=== PATIENT | female | born 1960 ===

== ENCOUNTER 2020-06-03 09:04 | Emergency (ER) | payer MEDICAID, SELFPAY ==
[2020-06-03 09:16] VITALS: BP 115/47; PULSE 87; RESP 20; TEMP 36.6; O2SAT 96; BMI 37.8
[2020-06-03] MEDS: methylPREDNISolone Sod Succ/PF 125 MG/2 ML VIAL IVPUSH (09:38)
[2020-06-03] MEDS: Famotidine/PF 20 MG/2 ML VIAL IVPUSH (09:39)
[2020-06-03] MEDS: diphenhydrAMINE HCL 50 MG/ML VIAL 25 MG IVPUSH (09:39)
--- NOTE | 2020-06-03 09:44 | PC.NURSE ---
PT READS LIPS IF SPOKEN TO IN WELSH SHE WAS MEDICATED CHARTED AWAITING IMPROVEMNT
--- NOTE | 2020-06-03 09:51 | ECG_ITS ---
Test Reason : ALERGI REACTION Blood Pressure : / mmHG Vent. Rate : 067 BPM Atrial Rate : 067 BPM P-R Int : 136 ms QRS Dur : 086 ms QT Int : 452 ms P-R-T Axes : 050 001 048 degrees QTc Int : 477 ms Normal sinus rhythm Septal infarct , age undetermined Abnormal ECG When compared with ECG of 06-MAR-2020 14:38, No significant change was found Referred By: Lissette Cazares Electronically Signed By:JOAQUÍN GRECO
--- NOTE | 2020-06-03 09:53 | ED.ALLEREA ---
HPI - Allergic Reaction General Chief complaint: Allergic Reaction Stated complaint: ALLERGIC REACTION Time Seen by Provider: 06/03/20 09:28 Source: patient Mode of arrival: ambulatory Limitations: language barrier and other ( patient's . Does not do Ecuadorean sign language) History of Present Illness HPI narrative: 59-year-old female with no sig PMHx presenting to ED with allergic reaction/diffuse urticaria x4 days due to unknown source. reports drink water and then had symptoms. Also reports SOB, dizziness, nausea and vomiting. patient has history of similar symptoms in the past which she was seen in the ED. denies throat closing sensation, throat itching, cough, oral swelling, new exposures. clear history difficult due to patient being deaf / language barried and does not use sign language. MD complaint: allergic reaction and hives Symptoms: rash, itching, difficulty breathing, nausea and vomiting Related Data Allergies Allergy/AdvReac Type Severity Reaction Status Date / Time adhesive tape [ADHESIVE TAPE] Allergy Intermediate RASH Unverified 05/14/20 16:36 dolutegravir Allergy Unknown rash Verified 02/12/20 00:00 Review of Systems Review of Systems: Yes all other systems are reviewed and are negative Constitutional: Constitutional: Reports as per HPI, Reports no additional constitutional complaints, Denies chills, Denies fever(s) and Denies headache(s) Eyes: Eyes: Reports as per HPI and Reports no additional eye complaints ENT: Reports system reviewed and no additional complaints, except as documented, Reports as per HPI, Reports dizziness, Denies headache(s) and Denies sore throat Cardiovascular: Cardiovascular: Reports as per HPI, Reports no additional cardiovascular complaints, Denies chest pain and Reports dyspnea Respiratory: Respiratory: Reports as per HPI, Reports no additional respiratory complaints, Reports chest congestion, Denies cough and Reports dyspnea Gastrointestinal: Gastrointestinal: Reports as per HPI, Denies abdominal pain, Denies diarrhea, Reports nausea and Reports vomiting Musculoskeletal: Musculoskeletal: Reports as per HPI Integumentary/Breasts: Skin/Breast: Reports erythema and Reports rash Neurologic: Reports Abnormal speech present, Reports dizziness, Denies headache(s) and Denies Sensory deficit (Neuro) Psychiatric: Psychiatric: Reports no additional psychiatric complaints PMFSH Past Medical History Attestation statement: The following information was validated with the patient. Source: unable to obtain Social History Social History Advance Directives: No Advance Directives Information Provided: No Physical Exam Vital Signs and I&O and Narrative: Vital Signs and I&O: Vital Signs Temp 98 F 06/03/20 09:16 Pulse 73 06/03/20 13:21 Resp 16 06/03/20 12:00 BP 123/75 06/03/20 13:21 Pulse Ox 97 06/03/20 12:00 Intake & Output 06/02/20 06/03/20 06/03/20 18:59 06:59 18:59 Intake Total 1000 / 1000 Balance 1000 / 1000 Weight 90.718 kg Intake: Intake, IV Amoun t 1000 / 1000 0.9 % Sodium C hloride 1,000 ml 1000 / 1000 @ 999 mls/hr I VCONT .Q1H1M APRIL Rx#:[id number] Body Mass Index 37.8 Const: General: cooperative Orientation/consciousness: patient oriented x3 HENMT: Other: no intraoral swelling. Uvula midline Head: Yes normal to inspection General nose exam: Normal external nose present Face and sinus: Yes normal facial exam Mouth: oropharynx normal, no drooling and no muffled voice Throat: Yes posterior oropharynx normal, Yes uvula midline and No uvular edema Eyes: General: appearance normal, both eyes and all related structures Pupils: Equal, round and reactive pupils present EOM: EOMs intact bilaterally Neck: Neck: Yes normal visual inspection and Yes trachea midline Resp: Effort & Inspection: normal respiratory effort and no stridor Auscultation: clear to auscultation bilaterally, no crackles, no rales, no rhonchi and no wheezes Cardio: Rate: regular rate Heart sounds: S1 normal heart sound present and S2 normal heart sound present GI: Inspection: Yes normal to inspection Palpation (GI): Soft to palpation, nontender, no guarding and not rigid Skin: Other: Diffuse urticaria noted to chest /abdomen/back / bilateral upper extremities and bilateral lower extremities with erythema, well demarcated Wounds: no wounds Neuro: General: patient oriented x3 Cranial nerves: Yes CN's II-XII intact bilaterally and Yes Equal, round and reactive pupils present Speech: Abnormal speech present Motor exam (neuro): Motor abnormalities not present Sensory Exam: No Sensory deficit (Neuro) Extrem: General: Yes normal to inspection Course Course Course Narrative: issue with patient's labs being drawn 1429-- patient's labs now resulted , and unremarkable. Orthostatics negative results discussed with patient using science interpreter. She reports symptomatic improvement in the ED, has been comfortable, laughing MDM - Allergic Reaction MDM Narrative Medical decision making narrative: 59-year-old female with no sig PMHx presenting to ED with allergic reaction/diffuse urticaria x4 days due to unknown source. On exam VS, NAD/ well-appearing. Diffuse urticaria noted. Lungs CTA. No intraoral swelling appreciated. Likely allergic reaction. No anaphylaxis. Neurologically intact. Rule out ACS / dehydration / electrolyte abnormalities. Low concern for intra-abdominal pathology Plan: EKG, labs, UA, CXR, symptomatic treatment, reassess. Differential Diagnosis Differential diagnosis: Likely anaphylaxis, allergic reaction, viral enanthem and urticaria Medical Records Attestation: I reviewed the patient's medical records. Lab Data Attestation: I reviewed the patient's lab results. Result diagrams: 06/03/20 13:35 06/03/20 13:35 Labs: Lab Results 06/03/20 06/03/20 06/03/20 Range/Units 13:35 13:35 13:35 WBC 7.8 (4.8-10.8) X10*3/uL RBC 4.52 (4.20-5.50) X10*6/uL Hgb 12.8 (12.0-16.0) g/dl Hct 40.2 (37-47) % MCV 88.9 (80-98) fL MCH 28.3 (27.0-33.0) pg MCHC 31.8 (31.0-35.0) g/dl RDW 12.1 (11.0-16.0) % Plt Count 252 (160-400) X10*3/uL MPV 9.0 L (9.4-12.3) fL Immature Gran % (Auto) 0.3 (0.0-0.4) % Neut % (Auto) 86.2 H (45-73) % Lymph % (Auto) 12.0 L (20-40) % [place] % (Auto) 1.3 L (2-11) % Eos % (Auto) 0.1 (0-4) % Baso % (Auto) 0.1 (0-2) % Neut # (Auto) 6.7 (2.0-8.3) X10*3/uL Lymph # (Auto) 0.9 L (1.2-4.9) X10*3/uL [place] # (Auto) 0.1 (0.1-1.2) X10*3/uL Eos # (Auto) 0.0 (0.0-0.4) X10*3/uL Baso # (Auto) 0.0 (0.0-0.2) X10*3/uL Abs Immat Gran (auto) 0.02 (0.00-0.03) X10*3/uL Absolute Nucleated RBC 0.000 (0.0-0.012) X10*3/uL Nucleated RBC % (auto) 0.0 (0.0-0.2) /100WBC Sodium 141 (135-145) mmol/L Potassium 4.0 (3.3-5.1) mmol/l Chloride 110 H (96-108) mmol/L Carbon Dioxide 23 (22-29) mmol/L Anion Gap 12 (12-20) BUN 15 (9-16) mg/dL Creatinine 0.70 (0.5-1.4) mg/dL Estim Creat Clear Calc 88.7 Estimated GFR > 60 Random Glucose 136 H (60-115) mg/dL Calcium 8.1 L (8.4-10.2) mg/dL Magnesium 2.0 (1.6-2.6) mg/dL Total Bilirubin 0.3 (0.0-1.0) mg/dL Direct Bilirubin < 0.2 (0.0-0.5) mg/dL AST 17 (5-31) U/L ALT 18 (0-31) U/L Alkaline Phosphatase 71 (39-117) U/L Troponin I High Sens < 3.5 (<3.5-17.0) ng/L Total Protein 6.3 L (6.5-8.0) g/dL Albumin 3.8 (3.5-5.0) g/dL Lipase 18 (8-78) U/L Discharge Plan Discharge Clinical Impression: Urticaria, Allergic reaction Patient Disposition: Home, Self-Care Instructions: General Allergic Reaction (ED) Additional Instructions: your blood work was unremarkable today in ED. Her vital signs were also okay from standing to sitting Your rash has subsided Take Benadryl at home as needed for itching/inflammation. You may also take Zyrtec during the day as it will not make you drowsy If her symptoms recur, persist, he developed shortness of breath, cough, rash again, oral swelling, or difficulty swallowing return to the ED immediately Referrals: Benja Silvestre MD [Physician] - 3 days Print Language: Swazi
[2020-06-03 10:16] VITALS: BP 138/66; PULSE 67; RESP 18; O2SAT 98
[2020-06-03] MEDS: 0.9 % Sodium Chloride 1,000 ML 999 ML IVCONT (10:17)
[2020-06-03] MEDS: ondansetron HCL 4 MG/2 ML VIAL IVPUSH (10:22)
[2020-06-03 12:00] VITALS: BP 125/73; PULSE 63; RESP 16; O2SAT 97
[2020-06-03 13:14] VITALS: BP 111/59; PULSE 60
[2020-06-03 13:19] VITALS: BP 113/73; PULSE 67
[2020-06-03 13:21] VITALS: BP 123/75; PULSE 73
[2020-06-03 13:42] LABS: MANUAL DIFF FLAG NO
[2020-06-03 13:44] LABS: Basophils Percent Auto 0.1 % (0-2); Eosinophils Percent Auto 0.1 % (0-4); Hematocrit 40.2 % (37-47); Hemoglobin 12.8 g/dl (12.0-16.0); Imm Gran Abs Auto 0.02 X10*3/uL (0.00-0.03); Imm Gran Pct Auto 0.3 % (0.0-0.4); Lymphocytes Absolute Auto 0.9 X10*3/uL (1.2-4.9); Mean Corpuscular HGB Conc 31.8 g/dl (31.0-35.0); Mean Corpuscular Hemoglobin 28.3 pg (27.0-33.0); Mean Corpuscular Volume 88.9 fL (80-98); Monocytes Absolute Auto 0.1 X10*3/uL (0.1-1.2); Monocytes Percent Auto 1.3 % (2-11); Neutrophils Absolute Auto 6.7 X10*3/uL (2.0-8.3); Neutrophils Percent Auto 86.2 % (45-73); Platelet Count 252 X10*3/uL (160-400); Red Blood Count 4.52 X10*6/uL (4.20-5.50); Red Cell Distribution Width 12.1 % (11.0-16.0); White Blood Count 7.8 X10*3/uL (4.8-10.8)
[2020-06-03 14:11] LABS: Alanine Aminotransferase 18 U/L (0-31); Albumin Level 3.8 g/dL (3.5-5.0); Alkaline Phosphatase 71 U/L (39-117); Anion Gap 12 (12-20); Aspartate Amino Transferase 17 U/L (5-31); Bilirubin Direct < 0.2 mg/dL (0.0-0.5); Bilirubin Total 0.3 mg/dL (0.0-1.0); Blood Urea Nitrogen 15 mg/dL (9-16); Calcium 8.1 mg/dL (8.4-10.2); Carbon Dioxide 23 mmol/L (22-29); Chloride 110 mmol/L (96-108); Creatinine Clr Calc Pharmacy 88.7; Estimated Glomerular Filt Rate > 60; Glucose Random 136 mg/dL (60-115); Lipase 18 U/L (8-78); Sodium 141 mmol/L (135-145); Total Protein 6.3 g/dL (6.5-8.0)
[2020-06-03 14:17] LABS: Troponin-I High Sensitivity < 3.5 ng/L (<3.5-17.0)
== END 2020-06-03 14:50 | disposition home or self-care (01) ==
PROVIDERS: Physician Assistant; Emergency Provider Emergency Medicine
DX: T78.40XA Allergy, unspecified, initial encounter (principal); L50.9 Urticaria, unspecified; X58.XXXA Exposure to other specified factors, initial encounter
CPT/HCPCS: 36415; 80048; 80076; 83690; 83735; 84484; 85025; 93005; 93010; 96361; 96374; 96375; 99284; J1200; J2405; J2930

== ENCOUNTER 2020-06-04 10:10 | Outpatient (REF) | payer MEDICAID, SELFPAY | END 2020-06-04 10:11 | disposition home or self-care (01) | LOC: HO.HAP 10:10 | PROVIDERS: Visit Provider Family Medicine | DX: Z46.1 Encounter for fitting and adjustment of hearing aid (principal) | CPT/HCPCS: 92592 ==

== ENCOUNTER 2020-06-16 12:00 | Outpatient (REF) | payer MEDICAID, SELFPAY ==
--- NOTE | 2020-06-16 12:26 | XR_ITS ---
EXAMINATION: XR SHOULDER, LEFT CLINICAL INFORMATION: Shoulder pain. COMPARISON: None TECHNIQUE: Left shoulder is imaged in 3 views. FINDINGS: There is no fracture or dislocation. The acromioclavicular alignment is normal. The glenohumeral joint is unremarkable. There are no visible rotator cuff calcifications. Bony mineralization appears normal. No destructive process. IMPRESSION: Unremarkable left shoulder.
== END 2020-06-16 12:01 | disposition home or self-care (01) ==
LOC: HO.XRAY 12:00
PROVIDERS: PCP Family Medicine; Referring Provider Family Medicine; Visit Provider Orthopaedic Surgery
DX: M25.511 Pain in right shoulder (principal); M75.42 Impingement syndrome of left shoulder
CPT/HCPCS: 20610; 73030; 99214; J1040

== ENCOUNTER 2020-07-22 17:22 | Observation (INO) | payer MEDICAID, SELFPAY ==
[2020-07-22 17:29] VITALS: BP 158/76; BP 184/79; PULSE 76; PULSE 82; RESP 16; TEMP 37.2; O2SAT 98; BMI 32.5
--- NOTE | 2020-07-22 17:33 | ED.ASTHMA ---
HPI - Asthma General Chief Complaint: Asthma Stated Complaint: diff breathing Time Seen by Provider: 07/22/20 17:33 Source: patient and EMS Mode of arrival: EMS Limitations: language barrier History of Present Illness MD complaint: asthma attack and shortness of breath Onset (ago): hour(s) (few) Severity: moderate Context: recent URI Associated symptoms: dry cough Treatments Prior to Arrival: inhaled bronchodilator Related Data Home Medications Medication Instructions Recorded Confirmed emtricitabine 200 mg-rilpivirine 1 tab PO DAILY 06/16/20 07/22/20 25 mg-tenofovir alafenam 25 mg tablet fluticasone propionate 220 1 puff INHALATION BID 06/16/20 07/22/20 mcg/actuation HFA aerosol inhaler ibuprofen 600 mg tablet 600 mg PO TID 06/16/20 07/22/20 tamoxifen 20 mg tablet 20 mg PO DAILY 06/16/20 07/22/20 tramadol 50 mg tablet 50 mg PO DAILY 06/16/20 07/22/20 albuterol sulfate [ProAir HFA] 2 puff INHALATION Q6H PRN 07/22/20 07/22/20 Allergies Allergy/AdvReac Type Severity Reaction Status Date / Time adhesive tape [ADHESIVE TAPE] Allergy Intermediate RASH Verified 06/16/20 12:43 dolutegravir Allergy Unknown rash Verified 06/16/20 12:43 Review of Systems Review of Systems: Constitutional : No Fever, No Chills ENT/Mouth : No Hoarseness, No sore throat, No Rhinorrhea Eyes: No Redness, No Discharge, No Vision Changes Cardiovascular : No Chest Pain, positive SOB, positive Dyspnea on Exertion, No Edema Respiratory : positive Cough, No Sputum, positive Wheezing, Gastrointestinal : No Nausea, No Vomiting, No Diarrhea, No abdominal Pain Genitourinary : No Dysuria, No Hematuria Musculoskeletal : No joint pain, No Myalgias Skin : No rash Neuro : No Weakness, No Numbness, No Headache Psych : No anxiety, depression Heme/Lymph: No Bruising, No Bleeding Endocrine : No Polyuria, No Polydipsia All other systems reviewed and are negative [facility] Past Medical History Attestation statement: The following information was validated with the patient. Medical History Deafness History of breast cancer HIV (human immunodeficiency virus infection) Primary osteoarthritis of left knee Primary osteoarthritis of right knee Surgical History History of tubal ligation Status post right breast lumpectomy Social History Social History Smoking Status: Never smoker Advance Directives: No Advance Directives Information Provided: Yes Current occupational status: disabled Current occupation: Right Handed Physical Exam Vital Signs: Vital Signs: Last Vital Signs Temp 98.4 F 07/22/20 18:13 Pulse 74 07/22/20 18:13 Resp 16 07/22/20 18:13 BP 145/77 H 07/22/20 18:13 Pulse Ox 96 07/22/20 18:13 Body Mass Index 32.5 Appearance: Alert. Oriented X3. mild acute distress. Eyes: Pupils equal, round and reactive to light. ENT: Pharynx normal. Neck: Normal inspection. Neck supple. CVS: tachycardic heart rate and rhythm. Pulses normal. Respiratory: mildrespiratory distress. Breath sounds insp/exp wheezes, + tachypnea, mild retractions Abdomen: Soft and nontender. Skin: Skin warm and dry. Normal skin color. Normal skin turgor. Extremities: No lower extremity edema. No calf ttp Neuro: Oriented X 3. No motor deficit. No sensory deficit. Course Course Course Narrative: repeat 5mg neb for wheezing at this time still very tight - will need admission for further workup MDM - Asthma MDM Narrative Medical decision making narrative: 60 yo female with asthma and HIV at a family event here with reported URI and wheezing - will need MDI INH, IV steroids, labs, CXR, flu and COVID swab, dispo per results and findings. Lab Data Result diagrams: 07/22/20 18:11 07/22/20 18:11 Labs: Lab Results 07/22/20 07/22/20 07/22/20 Range/Units 18:11 18:11 18:11 WBC 5.8 (4.8-10.8) X10*3/uL RBC 3.99 L (4.20-5.50) X10*6/uL Hgb 11.3 L (12.0-16.0) g/dl Hct 35.6 L (37-47) % MCV 89.2 (80-98) fL MCH 28.3 (27.0-33.0) pg MCHC 31.7 (31.0-35.0) g/dl RDW 12.2 (11.0-16.0) % Plt Count 241 (160-400) X10*3/uL MPV 9.1 L (9.4-12.3) fL Immature Gran % (Auto) 0.2 (0.0-0.4) % Neut % (Auto) 52.5 (45-73) % Lymph % (Auto) 37.1 (20-40) % [place] % (Auto) 7.0 (2-11) % Eos % (Auto) 2.9 (0-4) % Baso % (Auto) 0.3 (0-2) % Lymph # (Auto) 2.2 (1.2-4.9) X10*3/uL [place] # (Auto) 0.4 (0.1-1.2) X10*3/uL Eos # (Auto) 0.2 (0.0-0.4) X10*3/uL Baso # (Auto) 0.0 (0.0-0.2) X10*3/uL Abs Immat Gran (auto) 0.01 (0.00-0.03) X10*3/uL Absolute Neuts (auto) 3.1 (2.0-8.3) X10*3/uL Absolute Nucleated RBC 0.000 (0.0-0.012) X10*3/uL Nucleated RBC % (auto) 0.0 (0.0-0.2) /100WBC Hold Blue Top SEE NOTE Sodium 139 (135-145) mmol/L Potassium 4.1 (3.3-5.1) mmol/l Chloride 106 (96-108) mmol/L Carbon Dioxide 23 (22-29) mmol/L Anion Gap 14 (12-20) BUN 16 (9-16) mg/dL Creatinine 0.77 (0.5-1.4) mg/dL Estim Creat Clear Calc 88.6 Estimated GFR > 60 Random Glucose 138 H (60-115) mg/dL Calcium 8.2 L (8.4-10.2) mg/dL Coronavirus (PCR) (Negative) Influenza Type A (PCR) (Negative) Influenza Type B (PCR) (Negative) RSV RNA Qual (PCR) (Negative) 07/22/20 Range/Units 18:11 WBC (4.8-10.8) X10*3/uL RBC (4.20-5.50) X10*6/uL Hgb (12.0-16.0) g/dl Hct (37-47) % MCV (80-98) fL MCH (27.0-33.0) pg MCHC (31.0-35.0) g/dl RDW (11.0-16.0) % Plt Count (160-400) X10*3/uL MPV (9.4-12.3) fL Immature Gran % (Auto) (0.0-0.4) % Neut % (Auto) (45-73) % Lymph % (Auto) (20-40) % [place] % (Auto) (2-11) % Eos % (Auto) (0-4) % Baso % (Auto) (0-2) % Lymph # (Auto) (1.2-4.9) X10*3/uL [place] # (Auto) (0.1-1.2) X10*3/uL Eos # (Auto) (0.0-0.4) X10*3/uL Baso # (Auto) (0.0-0.2) X10*3/uL Abs Immat Gran (auto) (0.00-0.03) X10*3/uL Absolute Neuts (auto) (2.0-8.3) X10*3/uL Absolute Nucleated RBC (0.0-0.012) X10*3/uL Nucleated RBC % (auto) (0.0-0.2) /100WBC Hold Blue Top Sodium (135-145) mmol/L Potassium (3.3-5.1) mmol/l Chloride (96-108) mmol/L Carbon Dioxide (22-29) mmol/L Anion Gap (12-20) BUN (9-16) mg/dL Creatinine (0.5-1.4) mg/dL Estim Creat Clear Calc Estimated GFR Random Glucose (60-115) mg/dL Calcium (8.4-10.2) mg/dL Coronavirus (PCR) NEGATIVE (Negative) Influenza Type A (PCR) NEGATIVE (Negative) Influenza Type B (PCR) NEGATIVE (Negative) RSV RNA Qual (PCR) NEGATIVE (Negative) Critical Care Time Critical Care Time Critical Care Time: Yes Total Critical Care Time: 35 Attestation: I attest to this time spent taking care of the patient Discharge Plan Discharge Clinical Impression: Asthma Patient Disposition: Admitted As Inpatient Prescriptions: No Action albuterol sulfate [ProAir HFA] 90 mcg/actuation Hfa Aerosol Inhaler 2 puff INHALATION Q6H PRN (Reason: Shortness Of Breath) RF: 0 [place] 200-25-25 mg tablet 1 tab PO DAILY RF: 0 ibuprofen 600 mg tablet 600 mg PO TID RF: 0 Flovent HFA 220 mcg/actuation HFA aerosol inhaler 1 puff inhalation BID RF: 0 tamoxifen 20 mg tablet 20 mg PO DAILY RF: 0 tramadol 50 mg tablet 50 mg PO DAILY RF: 0
--- NOTE | 2020-07-22 17:53 | XR_ITS ---
EXAMINATION: XR CHEST CLINICAL INFORMATION: Dyspnea COMPARISON: Chest radiograph 03/06/2020 and CTA PE study 03/07/2019 TECHNIQUE: Frontal view of the chest was obtained. FINDINGS: Heart size is borderline appears slightly smaller than noted previously. Some of this could be due to projection. There is mild upper zone redistribution which may be indicative of elevated left ventricular end-diastolic pressure and mild pulmonary vascular congestion. No gross edema is seen. No pleural effusions are present. No consolidations or lung masses. XR/XR chest 1V IMPRESSION: Borderline heart size. Mild upper zone redistribution suggesting mild pulmonary vascular congestion without edema.
[2020-07-22 18:13] VITALS: BP 145/77; PULSE 74; RESP 16; TEMP 36.9; O2SAT 96
[2020-07-22 18:19] LABS: Basophils Percent Auto 0.3 % (0-2); Eosinophils Absolute Auto 0.2 X10*3/uL (0.0-0.4); Eosinophils Percent Auto 2.9 % (0-4); Hematocrit 35.6 % (37-47); Hemoglobin 11.3 g/dl (12.0-16.0); Imm Gran Abs Auto 0.01 X10*3/uL (0.00-0.03); Imm Gran Pct Auto 0.2 % (0.0-0.4); Lymphocytes Absolute Auto 2.2 X10*3/uL (1.2-4.9); Lymphocytes Percent Auto 37.1 % (20-40); Mean Corpuscular HGB Conc 31.7 g/dl (31.0-35.0); Mean Corpuscular Hemoglobin 28.3 pg (27.0-33.0); Mean Corpuscular Volume 89.2 fL (80-98); Mean Platelet Volume 9.1 fL (9.4-12.3); Monocytes Absolute Auto 0.4 X10*3/uL (0.1-1.2); Neutrophils Absolute Auto 3.1 X10*3/uL (2.0-8.3); Neutrophils Percent Auto 52.5 % (45-73); Platelet Count 241 X10*3/uL (160-400); Red Blood Count 3.99 X10*6/uL (4.20-5.50); Red Cell Distribution Width 12.2 % (11.0-16.0); White Blood Count 5.8 X10*3/uL (4.8-10.8)
[2020-07-22 18:20] LABS: MANUAL DIFF FLAG NO
[2020-07-22] MEDS: Albuterol Sulfate (0.083%) 2.5 MG/3 ML VIAL.NEB 5 MG INHALE ×2 (18:20→19:35)
[2020-07-22 18:40] LABS: Anion Gap 14 (12-20); Blood Urea Nitrogen 16 mg/dL (9-16); Calcium 8.2 mg/dL (8.4-10.2); Carbon Dioxide 23 mmol/L (22-29); Chloride 106 mmol/L (96-108); Creatinine Clr Calc Pharmacy 88.6; Estimated Glomerular Filt Rate > 60; Glucose Random 138 mg/dL (60-115); Potassium 4.1 mmol/l (3.3-5.1); Sodium 139 mmol/L (135-145)
[2020-07-22] MEDS: methylPREDNISolone Sod Succ/PF 125 MG/2 ML VIAL 60 MG IVPUSH (18:58)
[2020-07-22 19:00] LABS: Influenza A PCR NEGATIVE (Negative); Influenza B PCR NEGATIVE (Negative); Resp Syncy Virus RNA Qual PCR NEGATIVE (Negative); SARS COV2 PCR INHOUSE NEGATIVE (Negative)
[2020-07-22] MEDS: Magnesium Sulfate/H2O 2 GM/50 ML PIGGYBACK IV (19:00)
[2020-07-22 20:00] VITALS: BP 142/62; PULSE 81; RESP 16; TEMP 36.9; O2SAT 95
[2020-07-22 21:57] VITALS: BP 124/55; PULSE 78; RESP 16; TEMP 36.9; O2SAT 99
--- NOTE | 2020-07-22 23:03 | PM.IMHP ---
History of Present Illness Date of Service: 07/22/20 Chief Complaint: wheezing, sob this is a mute, deaf 6-year-old patient who presents to the hospital with complaints of shortness of breath. History is obtained with the help of medical interpreter she is able to read lips Mexican only. patient has a history of asthma, HIV,ductal carcinoma in situ of breast. She reports shortness of breath that started yesterday including wheezing, coughing, with no sputum production. Some chills with no fever. No sick contacts or recent travel. No orthopnea or PND. No lower extremity edema. Patient otherwise has no other symptoms including no headache, change in vision, nausea vomiting, abdominal pain diarrhea or constipation. No urinary symptoms. patient reports chronic knee pain as well as shoulder pain is a the setting of history of osteoarthritis. On arrival to the ED hemodynamically stable with no significant abnormal vitals except for a blood pressure 184/79. Patient is satting 97% on room air. labs unremarkable respiratory viral panel including COVID-19 negative Chest x-ray shows borderline heart size, mild upper zone distribution suggestive of mild pulmonary vascular congestion without edema Past medical history: Asthma, HIV, ductal carcinoma in-situ of breast past surgical history: Hernia repair, lumpectomy, eventual mastectomy, tubal ligation family history: denies social history: Denies tobacco alcohol or illicit drugs Review of Systems Review of Systems: Yes all other systems are reviewed and are negative [facility] Medical History (Updated 07/23/20 @ 05:38 by Meghana Simeon MD) Deafness History of breast cancer HIV (human immunodeficiency virus infection) Primary osteoarthritis of left knee Primary osteoarthritis of right knee Surgical History History of tubal ligation Status post right breast lumpectomy Social History Smoking Status: Unknown if ever smoked Smoked in Last 30 Days: No Use of substances other than those prescribed or required for medical reasons: No Advance Directives: No Advance Directives Information Provided: Yes Current occupational status: disabled Current occupation: Right Handed Meds Allergies Allergy/AdvReac Type Severity Reaction Status Date / Time adhesive tape [ADHESIVE TAPE] Allergy Intermediate RASH Verified 06/16/20 12:43 dolutegravir Allergy Unknown rash Verified 06/16/20 12:43 Home Medications Medication Instructions Recorded Confirmed Type emtricitabine 200 mg-rilpivirine 1 tab PO DAILY 06/16/20 07/22/20 History 25 mg-tenofovir alafenam 25 mg tablet fluticasone propionate 220 1 puff INHALATION BID 06/16/20 07/22/20 History mcg/actuation HFA aerosol inhaler ibuprofen 600 mg tablet 600 mg PO TID 06/16/20 07/22/20 History tamoxifen 20 mg tablet 20 mg PO DAILY 06/16/20 07/22/20 History tramadol 50 mg tablet 50 mg PO DAILY 06/16/20 07/22/20 History albuterol sulfate [ProAir HFA] 2 puff INHALATION Q6H PRN 07/22/20 07/22/20 History Physical Exam Vital Signs and Narrative: Vital Signs: Last Vital Signs Temp 98.5 F 07/22/20 21:57 Pulse 78 07/22/20 21:57 Resp 16 07/22/20 21:57 BP 124/55 L 07/22/20 21:57 Pulse Ox 99 07/22/20 21:57 Body Mass Index 32.5 Const: General: cooperative and no acute distress Orientation/consciousness: patient oriented x3 Eyes: General: appearance normal, both eyes and all related structures Pupils: Equal, round and reactive pupils present Resp: Effort & Inspection: normal respiratory effort, able to speak in complete sentences and abnormal respiratory pattern Auscultation: clear to auscultation bilaterally Cardio: Rate: regular rate Rhythm: regular rhythm GI: Palpation (GI): Soft to palpation Auscultation: normal bowel sounds Skin: General skin exam: no rashes or lesions noted Neuro: General: patient oriented x3 Cranial nerves: Yes Equal, round and reactive pupils present Cognition (Neuro): normal cognition Extrem: General: Yes normal to inspection and Yes no pedal edema Results Labs CBC and Chem 7: 07/22/20 18:11 07/22/20 18:11 Labs: Laboratory Results - last 24 hr 07/22/20 07/22/20 07/22/20 18:11 18:11 18:11 MCV 89.2 MCH 28.3 MCHC 31.7 RDW 12.2 Plt Count 241 MPV 9.1 L Immature Gran % (Auto) 0.2 Neut % (Auto) 52.5 Lymph % (Auto) 37.1 [place] % (Auto) 7.0 Eos % (Auto) 2.9 Baso % (Auto) 0.3 Lymph # (Auto) 2.2 [place] # (Auto) 0.4 Eos # (Auto) 0.2 Baso # (Auto) 0.0 Abs Immat Gran (auto) 0.01 Absolute Neuts (auto) 3.1 Absolute Nucleated RBC 0.000 Nucleated RBC % (auto) 0.0 Hold Blue Top SEE NOTE Anion Gap 14 Estim Creat Clear Calc 88.6 Estimated GFR > 60 Random Glucose 138 H Calcium 8.2 L Coronavirus (PCR) Influenza Type A (PCR) Influenza Type B (PCR) RSV RNA Qual (PCR) 07/22/20 18:11 MCV MCH MCHC RDW Plt Count MPV Immature Gran % (Auto) Neut % (Auto) Lymph % (Auto) [place] % (Auto) Eos % (Auto) Baso % (Auto) Lymph # (Auto) [place] # (Auto) Eos # (Auto) Baso # (Auto) Abs Immat Gran (auto) Absolute Neuts (auto) Absolute Nucleated RBC Nucleated RBC % (auto) Hold Blue Top Anion Gap Estim Creat Clear Calc Estimated GFR Random Glucose Calcium Coronavirus (PCR) NEGATIVE Influenza Type A (PCR) NEGATIVE Influenza Type B (PCR) NEGATIVE RSV RNA Qual (PCR) NEGATIVE Imaging Radiologist's Impressions: Impressions Chest X-Ray 07/22/20 17:53 IMPRESSION: Borderline heart size. Mild upper zone redistribution suggesting mild pulmonary vascular congestion without edema. Assessment and Plan (1) Asthma exacerbation: Status: Acute (2) History of breast cancer: Status: Acute (3) HIV (human immunodeficiency virus infection): Status: Acute (4) Right knee pain: Status: Acute This is a 6-year-old female who presents to the hospital with dyspnea, wheezing found to have asthma exacerbation # dyspnea - most likely secondary to asthma exacerbation versus CHF less likely - denies any orthopnea or PND and no lower extremity edema present - patient has evidence of pulmonary congestion on chest x-ray, will obtain BNP is elevated will further treat with furosemide - will start her on Solu-Medrol, DuoNeb q.i.d. and p.r.n # asthma exacerbation - has wheezing, dyspnea, cough that is dry - will manage as above # right knee pain - no erythema, no swelling, no warmth - has limited range of motion due to pain - most likely secondary to her history of arthritis - pain management with Tylenol # history of breast cancer - status post mastectomy - continue tamoxifen # history of HIV - continue home medication DVT prophylaxis: heparin subcu
[2020-07-22 23:13] VITALS: BP 156/74; PULSE 83; RESP 19; TEMP 36.4; O2SAT 98
[2020-07-22 23:15] VITALS: BP 156/74; PULSE 86; RESP 19; TEMP 36.4; O2SAT 98
[2020-07-22] MEDS: Enoxaparin Sodium 40 MG/0.4 ML SYRINGE SUBCUT (23:49)
[2020-07-22] MEDS: 0.9 % Sodium Chloride Flush 3 ML SYRINGE IVFLUSH (23:49)
[2020-07-23] VITALS (9 sets, daily range): BP systolic 139–191; BP diastolic 73–91; PULSE 74–95; RESP 16–20; TEMP 35.9–37.1; O2SAT 96–100
[2020-07-23] MEDS: Acetaminophen 325 MG TABLET 650 MG PO ×2 (03:44→19:47)
[2020-07-23] MEDS: 0.9 % Sodium Chloride Flush 3 ML SYRINGE IVFLUSH ×3 (07:34→22:28)
[2020-07-23 08:08] LABS: Basophils Percent Auto 0.1 % (0-2); Hematocrit 37.7 % (37-47); Hemoglobin 12.2 g/dl (12.0-16.0); Imm Gran Abs Auto 0.03 X10*3/uL (0.00-0.03); Imm Gran Pct Auto 0.4 % (0.0-0.4); Lymphocytes Absolute Auto 1.1 X10*3/uL (1.2-4.9); MANUAL DIFF FLAG NO; Mean Corpuscular HGB Conc 32.4 g/dl (31.0-35.0); Mean Corpuscular Hemoglobin 28.3 pg (27.0-33.0); Mean Corpuscular Volume 87.5 fL (80-98); Mean Platelet Volume 9.3 fL (9.4-12.3); Monocytes Absolute Auto 0.1 X10*3/uL (0.1-1.2); Neutrophils Absolute Auto 7.1 X10*3/uL (2.0-8.3); Neutrophils Percent Auto 85.5 % (45-73); Platelet Count 257 X10*3/uL (160-400); Red Blood Count 4.31 X10*6/uL (4.20-5.50); Red Cell Distribution Width 12.2 % (11.0-16.0); White Blood Count 8.3 X10*3/uL (4.8-10.8)
[2020-07-23 08:35] LABS: Anion Gap 15 (12-20); Blood Urea Nitrogen 12 mg/dL (9-16); Calcium 8.4 mg/dL (8.4-10.2); Carbon Dioxide 21 mmol/L (22-29); Chloride 104 mmol/L (96-108); Creatinine Clr Calc Pharmacy 101.7; Estimated Glomerular Filt Rate > 60; Glucose Random 170 mg/dL (60-115); Potassium 4.5 mmol/l (3.3-5.1); Sodium 135 mmol/L (135-145)
[2020-07-23 08:43] LABS: B Type Natriuretic Peptide 35 pg/mL (<100)
[2020-07-23] MEDS: Albuterol/Iprat 2.5/0.5MG 3 ML AMPUL.NEB INHALE ×3 (08:52→21:13)
[2020-07-23] MEDS: Tamoxifen Citrate 10 MG TABLET 20 MG PO (10:09)
[2020-07-23] MEDS: Emtricitabine/Tenofov Alafenam TABLET 1 TAB PO (10:10)
[2020-07-23] MEDS: Rilpivirine HCL 25 MG TABLET PO (10:10)
[2020-07-23] MEDS: traMADoL HCL 50 MG TABLET PO (10:10)
--- NOTE | 2020-07-23 13:02 | HO.PM.IMPN ---
Subjective Subjective Date of Service: 07/23/20 Interval History: the patient was seen and evaluated this morning Laying in bed, feels comfortable, receiving nebulizer treatment Denies any fever, chills No reported other overnight events. Systemic review: No fever, chills or weakness No chest pain, palpitation Reporting wheezing and mild shortness of breath and coughing No abdominal pain, nausea or vomiting No urinary symptoms Physical Exam Vital Signs: Vital Signs: Last Vital Signs Temp 97.7 F 07/23/20 11:37 Pulse 86 07/23/20 11:37 Resp 18 07/23/20 11:37 BP 191/77 H 07/23/20 11:37 Pulse Ox 96 07/23/20 11:37 Body Mass Index 32.5 Constitutional : Patient is mute and deaf , Alert, not in distress Neck : Normal inspection, Supple Cardiovascular : RRR, S1 S2, no lower extremity edema Respiratory : Decreased bilateral air entry with bilateral wheezing but no crackles noted Gastrointestinal: soft, lax, Normal bowel sounds, Non tender Skin : Warm/Dry, No rash Neurological : Alert, interactive, No focal deficit Objective Data Current Medications Generic Name Dose Route Start Last Admin Trade Name Freq PRN Reason Stop Dose Admin Acetaminophen 650 mg 07/22/20 23:01 07/23/20 03:44 Acetaminophen 325 Mg Tablet PO 650 mg Q6H PRN Administration Pain, Mild (Pain Scale 1-3) Albuterol/Ipratropium 3 ml 07/22/20 23:01 Albuterol/Iprat 2.5/0.5mg 3 Ml Ampul.Neb INHALE RQ4H PRN Shortness of Breath/Wheezing Albuterol/Ipratropium 3 ml 07/23/20 08:00 07/23/20 12:48 Albuterol/Iprat 2.5/0.5mg 3 Ml Ampul.Neb INHALE Not Given RQ4H WHILE AWAKE APRIL Docusate Sodium 100 mg 07/22/20 23:01 Docusate Sodium 100 Mg Capsule PO DAILY PRN Constipation Emtricitabine/Tenofovir Alafenamide 1 tab 07/23/20 09:00 07/23/20 10:10 Emtricitabine/Tenofov Alafenam Tablet PO 1 tab DAILY APRIL Administration Heparin Sodium (Porcine) 5,000 unit 07/23/20 23:00 Heparin Sodium,Porcine 5,000 Unit/Ml Vial SUBCUT Q12H APRIL Methylprednisolone Sodium Succinate 40 mg 07/22/20 23:01 07/23/20 10:10 Methylprednisolone Sod Succ/Pf 40 Mg/Ml Vial IVPUSH 40 mg Q12H APRIL Administration Ondansetron HCl 4 mg 07/22/20 23:01 Ondansetron Hcl 4 Mg/2 Ml Vial IVPUSH Q8H PRN Nausea and Vomiting Pharmacy Consult 1 each 07/22/20 19:24 Consult Rx Perform Med Rec MISCELLANE ONCE PRN Consult order Rilpivirine 25 mg 07/23/20 09:00 07/23/20 10:10 Rilpivirine Hcl 25 Mg Tablet PO 25 mg DAILY APRIL Administration Sodium Chloride 3 ml 07/23/20 00:00 07/23/20 07:34 0.9 % Sodium Chloride Flush 3 Ml Syringe IVFLUSH 3 ml QSHIFT APRIL Administration Tamoxifen Citrate 20 mg 07/23/20 09:00 07/23/20 10:09 Tamoxifen Citrate 10 Mg Tablet PO 20 mg DAILY APRIL Administration Tramadol HCl 50 mg 07/23/20 09:00 07/23/20 10:10 Tramadol Hcl 50 Mg Tablet PO 50 mg DAILY APRIL Administration Labs CBC & Chem 7: 07/23/20 07:23 07/23/20 07:23 Assessment and Plan (1) Asthma exacerbation: Status: Acute (2) History of breast cancer: Status: Acute (3) HIV (human immunodeficiency virus infection): Status: Acute (4) Right knee pain: Status: Acute Assessment and Plan: This is a 60-year-old female who presents to the hospital with dyspnea, wheezing found to have asthma exacerbation Asthma exacerbation CXR showing mild pulmonary congestion, normal BNP Continue IV Solu-Medrol Continue DuoNeb q.i.d. and p.r.n right knee pain no erythema, no swelling, no warmth likely secondary to history of arthritis pain management with Tylenol history of breast cancer status post mastectomy continue tamoxifen history of HIV continue home medication DVT prophylaxis heparin subcu
--- NOTE | 2020-07-23 16:09 | MHC.CM.PN ---
CM MET WITH PT WITH THE ASSISTANCE OF GENERAL ASSEMBLER INSTALLER. PT IS DEAF, BUT IS ABLE TO READ LIPS AND USE SIGN LANGUAGE. PT REPORTS SHE LIVES ALONE AND IS FULLY INDEPENDENT. PT REPORTS SHE HAD A CANE BUT IT BROKE AND SHE HAS A CPAP. PT REPORTS SHE HAS NO IN HOME SERVICES. PT STATES SHE HAS A PCP WHICH IS ON FILE. PT DOES NOT HAVE A HCP AND REPORTS SHE HAS NO ONE TO NAME. PT REPORTS SHE USES [facility] AND SHE WILL ARRANGE THE SAME TO GET HOME AT [place]. CURRENT DC PLAN IS HOME WITH NO SERVICES
[2020-07-23] MEDS: Heparin Sodium,Porcine 5,000 UNIT/ML VIAL 5000 UNIT SUBCUT (22:27)
[2020-07-24 02:44] VITALS: BP 161/75; PULSE 88; RESP 18; TEMP 36.4; O2SAT 96
[2020-07-24 07:16] LABS: Hematocrit 39.7 % (37-47); Hemoglobin 12.5 g/dl (12.0-16.0); Mean Corpuscular HGB Conc 31.5 g/dl (31.0-35.0); Mean Corpuscular Hemoglobin 27.8 pg (27.0-33.0); Mean Corpuscular Volume 88.4 fL (80-98); Mean Platelet Volume 9.2 fL (9.4-12.3); Platelet Count 299 X10*3/uL (160-400); Red Blood Count 4.49 X10*6/uL (4.20-5.50); Red Cell Distribution Width 12.4 % (11.0-16.0); White Blood Count 14.2 X10*3/uL (4.8-10.8)
[2020-07-24] MEDS: 0.9 % Sodium Chloride Flush 3 ML SYRINGE IVFLUSH (07:38)
[2020-07-24 07:57] LABS: Anion Gap 15 (12-20); Blood Urea Nitrogen 14 mg/dL (9-16); Calcium 8.7 mg/dL (8.4-10.2); Carbon Dioxide 21 mmol/L (22-29); Chloride 104 mmol/L (96-108); Creatinine Clr Calc Pharmacy 104.9; Estimated Glomerular Filt Rate > 60; Glucose Random 150 mg/dL (60-115); Potassium 4.4 mmol/l (3.3-5.1); Sodium 136 mmol/L (135-145)
[2020-07-24 08:00] VITALS: BP 127/63; PULSE 76; RESP 18; TEMP 36.6; O2SAT 97
[2020-07-24] MEDS: traMADoL HCL 50 MG TABLET PO (08:17)
[2020-07-24] MEDS: Rilpivirine HCL 25 MG TABLET PO (08:18)
[2020-07-24] MEDS: Emtricitabine/Tenofov Alafenam TABLET 1 TAB PO (08:18)
[2020-07-24] MEDS: Tamoxifen Citrate 10 MG TABLET 20 MG PO (08:18)
[2020-07-24] MEDS: Albuterol/Iprat 2.5/0.5MG 3 ML AMPUL.NEB INHALE (10:21)
[2020-07-24] MEDS: Heparin Sodium,Porcine 5,000 UNIT/ML VIAL 5000 UNIT SUBCUT (11:10)
--- NOTE | 2020-07-24 11:37 | P.DS_ITS ---
DS: Providers Provider Date of admission: 07/22/20 21:37 Primary care physician: Anne Marie Locke MD DS: Diagnosis Discharge Diagnosis (1) Asthma exacerbation: Status: Acute (2) History of breast cancer: Status: Acute (3) HIV (human immunodeficiency virus infection): Status: Acute (4) Right knee pain: Status: Acute DS: Medications Discharge Medications Home Medications: Home Medications Medication Instructions Recorded Confirmed emtricitabine 200 mg-rilpivirine 1 tab PO DAILY 06/16/20 07/22/20 25 mg-tenofovir alafenam 25 mg tablet fluticasone propionate 220 1 puff INHALATION BID 06/16/20 07/22/20 mcg/actuation HFA aerosol inhaler ibuprofen 600 mg tablet 600 mg PO TID 06/16/20 07/22/20 tamoxifen 20 mg tablet 20 mg PO DAILY 06/16/20 07/22/20 tramadol 50 mg tablet 50 mg PO DAILY 06/16/20 07/22/20 albuterol sulfate [ProAir HFA] 2 puff INHALATION Q6H PRN 07/22/20 07/22/20 Previous Rx's Medication Instructions Recorded prednisone 40 mg PO DAILY #6 tab 07/24/20 DS: Summary Hospital Course Hospital Course: admission note HPI this is a mute, deaf 6-year-old patient who presents to the hospital with complaints of shortness of breath. History is obtained with the help of solar energy systems engineer she is able to read lips Slovak only. patient has a history of asthma, HIV,ductal carcinoma in situ of breast. She reports shortness of breath that started yesterday including wheezing, coughing, with no sputum production. Some chills with no fever. No sick contacts or recent travel. No orthopnea or PND. No lower extremity edema. Patient otherwise has no other symptoms including no headache, change in vision, nausea vomiting, abdominal pain diarrhea or constipation. No urinary symptoms. patient reports chronic knee pain as well as shoulder pain is a the setting of history of osteoarthritis. On arrival to the ED hemodynamically stable with no significant abnormal vitals except for a blood pressure 184/79. Patient is satting 97% on room air. labs unremarkable respiratory viral panel including COVID-19 negative Chest x-ray shows borderline heart size, mild upper zone distribution suggestive of mild pulmonary vascular congestion without edema Hospital course The patient was admitted to the hospital for treatment of asthma exacerbation. She received IV steroids, bronchodilator nebulizers with good response. She did not require oxygen supplement and was able to ambulate freely on room air with no reported shortness of breath or dyspnea. To be discharged home on prednisone for 3 more days Advised to continue her home medications as prescribed Time Spent with Patient Time attestation: Total time spent providing and/or coordinating discharge services: Physical Exam Vital Signs: Vital Signs: Last Vital Signs Temp 97.9 F 07/24/20 08:00 Pulse 76 07/24/20 08:00 Resp 18 07/24/20 08:00 BP 127/63 07/24/20 08:00 Pulse Ox 97 07/24/20 08:00 Body Mass Index 32.5 Constitutional : Patient is mute and deaf , Alert, not in distress Neck : Normal inspection, Supple Cardiovascular : RRR, S1 S2, no lower extremity edema Respiratory : good bilateral air entry, no wheezes or crackles today Gastrointestinal: soft, lax, Normal bowel sounds, Non tender Skin : Warm/Dry, No rash Neurological : Alert, interactive, No focal deficit DS: Data Data Completed and Pending Labs on day of discharge: 07/22/20 17:32 Magnesium Sulfate/H2O 2 gm in 50 ml IV ONCE methylPREDNISolone Sod Succ/PF [SOLU-MedroL] 60 mg IVPUSH ONCE ONE 07/22/20 17:53 XR chest 1V Stat 07/22/20 18:09 Albuterol Sulfate (0.083%) [Ventolin (0.083%)] 5 mg INHALE ONCE ONE 07/22/20 18:11 Basic Metabolic Panel Stat Complete Blood Count Auto Diff Stat Hold Lt Blue - Possible Coag Stat SARS-CoV2/FLU/RSV Stat 07/22/20 19:24 Albuterol Sulfate (0.083%) [Ventolin (0.083%)] 5 mg INHALE ONCE ONE 07/22/20 21:31 Transfer Order Routine 07/22/20 23:01 Albuterol/Iprat 2.5/0.5MG 3 ML [Duoneb] 3 ml INHALE QID ONE Albuterol/Iprat 2.5/0.5MG 3 ML [Duoneb] 3 ml INHALE RQ4H PRN Enoxaparin Sodium [Lovenox] 40 mg SUBCUT Q24H 07/23/20 07:23 B Type Natriuretic Peptide Stat Basic Metabolic Panel Routine Complete Blood Count Auto Diff Routine 07/23/20 09:00 [id number] ala 1 tab PO DAILY methylPREDNISolone Sod Succ/PF [SOLU-MedroL] 40 mg IVPUSH BID 07/24/20 06:09 Basic Metabolic Panel DAILY@0600 Complete Blood Count no Diff DAILY@0600 Laboratory Last Values WBC 14.2 X10*3/uL (4.8-10.8) H 07/24/20 06:09 RBC 4.49 X10*6/uL (4.20-5.50) 07/24/20 06:09 Hgb 12.5 g/dl (12.0-16.0) 07/24/20 06:09 Hct 39.7 % (37-47) 07/24/20 06:09 MCV 88.4 fL (80-98) 07/24/20 06:09 MCH 27.8 pg (27.0-33.0) 07/24/20 06:09 MCHC 31.5 g/dl (31.0-35.0) 07/24/20 06:09 RDW 12.4 % (11.0-16.0) 07/24/20 06:09 Plt Count 299 X10*3/uL (160-400) 07/24/20 06:09 MPV 9.2 fL (9.4-12.3) L 07/24/20 06:09 Immature Gran % (Auto) 0.4 % (0.0-0.4) 07/23/20 07:23 Neut % (Auto) 85.5 % (45-73) H 07/23/20 07:23 Lymph % (Auto) 13.0 % (20-40) L 07/23/20 07:23 Spencer % (Auto) 1.0 % (2-11) L 07/23/20 07:23 Eos % (Auto) 0.0 % (0-4) 07/23/20 07:23 Baso % (Auto) 0.1 % (0-2) 07/23/20 07:23 Lymph # (Auto) 1.1 X10*3/uL (1.2-4.9) L 07/23/20 07:23 Spencer # (Auto) 0.1 X10*3/uL (0.1-1.2) 07/23/20 07:23 Eos # (Auto) 0.0 X10*3/uL (0.0-0.4) 07/23/20 07:23 Baso # (Auto) 0.0 X10*3/uL (0.0-0.2) 07/23/20 07:23 Abs Immat Gran (auto) 0.03 X10*3/uL (0.00-0.03) 07/23/20 07:23 Absolute Neuts (auto) 7.1 X10*3/uL (2.0-8.3) 07/23/20 07:23 Absolute Nucleated RBC 0.000 X10*3/uL (0.0-0.012) 07/24/20 06:09 Nucleated RBC % (auto) 0.0 /100WBC (0.0-0.2) 07/24/20 06:09 Hold Blue Top SEE NOTE 07/22/20 18:11 Sodium 136 mmol/L (135-145) 07/24/20 06:09 Potassium 4.4 mmol/l (3.3-5.1) 07/24/20 06:09 Chloride 104 mmol/L (96-108) 07/24/20 06:09 Carbon Dioxide 21 mmol/L (22-29) L 07/24/20 06:09 Anion Gap 15 (12-20) 07/24/20 06:09 BUN 14 mg/dL (9-16) 07/24/20 06:09 Creatinine 0.65 mg/dL (0.5-1.4) 07/24/20 06:09 Estim Creat Clear Calc 104.9 07/24/20 06:09 Estimated GFR > 60 07/24/20 06:09 Random Glucose 150 mg/dL (60-115) H 07/24/20 06:09 Calcium 8.7 mg/dL (8.4-10.2) 07/24/20 06:09 B-Natriuretic Peptide 35 pg/mL (<100) 07/23/20 07:23 Coronavirus (PCR) NEGATIVE (Negative) 07/22/20 18:11 Influenza Type A (PCR) NEGATIVE (Negative) 07/22/20 18:11 Influenza Type B (PCR) NEGATIVE (Negative) 07/22/20 18:11 RSV RNA Qual (PCR) NEGATIVE (Negative) 07/22/20 18:11 Discharge Plan Discharge Patient Disposition: Home, Self-Care Referrals: Anne Marie Locke MD [Primary Care Provider] - Discharge Medications: New prednisone 20 mg tablet 40 mg PO DAILY Qty: 6 RF: 0 Continued albuterol sulfate [ProAir HFA] 90 mcg/actuation Hfa Aerosol Inhaler 2 puff INHALATION Q6H PRN (Reason: Shortness Of Breath) RF: 0 Odefsey 200-25-25 mg tablet 1 tab PO DAILY RF: 0 ibuprofen 600 mg tablet 600 mg PO TID RF: 0 Flovent HFA 220 mcg/actuation HFA aerosol inhaler 1 puff inhalation BID RF: 0 tamoxifen 20 mg tablet 20 mg PO DAILY RF: 0 tramadol 50 mg tablet 50 mg PO DAILY RF: 0 Discharge Orders: Discharge Order (Routine); Ordered 07/24/20 Ordered By: Serena Mari Diet: advance to usual diet Activity on Discharge: As tolerated Visit Report Forms: Patient Portal Discharge page Care Plan Goals: read below Health Concerns: read below Plan of Treatment: you have presented to the hospital complaining of shortness of breath. Found to have asthma exacerbation. Treated with bronchodilator nebulizers and steroids with good response. Continue home inhalers as prescribed To use prednisone for the next 3 days
--- NOTE | 2020-07-24 11:37 | MHC.CM.PN ---
PATIENT IS DISCHARGED HOME - SELF CARE. RN AWARE OF PLAN PATIENT IS SECURING TRANSPORT HOME
[2020-07-24 11:51] VITALS: BP 141/78; PULSE 74; RESP 18; TEMP 36.4; O2SAT 97
== END 2020-07-24 14:00 | disposition home or self-care (01) ==
LOC: HO.ED 19:55 → HO.S3 22:39
PROVIDERS: Admitting Provider Internal Medicine; Emergency Provider Emergency Medicine; PCP Family Medicine; Visit Provider Student in an Organized Health Care Education/Training Program
DX: J45.901 Unspecified asthma with (acute) exacerbation (principal); B20 Human immunodeficiency virus [HIV] disease; M25.561 Pain in right knee; C50.919 Malignant neoplasm of unspecified site of unspecified female breast; H91.3 Deaf nonspeaking, not elsewhere classified; M17.0 Bilateral primary osteoarthritis of knee; Z20.828 Contact with and (suspected) exposure to other viral communicable diseases; Z79.810 Long term (current) use of selective estrogen receptor modulators (SERMs); Z79.899 Other long term (current) drug therapy
CPT/HCPCS: 0241U; 36415; 71045; 80048; 83880; 85025; 85027; 96365; 96372; 96375; 96376; 99218; 99285; J1650; J2920; J2930; J3475

== ENCOUNTER 2020-09-21 12:35 | Outpatient (REF) | payer MEDICAID, SELFPAY ==
--- NOTE | 2020-09-21 13:40 | MHC.AU.P13 ---
Adult Audiological Evaluation Date of Visit: 09/21/20 Reason for Appointment: Long-standing history of profound hearing loss. Patient arrives to determine if there has been a change in hearing. Patient communicates through a mixture of sign, gestures, and some Somali. Her ENGINEER CHIEF helped facilitate communication with her today. Previous Hearing Test Results: At this clinic on 01/16/2014- Severe to profound sensorineural hearing loss in the right ear. Profound sensorineural hearing loss in the left ear. Medical History: Medical History: Asthma, Breast Cancer (Ductal Carcinoma in Situ), Hypertension, HIV+ Hearing Instrument History- Right Ear: Rn Ed: [employer] Model: Salkum SP7 Serial Number: [id number] Battery Size: 13 Repair Warranty: 02/29/2016 Loss and Damage Warranty: 02/28/2015 Dispensed By: [facility] Date of Fittin03/05/2014 Hearing Instrument History- Left Ear: Rn Ed: Oticon Model: Salkum SP7 Serial Number: [id number] Battery Size: 13 Warranty: Repair Warranty expires 10/11/2020 Original Warranty 02/29/2016 Loss and Damage Warranty: 02/28/2015 Dispensed By: [facility] Date of Fittin03/05/2014 Otoscopy: Right Ear: Unremarkable Left Ear: Unremarkable Tympanometry: Right Ear: Reduced Middle Ear Compliance (Type As) Left Ear: Normal Middle Ear System (Type A) Hearing Evaluation: Transducer(s) Used: Insert Earphones Method: Conventional Audiometry Stimuli Used: Pure Tones Right Ear: Description of Hearing: Severe to profound sensorineural hearing loss Left Ear: Description of Hearing: Profound sensorineural hearing loss Speech Awareness Threshold (SAT): Right Ear: 85 dBHL Left Ear: 100 dBHL Speech Recognition Threshold (SRT): Could not test Word Discrimination: Could not test Comparison: Compared to the most recent evaluation: Thresholds have decreased bilaterally. Recommendations: See Hearing Aid Evaluation report for more information. Audiological re-evaluation if changes are noted. Diagnosis: Primary Diagnosis: H90.3 Bilateral Sensorineural Hearing Loss Services Performed: Services Performed: Pure Tone- Air (CPT 25761), Speech Audiometry Threshold (SRT/SAT) (CPT 80463), Tympanometry (CPT 45745) Signature: Provider: Kelley Xiao, [facility]
--- NOTE | 2020-09-21 14:02 | MHC.AU.HAS ---
Hearing Aid Evaluation Date of Visit: 09/21/20 Historical Information: Description of Hearing: Right: Severe to profound sensorineural hearing loss Left: Profound sensorineural hearing loss Current personal amplification information, if applicable:: Oticon [place] SP7- Dispensed 03/05/2014 Summary: Patient was seen today for audiological evaluation- See separate report for details. Hearing has decreased bilaterally. Hearing aid options discussed. Hearing Aid Prescription: Based on the individual?s shared listening needs, communication environments, dexterity, desire for connectivity, and personal preferences, the following prescription for amplification has been made: Right ear: Vp Talent Management: Phonak Model: Jessa M70-UP Battery Size: 675 Color: White Type of Mold: Microsonic Shell M2000 Clear Left ear: Left ear prescription to be same as Right Hearing Aid above: Vp Talent Management: Phonak Model: Jessa M70-UP Battery Size: 675 Color: White Type of Mold: Microsonic Shell M2000 Clear Action Taken/Action Needed: Earmold Impressions Taken Prior authorization to be requested Medical Clearance to be requested from PCP/ENT Contact brick pitcher at [phone] or [phone] to schedule fitting when materials have arrived. Primary Diagnosis: H90.3 Bilateral Sensorineural Hearing Loss Secondary Diagnosis: N/A Signature: Provider: Kelley Xiao, [facility]
--- NOTE | 2020-09-21 14:55 | MHC.AU.MED ---
Medical Clearance for Hearing Instrumentation Date: 09/21/20 Patient Name: Shireen Lopez Date of : 1960 Primary Care Provider: Referring Provider: Anne Marie Locke MD We have seen your patient on 09/21/20 and have determined that they are a candidate for amplification (See accompanying report). Specifically, they would benefit from: Hearing aid use in both ears There is a statute that addresses Medical Evaluation Requirements prior to fitting a patient with a hearing aid. According to [place] statute 265 CMR:6.03(1), (a) General. Except as provided in 265 CMR 6.03(1)(b), a research leader shall not sell a hearing aid unless the prospective user has presented to the research leader a written statement signed by a licensed physician that states that the patient's hearing loss has been medically evaluated and the patient may be considered a candidate for a hearing aid. The medical evaluation must have taken place within the preceding six months. Please note: Due to the [place] Statute referenced above, we cannot accept a signature other than that of a licensed physician. PUBLIC RELATIONS CONSULTANT and PA signatures cannot be accepted. I am in agreement with the above recommendation. There is no medical contraindication for hearing instrumentation. Physician Signature Date Physician Name (Printed)
== END 2020-09-21 12:36 | disposition home or self-care (01) ==
LOC: HO.SH 12:35
PROVIDERS: Visit Provider Family Medicine
DX: Z46.1 Encounter for fitting and adjustment of hearing aid (principal); H90.3 Sensorineural hearing loss, bilateral
CPT/HCPCS: 92552; 92555; 92567; 92591; V5275

== ENCOUNTER 2020-10-08 14:25 | Outpatient (REF) | payer MEDICAID, SELFPAY ==
--- NOTE | ~2020-10-08 | XR_ITS ---
EXAMINATION: XR FOOT, RIGHT CLINICAL INFORMATION: Question plantar soft tissue foreign body COMPARISON: None TECHNIQUE: AP, lateral, and oblique views of the right foot. FINDINGS: Bone alignment is normal. No fracture or dislocation is seen. There are small osteophytes seen at the first MTP joint. Joint spaces are otherwise normal. There are calcaneal spurs. No radiopaque soft tissue foreign body is seen. XR/XR foot RT min 3V IMPRESSION: No radiopaque soft tissue foreign body seen. Mild degenerative change at the first MTP joint and calcaneal spurs.
== END 2020-10-08 14:26 | disposition home or self-care (01) ==
LOC: HO.XRAY 14:25
PROVIDERS: PCP Family Medicine; Visit Provider Family Medicine
DX: L81.9 Disorder of pigmentation, unspecified (principal)
CPT/HCPCS: 73630

== ENCOUNTER 2020-11-04 09:04 | Outpatient (REF) | payer MEDICAID, SELFPAY ==
--- NOTE | 2020-11-04 13:48 | MHC.AU.P13 ---
Hearing Instrument Fitting- Adult- Binaural Date of Visit: 11/04/20 Pediatric Audiologist Used: ASL- By Video Hearing Instruments Dispensed: Right Ear: Administrative Assistant Coordinator: Phonak Model: Jessa P70-UP Serial Number: [id number] Repair Warranty: 01/19/2024 Loss and Damage Warranty: 01/19/2024 Battery Size: 675 Color: Silver Type of Mold: Microsonic Shell M2000 Clear Left Ear: Administrative Assistant Coordinator: Phonak Model: Jessa P70-UP Serial Number: [id number] RepairWarranty: 01/19/2024 Loss and Damage Warranty: 01/19/2024 Battery Size: 675 Color: Silver Type of Mold: Microsonic Shell M2000 Clear Summary of Fitting: ASL interpretation provided by video. Feedback it program manager run. Target gain set to 100%. Patient was pleased with the sound and fit of the instruments and did not feel any additional adjustments were necessary. Hearing aid care and maintenance were discussed. Recommendations: Patient is an experienced hearing aid user. She will arrange for follow-up if she feels it is necessary. Diagnosis Code(s): Primary Diagnosis: H90.3 Bilateral Sensorineural Hearing Loss Signature: Provider: Kelley Xiao, CCC-A
== END 2020-11-04 09:05 | disposition home or self-care (01) ==
LOC: HO.HAP 09:04
PROVIDERS: Visit Provider Family Medicine
DX: Z46.1 Encounter for fitting and adjustment of hearing aid (principal)
CPT/HCPCS: V5011; V5160; V5261; V5264; V5266

== ENCOUNTER 2021-03-17 13:48 | Outpatient (REF) | payer MEDICAID, SELFPAY | END 2021-03-17 13:49 | disposition home or self-care (01) | LOC: HO.HAP 13:48 | PROVIDERS: Visit Provider Family Medicine | DX: Z46.1 Encounter for fitting and adjustment of hearing aid (principal); H90.3 Sensorineural hearing loss, bilateral | CPT/HCPCS: V5266 ==

== ENCOUNTER 2021-04-13 11:25 | Emergency (ER) | payer MEDICAID, SELFPAY ==
--- NOTE | ~2021-04-13 | CT_ITS ---
EXAMINATION: CT abdomen pelvis wo con CLINICAL INFORMATION: Reason for Exam Diverticulitis? abdominal pain and diarrhea. COMPARISON: No prior CT available for comparison. TECHNIQUE: Multidetector volumetric imaging was performed from the superior aspect of the liver through the pubic symphysis , noncontrasted study. Sagittal and coronal reformatted images were obtained on the technologist's workstation. This CT examination was performed using dose optimization techniques as appropriate, variously including the following: *Automated exposure control *Adjustment of mA and/or kV according to patient size (this includes techniques or standardized protocols for targeted exams where dose is matched to indication/reason for exam; i.e. extremities or head) *Use of iterative reconstruction technique DLP: 715 mGy-cm FINDINGS: LOWER THORAX: There is a solid noncalcified nodule middle lobe measures 1.3 x 0.9 cm, this has not changed from prior exam of 03/06/2020. There is a probably hiatal hernia the GE junction. HEPATOBILIARY: Evaluation of the liver is limited on this noncontrasted study. Liver is diffusely hypodense suggesting hepatic steatosis. GALLBLADDER: There is a large probably cholesterol stone in the gallbladder. SPLEEN: Spleen is normal in size. PANCREAS: No focal mass or ductal dilatation. STOMACH AND GASTROINTESTINAL TRACT: Stomach is grossly unremarkable. There is circumferential wall thickening, wall edema of the descending and sigmoid colon along with mild pericolic fat stranding, there is no evidence of underlying diverticular disease, differential would include acute inflammatory or infection colitis, IBD, less commonly neoplastic and ischemic. Evaluation is limited on this noncontrasted study. This has newly developed since prior CT. No CT evidence of appendicitis. ADRENALS: No adrenal nodules. KIDNEYS/URETERS: There is a tiny 3 mm nonobstructing stone in the right kidney, no hydronephrosis. Perinephric fat are clear. URINARY BLADDER: Partially decompressed. PELVIC VISCERA: Redemonstration of prominence of the uterine endometrium, endometrial thickening unchanged. PERITONEUM: There is a trace amount of free fluid in the peritoneum. There is no free air. LYMPH NODES: No lymphadenopathy. VASCULAR:Mild vascular calcifications. No aneurysm. BONES, ABDOMINAL WALL AND SOFT TISSUES: There is postsurgical changes of from prior anterior abdominal wall hernia repair CT/CT abdomen pelvis wo con IMPRESSION: 1. There is circumferential wall thickening edema involving a long segment of the colon, transverse, descending and sigmoid colon, there is minimal pericolic fat stranding, in the absence of underlying diverticular disease, this is nonspecific, differential would include infection or inflammatory condition IBD, versus less commonly ischemic and neoplastic. Evaluation is limited on this noncontrasted study. Clinical correlation and follow-up recommended. 2. Other findings unchanged including cholelithiasis, hepatic steatosis, 1.3 cm middle lobe lung nodule, thickened endometrium, tiny nonobstructing right kidney stone, mild vascular calcifications, surgical changes from prior hernia repair.
[2021-04-13 12:03] VITALS: BP 141/78; PULSE 75; RESP 18; TEMP 36.6; O2SAT 98; BMI 36.6
[2021-04-13 14:15] LABS: MANUAL DIFF FLAG NO
[2021-04-13 14:16] LABS: Basophils Percent Auto 0.3 % (0-2); Eosinophils Absolute Auto 0.1 X10*3/uL (0.0-0.4); Eosinophils Percent Auto 0.7 % (0-4); Hematocrit 40.3 % (37-47); Hemoglobin 12.9 g/dl (12.0-16.0); Imm Gran Abs Auto 0.01 X10*3/uL (0.00-0.03); Imm Gran Pct Auto 0.1 % (0.0-0.4); Lymphocytes Absolute Auto 1.6 X10*3/uL (1.2-4.9); Lymphocytes Percent Auto 22.6 % (20-40); Mean Corpuscular Volume 87.6 fL (80-98); Mean Platelet Volume 9.3 fL (9.4-12.3); Monocytes Absolute Auto 0.5 X10*3/uL (0.1-1.2); Monocytes Percent Auto 7.6 % (2-11); Neutrophils Absolute Auto 4.9 X10*3/uL (2.0-8.3); Neutrophils Percent Auto 68.7 % (45-73); Platelet Count 229 X10*3/uL (160-400); Red Cell Distribution Width 12.5 % (11.0-16.0); White Blood Count 7.1 X10*3/uL (4.8-10.8)
[2021-04-13 14:41] LABS: Anion Gap 13 (12-20); Blood Urea Nitrogen 8 mg/dL (9-16); Calcium 8.9 mg/dL (8.4-10.2); Carbon Dioxide 27 mmol/L (22-29); Chloride 103 mmol/L (96-108); Creatinine Clr Calc Pharmacy 78.3; Estimated Glomerular Filt Rate > 60; Glucose Random 120 mg/dL (60-115); Potassium 3.4 mmol/L (3.3-5.1); Sodium 140 mmol/L (135-145)
[2021-04-13 16:27] LABS: Alanine Aminotransferase 18 U/L (0-31); Alkaline Phosphatase 71 U/L (39-117); Aspartate Amino Transferase 15 U/L (5-31); Bilirubin Direct 0.2 mg/dL (0.0-0.5); Bilirubin Total 0.4 mg/dL (0.0-1.0); Lipase 19 U/L (8-78); Magnesium 2.2 mg/dL (1.6-2.6); Total Protein 6.8 g/dL (6.5-8.0)
[2021-04-13 16:38] VITALS: BP 159/84; PULSE 73; O2SAT 99
--- NOTE | 2021-04-13 17:55 | ED_ITS ---
HPI - Abdominal Pain General Chief Complaint: Abdominal Pain Stated Complaint: abd pain Time Seen by Provider: 04/13/21 16:07 Source: patient Mode of arrival: ambulatory Limitations: no limitations History of Present Illness HPI narrative: Patient presents to the ED for abdominal pain and diarrhea for the past 4 days. Patient also states nausea and emesis. patient denies any chest pain or shortness of breath. Patient denies any blood in stool. Patient states no new antibiotics or recent hospital admission MD elicited complaint: abdominal pain Related Data Home Medications Medication Instructions Recorded Confirmed emtricitabine 200 mg-rilpivirine 1 tab PO DAILY 06/16/20 07/22/20 25 mg-tenofovir alafenam 25 mg tablet (Odefsey) fluticasone propionate 220 1 puff INHALATION BID 06/16/20 07/22/20 mcg/actuation HFA aerosol inhaler (Flovent HFA) ibuprofen 600 mg tablet 600 mg PO TID 06/16/20 07/22/20 tamoxifen 20 mg tablet 20 mg PO DAILY 06/16/20 07/22/20 tramadol 50 mg tablet 50 mg PO DAILY 06/16/20 07/22/20 albuterol sulfate 90 mcg/actuation 2 puff INHALATION Q6H PRN 07/22/20 07/22/20 aerosol inhaler (ProAir HFA) Previous Rx's Medication Instructions Recorded prednisone 20 mg tablet 40 mg PO DAILY #6 tab 07/24/20 ciprofloxacin HCl 500 mg tablet 500 mg PO Q12H 7 Days #14 tab 04/13/21 metronidazole 500 mg tablet 500 mg PO Q12H 7 Days #14 tab 04/13/21 Allergies Allergy/AdvReac Type Severity Reaction Status Date / Time adhesive tape [ADHESIVE TAPE] Allergy Intermediate RASH Verified 06/16/20 12:43 dolutegravir Allergy Unknown rash Verified 06/16/20 12:43 Review of Systems Review of Systems Yes all other systems are reviewed and are negative Constitutional: Reports as per HPI and Reports no additional constitutional c omplaints Eyes: Reports as per HPI and Reports no additional eye complaints Reports system reviewed and no additional complaints, except as documented and Reports as per HPI Cardiovascular: Reports as per HPI and Reports no additional cardiovascular co mplaints Respiratory: Reports as per HPI and Reports no additional respiratory complaints Gastrointestinal: Reports as per HPI, Reports no additional gastrointestinal complaints, Reports abdominal pain, Reports diarrhea, Reports nausea and Reports vomiting Genitourinary: Reports no additional female genitourinary complaints and Reports as per HPI Musculoskeletal: Reports no additional musculoskeletal complaints and Reports as per HPI Psychiatric: Reports no additional psychiatric complaints and Reports as per HPI Physical Exam Vital Signs: Vital Signs: Last Vital Signs Temp 97.8 F 04/13/21 12:03 Pulse 91 04/13/21 19:25 Resp 18 04/13/21 19:25 BP 140/77 H 04/13/21 19:25 Pulse Ox 100 04/13/21 19:25 Body Mass Index 36.6 Const: General: cooperative, healthy appearing, comfortable, no acute distress, well developed, alert and awake Orientation/consciousness: patient oriented x3 HENMT: Head: Yes normal to inspection, Yes No palpable skull fracture present, Yes normocephalic and Yes atraumatic Eyes: General: appearance normal, both eyes and all related structures Neck: Neck: Yes normal visual inspection, Yes full ROM, Yes no lymphadenopathy, Yes no meningeal signs, Yes trachea midline, Yes supple and No tender Chest: Chest palpation & inspection: normal inspection of the chest and normal palpation of entire chest wall Resp: Effort & Inspection: normal respiratory effort and able to speak in complete sentences Auscultation: clear to auscultation bilaterally Cardio: Jugular venous distension: no JVD Heart sounds: S1 normal heart sound present and S2 normal heart sound present GI: Inspection: Yes normal to inspection and No abdominal wall ecchymosis Palpation (GI): Soft to palpation, not firm, Tenderness to palpation present (GI) (diffuse tenderness), no guarding and not rigid : General: No CVA tenderness and Yes no CVA tenderness Back/Spine/Pelvis: Back: no CVA tenderness, No CVA tenderness and No back tenderness Skin: General skin exam: no rashes or lesions noted and elasticity normal Neuro: General: patient oriented x3, gait normal, no meningeal signs and CN's II-XI intact bilaterally Cranial nerves: Yes CN's II-XII intact bilaterally Extrem: General: Yes normal to inspection and Yes full ROM Course Course Course Narrative: Patient will have labs and Abdominal CT scan ordered Reevaluation(s) Reevaluation #1: labs negative for elevated WBC, elevated liver enzyme, or electrolytes defiencey. Will send for abdominal CT scan Time: 14:11 Reevaluation #2: Abdominal Scan shows diffuse colitis probable unlikely neoplastic/ischemicia. Will discharge with anttibiotics and informed to follow up with Gastroenterology. Stool culture ordered, but patient not able to give stool sample. patient informed to follow up with PCP for outpatient stool culture. Patient kasi bonilla ischemia abdomen. Time: 18:06 MDM - Abdominal Pain MDM Narrative Medical decision making narrative: Colitis Lab Data Result diagrams: 04/13/21 14:11 04/13/21 14:11 Labs: Lab Results 04/13/21 04/13/21 Range/Units 14:11 14:11 WBC 7.1 (4.8-10.8) X10*3/uL RBC 4.60 (4.20-5.50) X10*6/uL Hgb 12.9 (12.0-16.0) g/dl Hct 40.3 (37-47) % MCV 87.6 (80-98) fL MCH 28.0 (27.0-33.0) pg MCHC 32.0 (31.0-35.0) g/dl RDW 12.5 (11.0-16.0) % Plt Count 229 (160-400) X10*3/uL MPV 9.3 L (9.4-12.3) fL Immature Gran % (Auto) 0.1 (0.0-0.4) % Neut % (Auto) 68.7 (45-73) % Lymph % (Auto) 22.6 (20-40) % [place] % (Auto) 7.6 (2-11) % Eos % (Auto) 0.7 (0-4) % Baso % (Auto) 0.3 (0-2) % Lymph # (Auto) 1.6 (1.2-4.9) X10*3/uL [place] # (Auto) 0.5 (0.1-1.2) X10*3/uL Eos # (Auto) 0.1 (0.0-0.4) X10*3/uL Baso # (Auto) 0.0 (0.0-0.2) X10*3/uL Abs Immat Gran (auto) 0.01 (0.00-0.03) X10*3/uL Absolute Neuts (auto) 4.9 (2.0-8.3) X10*3/uL Absolute Nucleated RBC 0.000 (0.0-0.012) X10*3/uL Nucleated RBC % (auto) 0.0 (0.0-0.2) /100WBC Sodium 140 (135-145) mmol/L Potassium 3.4 (3.3-5.1) mmol/L Chloride 103 (96-108) mmol/L Carbon Dioxide 27 (22-29) mmol/L Anion Gap 13 (12-20) BUN 8 L (9-16) mg/dL Creatinine 0.77 (0.5-1.4) mg/dL Estim Creat Clear Calc 78.3 Estimated GFR > 60 Random Glucose 120 H (60-115) mg/dL Calcium 8.9 (8.4-10.2) mg/dL Magnesium 2.2 (1.6-2.6) mg/dL Total Bilirubin 0.4 (0.0-1.0) mg/dL Direct Bilirubin 0.2 (0.0-0.5) mg/dL AST 15 (5-31) U/L ALT 18 (0-31) U/L Alkaline Phosphatase 71 (39-117) U/L Total Protein 6.8 (6.5-8.0) g/dL Albumin 4.0 (3.5-5.0) g/dL Lipase 19 (8-78) U/L Discharge Plan Discharge Clinical Impression: Colitis Patient Disposition: Home, Self-Care Instructions: Colitis (ED) Additional Instructions: Goel tomograf?a computarizada abdominal muestra suellen posible colitis difusa debido a suellen enfermedad inflamatoria intestinal frente a suellen neoplasia / isquemia menos probable. Se le naomie? de efrain con antibi?ticos. Necesitar? un seguimiento con gastroenterolog?a. Regrese al servicio de urgencias inmediatamente si empeora el dolor abdominal, fiebre, escalofr?os, n?useas, v?mitos, heces negras, marcella en las heces o cualquier otro s?ntoma preocupante. Prescriptions: New ciprofloxacin HCl 500 mg tablet 500 mg PO Q12H 7 Days Qty: 14 RF: 0 metronidazole 500 mg tablet 500 mg PO Q12H 7 Days Qty: 14 RF: 0 No Action albuterol sulfate [ProAir HFA] 90 mcg/actuation Hfa Aerosol Inhaler 2 puff INHALATION Q6H PRN (Reason: Shortness Of Breath) RF: 0 prednisone 20 mg tablet 40 mg PO DAILY Qty: 6 RF: 0 Odefsey 200-25-25 mg tablet 1 tab PO DAILY RF: 0 ibuprofen 600 mg tablet 600 mg PO TID RF: 0 Flovent HFA 220 mcg/actuation HFA aerosol inhaler 1 puff inhalation BID RF: 0 tamoxifen 20 mg tablet 20 mg PO DAILY RF: 0 tramadol 50 mg tablet 50 mg PO DAILY RF: 0 Referrals: Alphonso Kaufman [Physician] - 2 days (Diffuse COllitis. IBD versus neoplasm) Interventions: ED Discharge Assessment Last Done: 04/13/21 19:33 Discharge Date/Time: 04/13/21 19:33 Print Language: [place] [facility] Past Medical History Medical History (Updated 04/14/21 @ 00:00 by Pee Dukes) Asthma Deafness History of breast cancer HIV (human immunodeficiency virus infection) Primary osteoarthritis of left knee Primary osteoarthritis of right knee Right knee pain Surgical History History of tubal ligation Status post right breast lumpectomy Social History Social History Advance Directives: No Advance Directives Information Provided: Yes Patient : No service: No Current occupational status: disabled Current occupation: Right Handed
[2021-04-13] MEDS: Ketorolac Tromethamine 15 MG/ML VIAL 30 MG IM (19:23)
[2021-04-13 19:25] VITALS: BP 140/77; PULSE 91; RESP 18; O2SAT 100
== END 2021-04-13 19:33 | disposition home or self-care (01) ==
PROVIDERS: Physician Assistant; Emergency Provider Emergency Medicine
DX: K52.9 Noninfective gastroenteritis and colitis, unspecified (principal); R10.9 Unspecified abdominal pain; B20 Human immunodeficiency virus [HIV] disease
CPT/HCPCS: 36415; 74176; 80048; 80076; 83690; 83735; 85025; 96372; 99284; J1885

== ENCOUNTER 2021-08-27 11:50 | Emergency (ER) | payer MEDICAID, SELFPAY ==
--- NOTE | ~2021-08-27 | XR_ITS ---
EXAMINATION: XR chest 1V CLINICAL INFORMATION: Shortness of breath wheezing COMPARISON: Prior chest x-ray 07/22/2020 TECHNIQUE: XR chest 1V Tubes and lines: None Lungs and pleura: Mild pulmonary vascular congestion without landon failure. No lobar consolidation pneumonia. No significant pleural effusion. Heart and mediastinum: The mediastinum is within normal limits.. Bones/soft tissue: Skeletal structures included are normal for patient's age. XR/XR chest 1V IMPRESSION: Mild vascular congestion without landon failure. No significant pleural effusion.
--- NOTE | 2021-08-27 12:01 | ECG_ITS ---
Test Reason : CHEST PAIN Blood Pressure : / mmHG Vent. Rate : 073 BPM Atrial Rate : 073 BPM P-R Int : 140 ms QRS Dur : 088 ms QT Int : 418 ms P-R-T Axes : 050 012 051 degrees QTc Int : 460 ms Normal sinus rhythm Normal ECG When compared with ECG of 03-JUN-2020 10:30, No significant change was found Referred By: Dolores Mathews Electronically Signed By:Kannan Crystal
[2021-08-27 12:02] VITALS: BP 136/68; BP 164/100; PULSE 75; PULSE 83; RESP 20; TEMP 37.3; O2SAT 98; BMI 30.7
--- NOTE | 2021-08-27 12:08 | ED.URI ---
HPI - URI/Sore Throat General Chief Complaint: Upper Respiratory Symptoms Stated Complaint: COUGH, BODY ACHES, FEVER Time Seen by Provider: 08/27/21 12:01 Source: patient and EMS History of Present Illness HPI Narrative: 61 y/o deaf female with history of HIV, asthma, HTN who presents to the ED from home via EMS with SOB, cough, headache, nausea, vomiting that started 1 day ago. She is fully vaccinated for COVID-19. She reports not feeling well at all. She has body aches and dry cough. She has had no fevers, chills, abdominal pain. No known COVID exposures. She lives home alone. MD elicited complaint: cough and other (vomiting, body aches, SOB) Pertinent past history: HIV and asthma Onset (ago): day(s) (1-2) Consistency: intermittent Severity: moderate Description of mucous: clear Able to tolerate fluids by mouth: Yes Exacerbating factors: nothing Relieving factors: nothing Associated symptoms: myalgias, headache, nasal congestion, cough, chest pain, shortness of breath, nausea and vomiting Treatments prior to arrival: none Related Data Home Medications Medication Instructions Recorded Confirmed emtricitabine 200 mg-rilpivirine 1 tab PO DAILY 06/16/20 07/22/20 25 mg-tenofovir alafenam 25 mg tablet (Isa) fluticasone propionate 220 1 puff INHALATION BID 06/16/20 07/22/20 mcg/actuation HFA aerosol inhaler (Flovent HFA) ibuprofen 600 mg tablet 600 mg PO TID 06/16/20 07/22/20 tamoxifen 20 mg tablet 20 mg PO DAILY 06/16/20 07/22/20 tramadol 50 mg tablet 50 mg PO DAILY 06/16/20 07/22/20 albuterol sulfate 90 mcg/actuation 2 puff INHALATION Q6H PRN 07/22/20 07/22/20 aerosol inhaler (ProAir HFA) Previous Rx's Medication Instructions Recorded prednisone 20 mg tablet 40 mg PO DAILY #6 tab 07/24/20 ciprofloxacin HCl 500 mg tablet 500 mg PO Q12H 7 Days #14 tab 04/13/21 metronidazole 500 mg tablet 500 mg PO Q12H 7 Days #14 tab 04/13/21 ondansetron 4 mg disintegrating 4 mg PO Q8H PRN #10 tab 08/27/21 tablet prednisone 20 mg tablet 40 mg PO DAILY #10 tab 08/27/21 Allergies Allergy/AdvReac Type Severity Reaction Status Date / Time adhesive tape [ADHESIVE TAPE] Allergy Intermediate RASH Verified 06/16/20 12:43 dolutegravir Allergy Unknown rash Verified 06/16/20 12:43 Review of Systems Review of Systems: Constitutional: No Fever, + Chills ENT/Mouth: + sore throat, No Rhinorrhea, No Swallowing Difficulty Eyes: No Eye Pain, No Swelling, No Redness Cardiovascular: + Chest Pain, + SOB, No Orthopnea, No Edema Respiratory: + Cough, No Sputum, + Wheezing, No dyspnea Gastrointestinal: + Nausea, + Vomiting, No Diarrhea, No abdominal Pain Genitourinary: No Dysuria, No Urinary Frequency, No Hematuria Musculoskeletal: No joint pain, No Myalgias Skin: No Skin Lesions, No rash Neuro: + Weakness, No Numbness, No Dizziness, + Headache Psych: + Anxiety/Panic, No Depression Heme/Lymph: No Bruising, No Lymphadenopathy Endocrine: No Polyuria, No Polydipsia [facility] Past Medical History Medical History (Updated 08/27/21 @ 13:31 by VIVIANA Hobbs) Asthma Deafness History of breast cancer HIV (human immunodeficiency virus infection) Primary osteoarthritis of left knee Primary osteoarthritis of right knee Right knee pain Surgical History History of tubal ligation Status post right breast lumpectomy Social History Social History Alcohol intake: unknown Patient Tobacco Use Status: Tobacco use Unknown Advance Directives: No Advance Directives Information Provided: Yes service: No Current occupational status: disabled Current occupation: Right Handed Physical Exam Vital Signs: Vital Signs: Last Vital Signs Temp 99.2 F 08/27/21 12:02 Pulse 75 08/27/21 14:06 Resp 19 08/27/21 14:06 BP 136/68 08/27/21 12:02 Pulse Ox 99 08/27/21 14:06 BMI result Body Mass Index 30.7 Appearance: Alert. Oriented X3. No acute distress. Eyes: Pupils equal, round and reactive to light. ENT: Pharynx normal. Neck: Normal inspection. Neck supple. CVS: Normal heart rate and rhythm. Pulses normal. Respiratory: No respiratory distress. Breath sounds with expiratory wheezes in RUL. Abdomen: Soft and nontender. +BS x4 Skin: Skin warm and dry. Normal skin color. Normal skin turgor. No rashes. Extremities: No lower extremity edema. No calf tenderness Neuro: Oriented X 3. No motor deficit. No sensory deficit. Very [place] Course Course Course Narrative: 61-year-old female presenting to the ER with multiple complaints including nausea, vomiting, chest pain, headache, shortness of breath this started 2 days ago. She is fully vaccinated for COVID-19 but is afraid she may have a virus. On arrival she is in no respiratory distress with sats 98% on room air. She has low-grade fever 99.2. Hemodynamically stable. She does have expiratory wheezing in the right lung denton. Will give albuerol inhaler until COVID status is known. Chest x-ray, EKG and lab workup ordered. Reevaluation(s) Reevaluation #1: Lab workup is unremarkable. K mildly low 3.2, oral replacement ordered. Chest x-ray without overt pneumonia. BNP normal. Lung aeration improved after albuterol. No vomiting here, sleeping after Zofran. Reevaluation #2: Pt found to be COVID positive. SPO2 98% on room air. No distress. At this time patient is stable for discharge home with PO steroids, PRN zofran and supportive care. Will refer for monoclonal antibodies. Stable for d/c. MDM - URI/Sore Throat Medical Records Attestation: I reviewed the patient's medical records. Lab Data Attestation: I reviewed the patient's lab results. Result diagrams: 08/27/21 12:18 08/27/21 12:18 Labs: Lab Results 08/27/21 08/27/21 08/27/21 Range/Units 12:17 12:17 12:17 WBC (4.8-10.8) X10*3/uL RBC (4.20-5.50) X10*6/uL Hgb (12.0-16.0) g/dl Hct (37.0-47.0) % MCV (80.0-98.0) fL MCH (27.0-33.0) pg MCHC (31.0-35.0) g/dl RDW (11.0-16.0) % Plt Count (160-400) X10*3/uL MPV (9.4-12.3) fL Immature Gran % (Auto) (0.0-0.4) % Neut % (Auto) (45-73) % Lymph % (Auto) (20-40) % [place] % (Auto) (2-11) % Eos % (Auto) (0-4) % Baso % (Auto) (0-2) % Lymph # (Auto) (1.2-4.9) X10*3/uL [place] # (Auto) (0.1-1.2) X10*3/uL Eos # (Auto) (0.0-0.4) X10*3/uL Baso # (Auto) (0.0-0.2) X10*3/uL Abs Immat Gran (auto) (0.00-0.03) X10*3/uL Absolute Neuts (auto) (2.0-8.3) x10*3/uL Absolute Nucleated RBC (0.0-0.012) X10*3/uL Nucleated RBC % (auto) (0.0-0.2) /100WBC Sodium (135-145) mmol/L Potassium (3.3-5.1) mmol/L Chloride (96-108) mmol/L Carbon Dioxide (22-29) mmol/L Anion Gap (12-20) BUN (9-16) mg/dL Creatinine (0.5-1.4) mg/dL Estim Creat Clear Calc Estimated GFR Random Glucose (60-115) mg/dL Lactic Acid 0.9 (0.5-2.0) mmol/L Calcium (8.4-10.2) mg/dL Magnesium (1.6-2.6) mg/dL Total Bilirubin (0.0-1.0) mg/dL Direct Bilirubin (0.0-0.5) mg/dL AST (5-31) U/L ALT (0-31) U/L Alkaline Phosphatase (39-117) U/L Troponin I High Sens 4.7 (<3.5-17.0) ng/L C-Reactive Protein (< or = 0.50) mg/dL B-Natriuretic Peptide 22 (<100) pg/mL Total Protein (6.5-8.0) g/dL Albumin (3.5-5.0) g/dL Procalcitonin 0.02 ng/mL Urine Color Urine Appearance Urine pH (5.0-8.0) Ur Specific [place] (1.005-1.025) Urine Protein (NEG-TRACE) MG/DL Urine Glucose (UA) (NEG) MG/DL Urine Ketones (NEG) MG/DL Urine Blood (NEG) Urine Nitrite (NEG) Ur Leukocyte Esterase (NEG) Influenza Type A (PCR) (Negative) Influenza Type B (PCR) (Negative) RSV RNA Qual (PCR) (Negative) SARS-CoV-2 RNA (RT-PCR) (Negative) 08/27/21 08/27/21 08/27/21 Range/Units 12:18 12:18 12:18 WBC 6.5 (4.8-10.8) X10*3/uL RBC 4.32 (4.20-5.50) X10*6/uL Hgb 12.1 (12.0-16.0) g/dl Hct 37.3 (37.0-47.0) % MCV 86.3 (80.0-98.0) fL MCH 28.0 (27.0-33.0) pg MCHC 32.4 (31.0-35.0) g/dl RDW 11.9 (11.0-16.0) % Plt Count 237 (160-400) X10*3/uL MPV 9.0 L (9.4-12.3) fL Immature Gran % (Auto) 0.2 (0.0-0.4) % Neut % (Auto) 60.6 (45-73) % Lymph % (Auto) 29.6 (20-40) % [place] % (Auto) 7.9 (2-11) % Eos % (Auto) 1.5 (0-4) % Baso % (Auto) 0.2 (0-2) % Lymph # (Auto) 1.9 (1.2-4.9) X10*3/uL [place] # (Auto) 0.5 (0.1-1.2) X10*3/uL Eos # (Auto) 0.1 (0.0-0.4) X10*3/uL Baso # (Auto) 0.0 (0.0-0.2) X10*3/uL Abs Immat Gran (auto) 0.01 (0.00-0.03) X10*3/uL Absolute Neuts (auto) 3.9 (2.0-8.3) x10*3/uL Absolute Nucleated RBC 0.000 (0.0-0.012) X10*3/uL Nucleated RBC % (auto) 0.0 (0.0-0.2) /100WBC Sodium 139 (135-145) mmol/L Potassium 3.2 L (3.3-5.1) mmol/L Chloride 106 (96-108) mmol/L Carbon Dioxide 27 (22-29) mmol/L Anion Gap 9 L (12-20) BUN 14 (9-16) mg/dL Creatinine 0.68 (0.5-1.4) mg/dL Estim Creat Clear Calc 92.7 Estimated GFR > 60 Random Glucose 106 (60-115) mg/dL Lactic Acid (0.5-2.0) mmol/L Calcium 8.4 (8.4-10.2) mg/dL Magnesium 1.9 (1.6-2.6) mg/dL Total Bilirubin 0.4 (0.0-1.0) mg/dL Direct Bilirubin < 0.2 (0.0-0.5) mg/dL AST 21 (5-31) U/L ALT 24 (0-31) U/L Alkaline Phosphatase 93 D (39-117) U/L Troponin I High Sens (<3.5-17.0) ng/L C-Reactive Protein 1.32 H (< or = 0.50) mg/dL B-Natriuretic Peptide (<100) pg/mL Total Protein 6.7 (6.5-8.0) g/dL Albumin 3.8 (3.5-5.0) g/dL Procalcitonin ng/mL Urine Color Urine Appearance Urine pH (5.0-8.0) Ur Specific [place] (1.005-1.025) Urine Protein (NEG-TRACE) MG/DL Urine Glucose (UA) (NEG) MG/DL Urine Ketones (NEG) MG/DL Urine Blood (NEG) Urine Nitrite (NEG) Ur Leukocyte Esterase (NEG) Influenza Type A (PCR) NEGATIVE (Negative) Influenza Type B (PCR) NEGATIVE (Negative) RSV RNA Qual (PCR) NEGATIVE (Negative) SARS-CoV-2 RNA (RT-PCR) POSITIVE A (Negative) 08/27/21 Range/Units 14:08 WBC (4.8-10.8) X10*3/uL RBC (4.20-5.50) X10*6/uL Hgb (12.0-16.0) g/dl Hct (37.0-47.0) % MCV (80.0-98.0) fL MCH (27.0-33.0) pg MCHC (31.0-35.0) g/dl RDW (11.0-16.0) % Plt Count (160-400) X10*3/uL MPV (9.4-12.3) fL Immature Gran % (Auto) (0.0-0.4) % Neut % (Auto) (45-73) % Lymph % (Auto) (20-40) % [place] % (Auto) (2-11) % Eos % (Auto) (0-4) % Baso % (Auto) (0-2) % Lymph # (Auto) (1.2-4.9) X10*3/uL [place] # (Auto) (0.1-1.2) X10*3/uL Eos # (Auto) (0.0-0.4) X10*3/uL Baso # (Auto) (0.0-0.2) X10*3/uL Abs Immat Gran (auto) (0.00-0.03) X10*3/uL Absolute Neuts (auto) (2.0-8.3) x10*3/uL Absolute Nucleated RBC (0.0-0.012) X10*3/uL Nucleated RBC % (auto) (0.0-0.2) /100WBC Sodium (135-145) mmol/L Potassium (3.3-5.1) mmol/L Chloride (96-108) mmol/L Carbon Dioxide (22-29) mmol/L Anion Gap (12-20) BUN (9-16) mg/dL Creatinine (0.5-1.4) mg/dL Estim Creat Clear Calc Estimated GFR Random Glucose (60-115) mg/dL Lactic Acid (0.5-2.0) mmol/L Calcium (8.4-10.2) mg/dL Magnesium (1.6-2.6) mg/dL Total Bilirubin (0.0-1.0) mg/dL Direct Bilirubin (0.0-0.5) mg/dL AST (5-31) U/L ALT (0-31) U/L Alkaline Phosphatase (39-117) U/L Troponin I High Sens (<3.5-17.0) ng/L C-Reactive Protein (< or = 0.50) mg/dL B-Natriuretic Peptide (<100) pg/mL Total Protein (6.5-8.0) g/dL Albumin (3.5-5.0) g/dL Procalcitonin ng/mL Urine Color YELLOW Urine Appearance HAZY Urine pH 6.0 (5.0-8.0) Ur Specific [place] 1.010 (1.005-1.025) Urine Protein NEG (NEG-TRACE) MG/DL Urine Glucose (UA) NEG (NEG) MG/DL Urine Ketones NEG (NEG) MG/DL Urine Blood TRACE (NEG) Urine Nitrite NEG (NEG) Ur Leukocyte Esterase 1+ H (NEG) Influenza Type A (PCR) (Negative) Influenza Type B (PCR) (Negative) RSV RNA Qual (PCR) (Negative) SARS-CoV-2 RNA (RT-PCR) (Negative) ECG Data Attestation: I personally reviewed and interpreted this ECG as follows: ECG interpretation date: 08/27/21 ECG interpretation time: 13:52 Interpretation: normal sinus rhythm, HR 75, normal SD interval, no ST segment elevations or depressions Critical Care Time Critical Care Time Critical Care Time: No Discharge Plan Discharge Clinical Impression: COVID-19 Patient Disposition: Home, Self-Care Instructions: Covid-19 Viral Syndrome and Novel Coronavirus (ED) Hey/Ath Additional Instructions: You were found to be COVID-19 POSITIVE today. Your chest x-ray did not show any pneumonia and oxygen levels were normal. Rest. Drink plenty of fluids. Take the prescribed steroids for your lungs. Your have been referred for Monoclonal Antibodies - they should contact you for an appointment for infusion Do not go out in public for the next 7 days. After 1 week you can go out in public but will need to wear a mask. Take over the counter cold/flu medications as needed for your symptoms. Take Tylenol and/or Motrin as needed for fevers and body aches. Follow up with your doctor this week. If you shortness of breath worsens , if you develop difficulty breathing or any other concerning symptom come back to the ER for further evaluation. Se encontr? que hoy es COVID-19 POSITIVO. Goel radiograf?a de t?rax no mostr? neumon?a y los niveles de ox?[place] normales. Descansar. Beber mucho l?quido. [place] los esteroides recetados para chris pulmones. Sarmiento sido derivado para anticuerpos monoclonales; deben comunicarse con usted para programar suellen divya para la infusi?n. No salgas en p?blico kaitlynn los pr?ximos 7 d?as. Despu?s de 1 semana, puede salir en p?blico, delmis deber? usar suellen m?scara. [place] medicamentos de venta anthony para el resfriado / la gripe seg?n sea necesario para chris s?ntomas. [place] Tylenol y / o Motrin seg?n sea necesario para la fiebre y los alirio corporales. Jen un seguimiento con goel m?dico esta semana. Si goel dificultad para respirar empeora, si presenta dificultad para respirar o cualquier otro s?ntoma preocupante, regrese a la mike de emergencias para suellen evaluaci?n adicional. Prescriptions: New prednisone 20 mg tablet 40 mg PO DAILY Qty: 10 RF: 0 ondansetron 4 mg tablet,disintegrating 4 mg PO Q8H PRN (Reason: nausea and vomiting) Qty: 10 RF: 0 No Action albuterol sulfate [ProAir HFA] 90 mcg/actuation Hfa Aerosol Inhaler 2 puff INHALATION Q6H PRN (Reason: Shortness Of Breath) RF: 0 prednisone 20 mg tablet 40 mg PO DAILY Qty: 6 RF: 0 ciprofloxacin HCl 500 mg tablet 500 mg PO Q12H 7 Days Qty: 14 RF: 0 metronidazole 500 mg tablet 500 mg PO Q12H 7 Days Qty: 14 RF: 0 [place] 200-25-25 mg tablet 1 tab PO DAILY RF: 0 ibuprofen 600 mg tablet 600 mg PO TID RF: 0 Flovent HFA 220 mcg/actuation HFA aerosol inhaler 1 puff inhalation BID RF: 0 tamoxifen 20 mg tablet 20 mg PO DAILY RF: 0 tramadol 50 mg tablet 50 mg PO DAILY RF: 0
[2021-08-27 12:21] VITALS: PULSE 77; RESP 18; O2SAT 98
[2021-08-27] MEDS: Albuterol Sulfate 90 MCG 8 GM INHALER 2 PUFF INHALE (12:21)
[2021-08-27 12:31] LABS: MANUAL DIFF FLAG NO
[2021-08-27 12:32] LABS: Basophils Percent Auto 0.2 % (0-2); Eosinophils Absolute Auto 0.1 X10*3/uL (0.0-0.4); Eosinophils Percent Auto 1.5 % (0-4); Hematocrit 37.3 % (37.0-47.0); Hemoglobin 12.1 g/dl (12.0-16.0); Imm Gran Abs Auto 0.01 X10*3/uL (0.00-0.03); Imm Gran Pct Auto 0.2 % (0.0-0.4); Lymphocytes Absolute Auto 1.9 X10*3/uL (1.2-4.9); Lymphocytes Percent Auto 29.6 % (20-40); Mean Corpuscular HGB Conc 32.4 g/dl (31.0-35.0); Mean Corpuscular Volume 86.3 fL (80.0-98.0); Monocytes Absolute Auto 0.5 X10*3/uL (0.1-1.2); Monocytes Percent Auto 7.9 % (2-11); Neutrophils Absolute Auto 3.9 x10*3/uL (2.0-8.3); Neutrophils Percent Auto 60.6 % (45-73); Platelet Count 237 X10*3/uL (160-400); Red Blood Count 4.32 X10*6/uL (4.20-5.50); Red Cell Distribution Width 11.9 % (11.0-16.0); White Blood Count 6.5 X10*3/uL (4.8-10.8)
[2021-08-27] MEDS: methylPREDNISolone Sod Succ 125 MG/2 ML VIAL 80 MG IVPUSH (12:32)
[2021-08-27] MEDS: ondansetron HCL 4 MG/2 ML VIAL IVPUSH (12:32)
[2021-08-27] MEDS: 0.9 % Sodium Chloride 1,000 ML 999 ML IVCONT (12:32)
[2021-08-27 12:43] LABS: Lactic Acid 0.9 mmol/L (0.5-2.0)
[2021-08-27 12:49] LABS: Alanine Aminotransferase 24 U/L (0-31); Albumin Level 3.8 g/dL (3.5-5.0); Alkaline Phosphatase 93 U/L (39-117); Anion Gap 9 (12-20); Aspartate Amino Transferase 21 U/L (5-31); Bilirubin Direct < 0.2 mg/dL (0.0-0.5); Bilirubin Total 0.4 mg/dL (0.0-1.0); Blood Urea Nitrogen 14 mg/dL (9-16); C Reactive Protein 1.32 mg/dL (< or = 0.50); Calcium 8.4 mg/dL (8.4-10.2); Carbon Dioxide 27 mmol/L (22-29); Chloride 106 mmol/L (96-108); Creatinine Clr Calc Pharmacy 92.7; Estimated Glomerular Filt Rate > 60; Glucose Random 106 mg/dL (60-115); Magnesium 1.9 mg/dL (1.6-2.6); Potassium 3.2 mmol/L (3.3-5.1); Sodium 139 mmol/L (135-145); Total Protein 6.7 g/dL (6.5-8.0)
[2021-08-27 12:53] LABS: B Type Natriuretic Peptide 22 pg/mL (<100); Troponin-I High Sensitivity 4.7 ng/L (<3.5-17.0)
[2021-08-27 13:05] LABS: Procalcitonin 0.02 ng/mL
[2021-08-27 13:14] LABS: Influenza A PCR NEGATIVE (Negative); Influenza B PCR NEGATIVE (Negative); Resp Syncy Virus RNA Qual PCR NEGATIVE (Negative); SARS COV2 PCR INHOUSE POSITIVE (Negative)
[2021-08-27 14:06] VITALS: PULSE 75; RESP 19; O2SAT 99
[2021-08-27] MEDS: Potassium Chloride ER 20 MEQ TAB.ER.PRT 40 MEQ PO (14:12)
[2021-08-27 14:13] LABS: Color Urine YELLOW; Glucose Urine UA NEG (NEG); Leukocyte Esterase Urine 1+ (NEG); Nitrite Urine NEG (NEG); UACC Culture Trigger YES; Urine Blood TRACE (NEG); Urine Ketones NEG (NEG); Urine Protein NEG (NEG-TRACE)
[2021-08-27 14:14] LABS: Appearance Urine HAZY
[2021-08-27 14:33] LABS: Mucus Urine TRACE /LPF; Squamous Epithelial Cell Urine TRACE /LPF
== END 2021-08-27 14:59 | disposition home or self-care (01) ==
PROVIDERS: Physician Assistant; Emergency Provider Emergency Medicine
DX: U07.1 COVID-19 (principal); R06.02 Shortness of breath; I10 Essential (primary) hypertension; J45.909 Unspecified asthma, uncomplicated; B20 Human immunodeficiency virus [HIV] disease
CPT/HCPCS: 0241U; 36415; 71045; 80048; 80076; 81001; 83605; 83735; 83880; 84145; 84484; 85025; 86140; 87040; 87086; 93005; 94640; 96361; 96374; 96375; 99284; J2405; J2930

== ENCOUNTER → 2021-09-29 13:45 | Outpatient (BNV) | payer MEDICAID, SELFPAY | PROVIDERS: PCP Family Medicine; Visit Provider Internal Medicine Medical Oncology | DX: M85.80 Other specified disorders of bone density and structure, unspecified site (principal); Z86.000 Personal history of in-situ neoplasm of breast | CPT/HCPCS: 99213 ==

== ENCOUNTER 2021-09-30 13:06 | Outpatient (REF) | payer MEDICAID, SELFPAY ==
--- NOTE | ~2021-09-30 | XR_ITS ---
EXAMINATION: XR SHOULDER, LEFT CLINICAL INFORMATION: Pain in the left shoulder. COMPARISON: 06/16/2020 TECHNIQUE: AP external rotation, Grashey, scapular Y, and axillary views of the left shoulder. FINDINGS: Once again sclerotic change at the insertion of the superior rotator cuff. There is mild degeneration at the AC joint and mild acromial spurring. There is no evidence for an acute fracture or dislocation. The glenohumeral articulation is grossly within normal limits. XR/XR shoulder LT min 2V IMPRESSION: Mild degenerative changes. If further evaluation is warranted consider MRI.
== END 2021-09-30 13:07 | disposition home or self-care (01) ==
LOC: HO.XRAY 13:06
PROVIDERS: PCP Family Medicine; Visit Provider Family Medicine
DX: M25.512 Pain in left shoulder (principal)
CPT/HCPCS: 73030

== ENCOUNTER → 2021-11-11 09:24 | Outpatient (BNVA) | payer MEDICAID, SELFPAY | PROVIDERS: PCP Family Medicine; Visit Provider Physician Assistant | DX: M75.102 Unspecified rotator cuff tear or rupture of left shoulder, not specified as traumatic (principal) | CPT/HCPCS: 99212; J1040 ==

== ENCOUNTER 2021-12-03 06:50 | Outpatient (REF) | payer MEDICAID, SELFPAY ==
--- NOTE | ~2021-12-03 | XR_ITS ---
EXAMINATION: XR KNEE, BILATERAL XR KNEE, RIGHT CLINICAL INFORMATION: Knee pain. COMPARISON: None TECHNIQUE: AP bilateral knee standing. Right knee 2 views. FINDINGS: AP BILATERAL KNEE: There is severe loss of medial compartment joint space both knees with periarticular spurring in the medial and lateral compartment. No bony erosive changes. No visible acute fracture or dislocation seen. There is genu varus deformity of both knees. No bony erosive changes seen. There is no fracture. RIGHT KNEE: There is a severe loss of patellofemoral compartment joint space with periapical spurring. No visible acute fracture, dislocation or bony erosive changes. XR/XR knee standing BI IMPRESSION: Severe loss of medial and patellofemoral compartment and mild lateral compartment joint space with periarticular spurring of the tricompartments. No abnormal joint effusion seen. There is no acute fracture or dislocation.
--- NOTE | ~2021-12-03 | XR_ITS ---
EXAMINATION: XR KNEE, BILATERAL XR KNEE, RIGHT CLINICAL INFORMATION: Knee pain. COMPARISON: None TECHNIQUE: AP bilateral knee standing. Right knee 2 views. FINDINGS: AP BILATERAL KNEE: There is severe loss of medial compartment joint space both knees with periarticular spurring in the medial and lateral compartment. No bony erosive changes. No visible acute fracture or dislocation seen. There is genu varus deformity of both knees. No bony erosive changes seen. There is no fracture. RIGHT KNEE: There is a severe loss of patellofemoral compartment joint space with periapical spurring. No visible acute fracture, dislocation or bony erosive changes. XR/XR knee RT 2V IMPRESSION: Severe loss of medial and patellofemoral compartment and mild lateral compartment joint space with periarticular spurring of the tricompartments. No abnormal joint effusion seen. There is no acute fracture or dislocation.
== END 2021-12-03 06:51 | disposition home or self-care (01) ==
LOC: HO.HOSX 06:50
PROVIDERS: Visit Provider Physician Assistant
DX: M17.11 Unilateral primary osteoarthritis, right knee (principal)
CPT/HCPCS: 20610; 73560; 73565; 99212; J1040

== ENCOUNTER 2022-01-31 07:53 | Emergency (ER) | payer MEDICAID, SELFPAY ==
[2022-01-31] VITALS (9 sets, daily range): BP systolic 137–160; BP diastolic 54–85; PULSE 76–98; RESP 14–26; TEMP 36.7–37.1; O2SAT 93–100; BMI 33.7
--- NOTE | ~2022-01-31 | XR_ITS ---
EXAMINATION: XR CHEST CLINICAL INFORMATION: SOB. COMPARISON: None TECHNIQUE: 2 views of the chest were obtained. FINDINGS: [The lungs are well-expanded and clear acute pneumonic consolidation. The heart size is normal. There is increased vascularity. No gross bony abnormality. XR/XR chest 2V IMPRESSION: Unremarkable chest exam.
--- NOTE | 2022-01-31 08:31 | ED.GENADULT ---
HPI - General Adult General Chief complaint: Upper Respiratory Symptoms Stated complaint: COUGH,COLD,CONGESTION X'S 3 DAYS Time Seen by Provider: 01/31/22 08:31 Source: patient, EMS and payment specialist Mode of arrival: EMS Limitations: language barrier History of Present Illness HPI narrative: Patient is a 61 year old female presenting to the emergency department today with nausea, headache, body aches, and a cough. Patient states that she hasn't been feeling well the last few days and last night she began to have a cough, headache, body aches, and nausea. Patient states that she did have 1 episode of vomiting this morning. Patient denies any dizziness, lightheadedness, abdominal pain, fever, chills, blurry vision, double vision, loss of vision, chest pain, difficulty breathing, shortness of breath, back pain, night sweats, pain with urination, increased urinary frequency, increased urinary urgency, blood in her urine or stool, syncope or a near syncopal episode, recent trauma or falls, bowel incontinence, bladder incontinence, bowel retention, bladder retention, or any other complaints at this time. Patient states denies any history of diabetes, asthma, COPD, CAD, or CHF. Patient states that she has a history of breast cancer. Onset (ago): day(s) Severity: mild Severity scale (1-10): 3 Quality: dull Pain Consistency: constant Relieving factors: none Exacerbating factors: none Associated symptoms: cough and nausea/vomiting Treatments prior to arrival: none Related Data Home Medications Medication Instructions Recorded Confirmed emtricitabine 200 mg-rilpivirine 1 tab PO DAILY 06/16/20 09/29/21 25 mg-tenofovir alafenam 25 mg tablet (Isa) fluticasone propionate 220 1 puff INHALATION BID 06/16/20 09/29/21 mcg/actuation HFA aerosol inhaler (Flovent HFA) ibuprofen 600 mg tablet 600 mg PO TID 06/16/20 09/29/21 tramadol 50 mg tablet 50 mg PO DAILY 06/16/20 09/29/21 albuterol sulfate 90 mcg/actuation 2 puff INHALATION Q6H PRN 07/22/20 09/29/21 aerosol inhaler (ProAir HFA) ciprofloxacin HCl 500 mg tablet 500 mg PO Q12H 09/29/21 09/29/21 (Cipro) melatonin 5 mg tablet 1 tab PO BEDTIME PRN 09/29/21 09/29/21 Previous Rx's Medication Instructions Recorded metronidazole 500 mg tablet 500 mg PO Q12H 7 Days #14 tab 04/13/21 ondansetron 4 mg disintegrating 4 mg PO Q8H PRN #10 tab 08/27/21 tablet prednisone 20 mg tablet 40 mg PO DAILY #10 tab 08/27/21 albuterol sulfate 90 mcg/actuation 1 inh INHALATION QID PRN #8.5 g 01/31/22 aerosol inhaler prednisone 20 mg tablet 20 mg PO DAILY 12 Days #26 tab 01/31/22 Allergies Allergy/AdvReac Type Severity Reaction Status Date / Time adhesive tape [ADHESIVE TAPE] Allergy Intermediate RASH Verified 12/03/21 09:51 dolutegravir Allergy Unknown rash Verified 12/03/21 09:51 Review of Systems Constitutional: Constitutional: Reports no additional constitutional complaints, Denies chills, Denies fever(s), Reports headache(s) and Denies night sweats Eyes: Eyes: Reports no additional eye complaints, Denies blurry vision, Denies change in vision, Denies diplopia, Denies eye discharge, Denies loss of vision and Denies eye pain ENT: Denies dizziness and Reports headache(s) Cardiovascular: Cardiovascular: Reports no additional cardiovascular complaints, Denies chest pain, Denies lightheadedness, Denies Loss of Consciousness and Denies dyspnea Respiratory: Respiratory: Reports no additional respiratory complaints, Reports cough and Denies dyspnea Gastrointestinal: Gastrointestinal: Reports no additional gastrointestinal complaints, Denies abdominal pain, Denies melena, Denies hematochezia, Denies change in bowel habits, Denies change in stool character, Reports nausea and Reports vomiting Genitourinary: Genitourinary: Denies hematuria, Denies urinary frequency, Denies dysuria, Denies urinary incontinence, Denies urinary hesitancy and Denies urinary urgency Musculoskeletal: Musculoskeletal: Reports no additional musculoskeletal complaints, Reports myalgias, Denies numbness and Denies tingling Neurologic: Denies dizziness, Reports headache(s), Denies loss of vision, Denies numbness and Denies tingling Psychiatric: Psychiatric: Reports no additional psychiatric complaints Endocrine: Endocrine: Reports no additional endocrine complaints Hematologic/Lymphatic: Hematologic/Lymphatic: Reports no additional hematologic/lymphatic complaints Allergic/Immunologic: Allergic/Immunologic: Reports no additional allergic/immunologic complaints [facility] Past Medical History Attestation statement: The following information was validated with the patient. Source: old records reviewed Medical History Asthma Deafness History of breast cancer HIV (human immunodeficiency virus infection) Primary osteoarthritis of left knee Primary osteoarthritis of right knee Right knee pain Surgical History History of tubal ligation Status post right breast lumpectomy Social History Social History Household Members: None Housing: Apartment Are you a primary care manager to a significant other at home: No Do you presently have visiting nurse or other home services: Yes Alcohol intake: unknown Patient Tobacco Use Status: Never used Tobacco Advance Directives: No Advance Directives Information Provided: No service: No Current occupational status: disabled Current occupation: Right Handed Physical Exam ED Vital Signs: Vital Signs - 24 hr 01/31/22 08:00 01/31/22 08:45 01/31/22 09:39 Temperature 98.7 F 98.7 F Pulse Rate 94 98 88 Respiratory Rate 24 H 26 H 25 H Blood Pressure 146/70 H 159/54 H Pulse Oximetry 98 98 01/31/22 11:01 01/31/22 13:38 01/31/22 14:46 Temperature Pulse Rate 81 82 76 Respiratory Rate 14 18 14 Blood Pressure 160/85 H 137/80 138/71 Pulse Oximetry 100 97 96 01/31/22 14:53 Temperature Pulse Rate Respiratory Rate Blood Pressure Pulse Oximetry 98 BMI result Body Mass Index 33.7 Const General: cooperative, no acute distress, alert and awake Nutritional Appearance: well nourished Orientation/consciousness: patient oriented x3 Limitations: no limitations HENWI Head: Yes normal to inspection and Yes atraumatic Ears: hearing grossly normal bilaterally and external ears normal General nose exam: Normal external nose present, no nasal discharge noted and no epistaxis Face and sinus: Yes normal facial exam, No abrasion and No laceration Mouth: Normal oral and palatal mucosa present, no drooling and no muffled voice Eyes General: appearance normal, both eyes and all related structures Periorbital: periorbital findings normal Eyelids: Yes eyelids normal Conjunctivae: conjunctivae normal Pupils: Equal, round and reactive pupils present EOM: EOMs intact bilaterally Neck Neck: Yes normal visual inspection, Yes full ROM and Yes no lymphadenopathy Chest Chest palpation & inspection: normal inspection of the chest Resp Effort & Inspection: normal respiratory effort and able to speak in complete sentences Auscultation: rhonchi throughout Cardio Rate: regular rate Rhythm: regular rhythm GI Inspection: Yes normal to inspection Palpation (GI): Soft to palpation, not firm, nontender, no guarding and not rigid Neuro General: patient oriented x3 and moves all extremities Cranial nerves: Yes Equal, round and reactive pupils present Cognition (Neuro): normal cognition Motor exam (neuro): 5/5 motor strength present throughout Sensory Exam: Normal double simultaneous stimulation for sensation Coordination: [id number] test normal Extrem General: Yes normal to inspection, Yes full ROM and Yes capillary refill normal Psych Appearance: grossly normal Mental Status: mental status grossly normal Affect: normal affect Attitude: cooperative Thought process: Normal thought process present Thought content: Normal thought content present Insight: Good insight present (Psych) Medical Decision Making [facility] Narrative Medical decision making narrative: Patient is a 61 year old female presenting to the emergency department today with a cough, nausea, and vomiting. Patient's physical exam showed rhonci throughout but was otherwise unremarkable. Patient's oxygen saturation never dropped below 94%, even when ambulating. Patient's lab work showed a positive human metapneumovirus infection. Patient's EKG was unremarkable. Patient's chest x-ray showed no acute process. I explained my physical exam findings as well as all test results to the patient. I answered all questions asked by the patient. Patient received a duoneb and IM Decadron which she stated helped her symptoms significantly. I stressed the importance of the patient taking her medication as prescribed. I stressed the importance of the patient following up with her primary care provider. I stressed the importance of the patient returning to the emergency department immediately if her symptoms were to worsen or if she were to develop any dizziness, shortness of breath, difficulty breathing, chest pain, blurry vision, loss of vision, nausea, vomiting, abdominal pain, fever, chills, back pain, or any other complaints. Patient verbalized agreement and understanding with this treatment plan and discharge. Differential Diagnosis Differential Diagnosis: viral infection, respiratory infection, cough Medical Records Medical records reviewed: Yes I reviewed the patient's medical records. Lab Data Lab results reviewed: Yes I reviewed the patient's lab results. Result diagrams: 01/31/22 09:17 01/31/22 09:17 Labs: Lab Results 01/31/22 01/31/22 01/31/22 Range/Units 09:12 09:12 09:17 WBC 6.4 (4.8-10.8) X10*3/uL RBC 4.65 (4.20-5.50) X10*6/uL Hgb 13.2 (12.0-16.0) g/dl Hct 41.6 (37.0-47.0) % MCV 89.5 (80.0-98.0) fL MCH 28.4 (27.0-33.0) pg MCHC 31.7 (31.0-35.0) g/dl RDW 12.9 (11.0-16.0) % Plt Count 224 (160-400) X10*3/uL MPV 8.8 L (9.4-12.3) fL Immature Gran % (Auto) 0.3 (0.0-0.4) % Neut % (Auto) 58.0 (45-73) % Lymph % (Auto) 30.0 (20-40) % [place] % (Auto) 9.5 (2-11) % Eos % (Auto) 2.0 (0-4) % Baso % (Auto) 0.2 (0-2) % Lymph # (Auto) 1.9 (1.2-4.9) X10*3/uL [place] # (Auto) 0.6 (0.1-1.2) X10*3/uL Eos # (Auto) 0.1 (0.0-0.4) X10*3/uL Baso # (Auto) 0.0 (0.0-0.2) X10*3/uL Abs Immat Gran (auto) 0.02 (0.00-0.03) X10*3/uL Absolute Neuts (auto) 3.7 (2.0-8.3) x10*3/uL Absolute Nucleated RBC 0.000 (0.0-0.012) X10*3/uL Nucleated RBC % (auto) 0.0 (0.0-0.2) /100WBC D-Dimer High Sensitivty NG/ML VBG pH (7.32-7.43) VBG pCO2 mmHg VBG pO2 mmHg VBG HCO3 (22-26) mmol/L VBG O2 Saturation % VBG Base Excess mmol/L Sodium (135-145) mmol/L Potassium (3.3-5.1) mmol/L Chloride (96-108) mmol/L Carbon Dioxide (22-29) mmol/L Anion Gap (12-20) BUN (9-16) mg/dL Creatinine (0.5-1.4) mg/dL Estim Creat Clear Calc Estimated GFR Random Glucose (60-115) mg/dL Lactic Acid (0.5-2.0) mmol/L Calcium (8.4-10.2) mg/dL Magnesium (1.6-2.6) mg/dL Total Bilirubin (0.0-1.0) mg/dL AST (5-31) U/L ALT (0-31) U/L Alkaline Phosphatase (39-117) U/L Troponin I High Sens (<3.5-17.0) ng/L B-Natriuretic Peptide (<100) pg/mL Total Protein (6.5-8.0) g/dL Albumin (3.5-5.0) g/dL Respiratory Panel Jasmine Adenovirus (Rapid PCR) (Not Detect.) B.pert (TEM-PCR) (Not Detect.) B.parapertussis DNA PCR (Not Detect.) C. pneumoniae DNA (PCR) (Not Detect.) Coronavirus OC43 (PCR) (Not Detect.) Coronavirus HKU1 (PCR) (Not Detect.) Coronavirus 229E (PCR) (Not Detect.) COVID-19 (ISABEL) Negative (Negative) COVID-19 Clin Com See Note Coronavirus NL63 (PCR) (Not Detect.) Human Metapneumovir PCR (Not Detect.) Influenza Type A (RODGER) Negative (Negative) Influenza A (RT-PCR) (Not Detect.) Influenza Type B (RODGER) Negative (Negative) Influenza B (RT-PCR) (Not Detect.) Influenza A & B Note See Note M. pneumoniae (PCR) (Not Detect.) Parainfluenza 1 (PCR) (Not Detect.) Parainfluenza 2 (PCR) (Not Detect.) Parainfluenza 3 (PCR) (Not Detect.) Parainfluenza 4 (PCR) (Not Detect.) RSV (PCR) (Not Detect.) Entero/Rhino (PCR) (Not Detect.) SARS-CoV-2 RNA (RT-PCR) (Not Detect.) 01/31/22 01/31/22 01/31/22 Range/Units 09:17 09:17 09:17 WBC (4.8-10.8) X10*3/uL RBC (4.20-5.50) X10*6/uL Hgb (12.0-16.0) g/dl Hct (37.0-47.0) % MCV (80.0-98.0) fL MCH (27.0-33.0) pg MCHC (31.0-35.0) g/dl RDW (11.0-16.0) % Plt Count (160-400) X10*3/uL MPV (9.4-12.3) fL Immature Gran % (Auto) (0.0-0.4) % Neut % (Auto) (45-73) % Lymph % (Auto) (20-40) % [place] % (Auto) (2-11) % Eos % (Auto) (0-4) % Baso % (Auto) (0-2) % Lymph # (Auto) (1.2-4.9) X10*3/uL [place] # (Auto) (0.1-1.2) X10*3/uL Eos # (Auto) (0.0-0.4) X10*3/uL Baso # (Auto) (0.0-0.2) X10*3/uL Abs Immat Gran (auto) (0.00-0.03) X10*3/uL Absolute Neuts (auto) (2.0-8.3) x10*3/uL Absolute Nucleated RBC (0.0-0.012) X10*3/uL Nucleated RBC % (auto) (0.0-0.2) /100WBC D-Dimer High Sensitivty NG/ML VBG pH (7.32-7.43) VBG pCO2 mmHg VBG pO2 mmHg VBG HCO3 (22-26) mmol/L VBG O2 Saturation % VBG Base Excess mmol/L Sodium 141 (135-145) mmol/L Potassium 3.6 (3.3-5.1) mmol/L Chloride 105 (96-108) mmol/L Carbon Dioxide 28 (22-29) mmol/L Anion Gap 12 (12-20) BUN 11 (9-16) mg/dL Creatinine 0.79 (0.5-1.4) mg/dL Estim Creat Clear Calc 80.8 Estimated GFR > 60 Random Glucose 121 H (60-115) mg/dL Lactic Acid 1.5 (0.5-2.0) mmol/L Calcium 8.5 (8.4-10.2) mg/dL Magnesium 2.1 (1.6-2.6) mg/dL Total Bilirubin 0.5 (0.0-1.0) mg/dL AST 24 (5-31) U/L ALT 29 (0-31) U/L Alkaline Phosphatase 88 (39-117) U/L Troponin I High Sens 4.8 (<3.5-17.0) ng/L B-Natriuretic Peptide 11 (<100) pg/mL Total Protein 7.1 (6.5-8.0) g/dL Albumin 4.2 (3.5-5.0) g/dL Respiratory Panel Jasmine Adenovirus (Rapid PCR) (Not Detect.) B.pert (TEM-PCR) (Not Detect.) B.parapertussis DNA PCR (Not Detect.) C. pneumoniae DNA (PCR) (Not Detect.) Coronavirus OC43 (PCR) (Not Detect.) Coronavirus HKU1 (PCR) (Not Detect.) Coronavirus 229E (PCR) (Not Detect.) COVID-19 (ISABEL) (Negative) COVID-19 Clin Com Coronavirus NL63 (PCR) (Not Detect.) Human Metapneumovir PCR (Not Detect.) Influenza Type A (RODGER) (Negative) Influenza A (RT-PCR) (Not Detect.) Influenza Type B (RODGER) (Negative) Influenza B (RT-PCR) (Not Detect.) Influenza A & B Note M. pneumoniae (PCR) (Not Detect.) Parainfluenza 1 (PCR) (Not Detect.) Parainfluenza 2 (PCR) (Not Detect.) Parainfluenza 3 (PCR) (Not Detect.) Parainfluenza 4 (PCR) (Not Detect.) RSV (PCR) (Not Detect.) Entero/Rhino (PCR) (Not Detect.) SARS-CoV-2 RNA (RT-PCR) (Not Detect.) 01/31/22 01/31/22 01/31/22 Range/Units 10:43 10:45 13:15 WBC (4.8-10.8) X10*3/uL RBC (4.20-5.50) X10*6/uL Hgb (12.0-16.0) g/dl Hct (37.0-47.0) % MCV (80.0-98.0) fL MCH (27.0-33.0) pg MCHC (31.0-35.0) g/dl RDW (11.0-16.0) % Plt Count (160-400) X10*3/uL MPV (9.4-12.3) fL Immature Gran % (Auto) (0.0-0.4) % Neut % (Auto) (45-73) % Lymph % (Auto) (20-40) % [place] % (Auto) (2-11) % Eos % (Auto) (0-4) % Baso % (Auto) (0-2) % Lymph # (Auto) (1.2-4.9) X10*3/uL [place] # (Auto) (0.1-1.2) X10*3/uL Eos # (Auto) (0.0-0.4) X10*3/uL Baso # (Auto) (0.0-0.2) X10*3/uL Abs Immat Gran (auto) (0.00-0.03) X10*3/uL Absolute Neuts (auto) (2.0-8.3) x10*3/uL Absolute Nucleated RBC (0.0-0.012) X10*3/uL Nucleated RBC % (auto) (0.0-0.2) /100WBC D-Dimer High Sensitivty 172 NG/ML VBG pH 7.38 (7.32-7.43) VBG pCO2 39 mmHg VBG pO2 50 mmHg VBG HCO3 24 (22-26) mmol/L VBG O2 Saturation 78.0 % VBG Base Excess -0.9 mmol/L Sodium (135-145) mmol/L Potassium (3.3-5.1) mmol/L Chloride (96-108) mmol/L Carbon Dioxide (22-29) mmol/L Anion Gap (12-20) BUN (9-16) mg/dL Creatinine (0.5-1.4) mg/dL Estim Creat Clear Calc Estimated GFR Random Glucose (60-115) mg/dL Lactic Acid (0.5-2.0) mmol/L Calcium (8.4-10.2) mg/dL Magnesium (1.6-2.6) mg/dL Total Bilirubin (0.0-1.0) mg/dL AST (5-31) U/L ALT (0-31) U/L Alkaline Phosphatase (39-117) U/L Troponin I High Sens (<3.5-17.0) ng/L B-Natriuretic Peptide (<100) pg/mL Total Protein (6.5-8.0) g/dL Albumin (3.5-5.0) g/dL Respiratory Panel Jasmine See Note Adenovirus (Rapid PCR) Not Detected (Not Detect.) B.pert (TEM-PCR) Not Detected (Not Detect.) B.parapertussis DNA PCR Not Detected (Not Detect.) C. pneumoniae DNA (PCR) Not Detected (Not Detect.) Coronavirus OC43 (PCR) Not Detected (Not Detect.) Coronavirus HKU1 (PCR) Not Detected (Not Detect.) Coronavirus 229E (PCR) Not Detected (Not Detect.) COVID-19 (ISABEL) (Negative) COVID-19 Clin Com Coronavirus NL63 (PCR) Not Detected (Not Detect.) Human Metapneumovir PCR Detected A (Not Detect.) Influenza Type A (RODGER) (Negative) Influenza A (RT-PCR) Not Detected (Not Detect.) Influenza Type B (RODGER) (Negative) Influenza B (RT-PCR) Not Detected (Not Detect.) Influenza A & B Note M. pneumoniae (PCR) Not Detected (Not Detect.) Parainfluenza 1 (PCR) Not Detected (Not Detect.) Parainfluenza 2 (PCR) Not Detected (Not Detect.) Parainfluenza 3 (PCR) Not Detected (Not Detect.) Parainfluenza 4 (PCR) Not Detected (Not Detect.) RSV (PCR) Not Detected (Not Detect.) Entero/Rhino (PCR) Not Detected (Not Detect.) SARS-CoV-2 RNA (RT-PCR) Not Detected (Not Detect.) Imaging Data Chest x-ray: Attestation: I personally reviewed and interpreted this imaging study as follows: My impression: No acute process. Radiologist's impression: EXAMINATION: XR CHEST CLINICAL INFORMATION: SOB. COMPARISON: None TECHNIQUE: 2 views of the chest were obtained. FINDINGS: [The lungs are well-expanded and clear acute pneumonic consolidation. The heart size is normal. There is increased vascularity. No gross bony abnormality. XR/XR chest 2V IMPRESSION: Unremarkable chest exam. Dictated By: De Horn MD Signed By: Electronically signed by De Horn MD 01/31/22 1052 ECG Data Attestation: I personally reviewed and interpreted this ECG as follows: Prior ECG tracings: available for review Interpretation: Vent. Rate: 082 BPM ? ? Atrial Rate: 082 BPM P-R Int: 132 ms? QRS Dur: 086 ms QT Int: 386 ms ? ? ? P-R-T Axes: 047 006 058 degrees QTc Int: 450 ms ? Normal sinus rhythm Normal ECG When compared with ECG of 27-AUG-2021 12:08, No significant change was found DD/ [id number] Discharge Plan Discharge Clinical Impression: Human metapneumovirus (hMPV) pneumonia Patient Disposition: Home, Self-Care Instructions: Viral Pneumonia (DC) Additional Instructions: Follow up with your primary care provider. Return to the emergency department immediately if your symptoms worsen or if you develop any dizziness, shortness of breath, difficulty breathing, chest pain, blurry vision, loss of vision, nausea, vomiting, abdominal pain, fever, chills, back pain, or any other complaints. Prescriptions: New prednisone 20 mg tablet 20 mg PO DAILY 12 Days Qty: 26 0RF Rx Instructions: Take 3 tablets for 5 days THEN; Take 2 tablets for 4 days THEN; Take 1 tablet for 3 days albuterol sulfate 90 mcg/actuation HFA aerosol inhaler 1 inh inhalation QID PRN (Reason: shortness of breath or wheezing) Qty: 8.5 0RF No Action albuterol sulfate [ProAir HFA] 90 mcg/actuation Hfa Aerosol Inhaler 2 puff INHALATION Q6H PRN (Reason: Shortness Of Breath) 0RF metronidazole 500 mg tablet 500 mg PO Q12H 7 Days Qty: 14 0RF prednisone 20 mg tablet 40 mg PO DAILY Qty: 10 0RF ondansetron 4 mg tablet,disintegrating 4 mg PO Q8H PRN (Reason: nausea and vomiting) Qty: 10 0RF melatonin 5 mg tablet 1 tab PO BEDTIME PRN (Reason: insomnia) 0RF ciprofloxacin HCl [Cipro] 500 mg tablet 500 mg PO Q12H 0RF [place]sey 200-25-25 mg tablet 1 tab PO DAILY 0RF Rx Instructions: must administer with a meal/food ibuprofen 600 mg tablet 600 mg PO TID 0RF Flovent HFA 220 mcg/actuation HFA aerosol inhaler 1 puff inhalation BID 0RF tramadol 50 mg tablet 50 mg PO DAILY 0RF Referrals: [facility] [Primary Care Provider] - Print Language: Kuwaiti
--- NOTE | 2022-01-31 08:33 | ECG_ITS ---
Test Reason : diff breathing Blood Pressure : / mmHG Vent. Rate : 082 BPM Atrial Rate : 082 BPM P-R Int : 132 ms QRS Dur : 086 ms QT Int : 386 ms P-R-T Axes : 047 006 058 degrees QTc Int : 450 ms Normal sinus rhythm Nonspecific ST and T wave abnormality Borderline ECG When compared with ECG of 27-AUG-2021 12:08, No significant change was found Referred By: Mary Anne Hernandez Electronically Signed By:MONI KING
[2022-01-31] MEDS: Albuterol/Iprat 2.5/0.5MG 3 ML AMPUL.NEB INHALE (08:41)
[2022-01-31 09:24] LABS: MANUAL DIFF FLAG NO
[2022-01-31 09:25] LABS: Basophils Percent Auto 0.2 % (0-2); Eosinophils Absolute Auto 0.1 X10*3/uL (0.0-0.4); Hematocrit 41.6 % (37.0-47.0); Hemoglobin 13.2 g/dl (12.0-16.0); Imm Gran Abs Auto 0.02 X10*3/uL (0.00-0.03); Imm Gran Pct Auto 0.3 % (0.0-0.4); Lymphocytes Absolute Auto 1.9 X10*3/uL (1.2-4.9); Mean Corpuscular HGB Conc 31.7 g/dl (31.0-35.0); Mean Corpuscular Hemoglobin 28.4 pg (27.0-33.0); Mean Corpuscular Volume 89.5 fL (80.0-98.0); Mean Platelet Volume 8.8 fL (9.4-12.3); Monocytes Absolute Auto 0.6 X10*3/uL (0.1-1.2); Monocytes Percent Auto 9.5 % (2-11); Neutrophils Absolute Auto 3.7 x10*3/uL (2.0-8.3); Platelet Count 224 X10*3/uL (160-400); Red Blood Count 4.65 X10*6/uL (4.20-5.50); Red Cell Distribution Width 12.9 % (11.0-16.0); White Blood Count 6.4 X10*3/uL (4.8-10.8)
[2022-01-31 09:35] LABS: Lactic Acid 1.5 mmol/L (0.5-2.0)
[2022-01-31 09:40] LABS: Alanine Aminotransferase 29 U/L (0-31); Albumin Level 4.2 g/dL (3.5-5.0); Alkaline Phosphatase 88 U/L (39-117); Anion Gap 12 (12-20); Aspartate Amino Transferase 24 U/L (5-31); Bilirubin Total 0.5 mg/dL (0.0-1.0); Blood Urea Nitrogen 11 mg/dL (9-16); Calcium 8.5 mg/dL (8.4-10.2); Carbon Dioxide 28 mmol/L (22-29); Chloride 105 mmol/L (96-108); Creatinine Clr Calc Pharmacy 80.8; Estimated Glomerular Filt Rate > 60; Glucose Random 121 mg/dL (60-115); Magnesium 2.1 mg/dL (1.6-2.6); Potassium 3.6 mmol/L (3.3-5.1); Sodium 141 mmol/L (135-145); Total Protein 7.1 g/dL (6.5-8.0)
[2022-01-31 09:41] LABS: COVID-19 Test Negative (Negative); IDNOW Serial# 16C4AD1C; Influenza A Negative (Negative); Influenza B2 Negative (Negative)
[2022-01-31 09:46] LABS: B Type Natriuretic Peptide 11 pg/mL (<100); Troponin-I High Sensitivity 4.8 ng/L (<3.5-17.0)
[2022-01-31 10:51] LABS: Venous Blood Gas Refer to POC result
[2022-01-31 10:52] LABS: VBG Base Excess -0.9 mmol/L; VBG HCO3 24 mmol/L (22-26); VBG pCO2 39 mmHg; VBG pH 7.38 (7.32-7.43); VBG pO2 50 mmHg
[2022-01-31 11:02] LABS: D Dimer High Sensitivity 172 NG/ML
[2022-01-31] MEDS: ondansetron HCL 4 MG/2 ML VIAL IVPUSH (11:15)
[2022-01-31] MEDS: Ketorolac Tromethamine 15 MG/ML VIAL IVPUSH (11:17)
[2022-01-31] MEDS: dexAMETHasone sod phosphate 10 MG/ML VIAL IM (11:18)
[2022-01-31 15:00] LABS: Adenovirus PCR Not Detected (Not Detect.); Bordetella parapertussis PCR Not Detected (Not Detect.); Bordetella pertussis PCR Not Detected (Not Detect.); Chlamydia pneumoniae PCR Not Detected (Not Detect.); Coronavirus 229E PCR Not Detected (Not Detect.); Coronavirus HKU1 PCR Not Detected (Not Detect.); Coronavirus NL63 PCR Not Detected (Not Detect.); Coronavirus OC43 PCR Not Detected (Not Detect.); Human metapneumovirus PCR Detected (Not Detect.); Influenza A PCR Not Detected (Not Detect.); Influenza B PCR Not Detected (Not Detect.); Mycoplasma pneumoniae PCR Not Detected (Not Detect.); Parainfluenza 1 PCR Not Detected (Not Detect.); Parainfluenza 2 PCR Not Detected (Not Detect.); Parainfluenza 3 PCR Not Detected (Not Detect.); Parainfluenza 4 PCR Not Detected (Not Detect.); RSV PCR Not Detected (Not Detect.); Rhino/Enterovirus PCR Not Detected (Not Detect.); SARS-CoV-2 PCR Not Detected (Not Detect.)
== END 2022-01-31 19:56 | disposition home or self-care (01) ==
PROVIDERS: Physician Assistant Medical; Emergency Provider Student in an Organized Health Care Education/Training Program
DX: R51.9 Headache, unspecified (principal); R11.2 Nausea with vomiting, unspecified; B97.81 Human metapneumovirus as the cause of diseases classified elsewhere; Z20.822 Contact with and (suspected) exposure to COVID-19; B20 Human immunodeficiency virus [HIV] disease
CPT/HCPCS: 36415; 71046; 80053; 82803; 83605; 83735; 83880; 84484; 85025; 85379; 87040; 87502; 87633; 87635; 93005; 94640; 96372; 96374; 96375; 99285; J1100; J1885; J2405

== ENCOUNTER 2022-02-17 10:53 | Outpatient (REF) | payer MEDICAID, SELFPAY | END 2022-02-17 10:54 | disposition home or self-care (01) | LOC: HO.HAP 10:53 | PROVIDERS: PCP Family Medicine; Visit Provider Family Medicine | DX: Z46.1 Encounter for fitting and adjustment of hearing aid (principal); H90.3 Sensorineural hearing loss, bilateral | CPT/HCPCS: 92592; V5266 ==

== ENCOUNTER 2022-08-12 12:15 | Outpatient (REF) | payer MEDICAID, SELFPAY | END 2022-08-12 12:16 | disposition home or self-care (01) | LOC: HO.HAP 12:15 | PROVIDERS: Visit Provider Family Medicine | DX: Z46.1 Encounter for fitting and adjustment of hearing aid (principal); H90.3 Sensorineural hearing loss, bilateral | CPT/HCPCS: V5266 ==

== ENCOUNTER 2022-08-29 11:03 | Emergency (ER) | payer MEDICAID, SELFPAY ==
--- NOTE | ~2022-08-29 | XR_ITS ---
EXAMINATION:XR ankle RT min 3V CLINICAL INFORMATION: Reason for Exam RIGHT LEG PAIN/SWELLING COMPARISON: None TECHNIQUE: AP, lateral, and mortise views of the ankle. FINDINGS: There is soft tissue swelling lateral malleolus. There is no fracture or dislocation. Ankle mortise is preserved. Tibial plafond and talar dome are intact. Medial and lateral malleoli are properly aligned. Subtalar joint is normal. There is no osteolytic or osteoblastic lesions. There is small posterior and inferior calcaneal spurs. XR/XR ankle RT min 3V IMPRESSION: * No fracture. * Small posterior and inferior calcaneal spurs. * Soft tissue swelling around lateral malleolus.
--- NOTE | ~2022-08-29 | US_ITS ---
EXAMINATION: US VENOUS ULTRASOUND WITH DOPPLER LOWER EXTREMITY, RIGHT CLINICAL INFORMATION: Right leg pain and swelling COMPARISON: Right lower extremity duplex on 04/07/2017 TECHNIQUE: Ultrasound of the deep veins is performed from the hip to the calf with compression sonography and color and pulse Doppler assessment. Spectral analysis with color-flow imaging is performed. FINDINGS: There is normal venous compression and respiratory variation and augmented flow. The visualized common femoral vein, superficial femoral vein, profunda femoral vein, popliteal vein, and the trifurcation region shows no evidence of deep venous thrombosis. There is a 3.5 x 1.0 x 1.3 cm complex fluid collection in the popliteal fossa. If the patient's symptoms persist, followup ultrasound in 5 days 7 days might be of value to exclude proximal propagation from a non-visualized calf vein. US/US venous duplex LE RT IMPRESSION: No DVT demonstrated in the right lower extremity. 3.5 cm Miramontes's cyst.
--- NOTE | ~2022-08-29 | US_ITS ---
EXAMINATION: US ABDOMEN COMPLETE CLINICAL INFORMATION: Abdominal pain. COMPARISON: CT scan from March 2021 TECHNIQUE: Real-time imaging of the abdominal viscera. FINDINGS: PANCREAS: The visualized portion of the pancreas head and body are normal, portion of the pancreatic body and tail, not visualized are obscured by bowel gas. ABDOMINAL AORTA: The proximal, mid, and distal segments are normal in caliber. INFERIOR VENA CAVA: Visualized portions are normal. LIVER: Mildly enlarged 18.2 cm. Mildly dilated intrahepatic biliary ducts. The liver contour is normal. Parenchymal echogenicity is normal. No focal hepatic lesion. GALLBLADDER: Normal. The gallbladder is physiologically distended without evidence of stones, sludge, polyps, wall thickening or pericholecystic fluid. COMMON BILE DUCT: Normal in caliber measuring 0.3 cm in diameter. RIGHT KIDNEY: Normal. No hydronephrosis. No renal calculi or focal parenchymal lesions. The kidney measures 11.3 cm in maximum dimension. LEFT KIDNEY: Normal. No hydronephrosis. No renal calculi or focal parenchymal lesions. The kidney measures 12 cm in maximum dimension. SPLEEN: Normal. The spleen measures 7.6 cm in maximum dimension. FREE FLUID: None. US/US abdomen complete IMPRESSION: * Mildly enlarged liver 18.2 cm. * Mildly dilated intrahepatic biliary ducts. Common bile duct is normal in diameter 3 mm. * Exam otherwise normal. No ultrasound evidence of gallbladder disease or gallstones. No ultrasound explanation for patient's pain symptoms. If there is high index of suspicion for possible choledocholithiasis, consider correlation with follow-up CT scan or MRI with IV contrast, if not performed would recommend follow-up ultrasound in 6 months.
--- NOTE | ~2022-08-29 | XR_ITS ---
EXAMINATION: XR knee RT 4V CLINICAL INFORMATION: Reason for Exam RIGHT LEG PAIN/SWELLING COMPARISON: None available at the time of this dictation. TECHNIQUE: frontal, lateral, tunnel and patella sunrise views FINDINGS: BONES: No fracture or dislocation is present. JOINTS: Narrowing of joint spaces and developed osteophytes from the edges of articular surfaces suggest degenerative osteoarthritis. SOFT TISSUE: There is a small knee joint effusion. XR/XR knee RT 4V IMPRESSION: Moderate degenerative osteoarthritis involving primarily medial compartment. Small knee joint effusion.
[2022-08-29 11:38] VITALS: BP 149/98; PULSE 81; RESP 18; TEMP 36.4; O2SAT 99; BMI 35.3
--- NOTE | 2022-08-29 11:39 | ED.ABDPAIN ---
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 Last vomiting was yesterday only 1 time been able to drink after this also complaining of headache keep adding on with complaints no fever or chills not in any distress talking to family member on phone while examining <Meir Calderon MD - Last Filed: 08/29/22 17:03> Related Data Home Medications: Home Medications Medication Instructions Recorded Confirmed emtricitabine 200 mg-rilpivirine 1 tab PO DAILY 06/16/20 09/29/21 25 mg-tenofovir alafenam 25 mg tablet (Isa) fluticasone propionate 220 1 puff inhalation BID 06/16/20 09/29/21 mcg/actuation HFA aerosol inhaler (Flovent HFA) ibuprofen 600 mg tablet 600 mg PO TID 06/16/20 09/29/21 tramadol 50 mg tablet 50 mg PO DAILY 06/16/20 09/29/21 albuterol sulfate 90 mcg/actuation 2 puff inhalation Q6H PRN 07/22/20 09/29/21 aerosol inhaler (ProAir HFA) Shortness Of Breath ciprofloxacin HCl 500 mg tablet 500 mg PO Q12H 09/29/21 09/29/21 (Cipro) melatonin 5 mg tablet 1 tab PO BEDTIME PRN insomnia 09/29/21 09/29/21 Previous Rx's Medication Instructions Recorded metronidazole 500 mg tablet 500 mg PO Q12H 7 days #14 tabs 04/13/21 ondansetron 4 mg disintegrating 4 mg PO Q8H PRN nausea and 08/27/21 tablet vomiting #10 tabs prednisone 20 mg tablet 40 mg PO DAILY #10 tabs 08/27/21 albuterol sulfate 90 mcg/actuation 1 inh inhalation QID PRN shortness 01/31/22 aerosol inhaler of breath or wheezing #8.5 grams prednisone 20 mg tablet 20 mg PO DAILY 12 days #26 tabs 01/31/22 ondansetron 4 mg disintegrating 4 mg PO Q6-8H PRN nausea and 08/29/22 tablet vomiting #7 tabs tramadol 50 mg tablet 50 mg PO Q6H PRN pain #20 tabs 08/29/22 <VIVIANA Lucas - Last Filed: 08/29/22 11:43> Allergies/Adverse Reactions: Allergies Allergy/AdvReac Type Severity Reaction Status Date / Time adhesive tape [ADHESIVE TAPE] Allergy Intermediate RASH Verified 12/03/21 09:51 dolutegravir Allergy Unknown rash Verified 12/03/21 09:51 <VIVIANA Lucas - Last Filed: 08/29/22 11:43> Review of Systems Review of Systems Yes all other systems are reviewed and are negative <Meir Calderon MD - Last Filed: 08/29/22 17:03> [facility] Past Medical History Medical History: Medical History Asthma Deafness History of breast cancer HIV (human immunodeficiency virus infection) Primary osteoarthritis of left knee Primary osteoarthritis of right knee Right knee pain <VIVIANA Lucas - Last Filed: 08/29/22 11:43> Surgical History: Surgical History History of tubal ligation Status post right breast lumpectomy <VIVIANA Lucas - Last Filed: 08/29/22 11:43> Social History Social History: Social History Household Members: None Housing: Apartment Are you a primary care assistant to a significant other at home: No Do you presently have visiting nurse or other home services: Yes Alcohol intake: unknown Patient Tobacco Use Status: Never used Tobacco Advance Directives: No Advance Directives Information Provided: Yes service: No Current occupational status: disabled Current occupation: Right Handed <VIVIANA Lucas - Last Filed: 08/29/22 11:43> Physical Exam ED Vital Signs: Vital Signs - 24 hr 08/29/22 11:38 08/29/22 16:03 Temperature 97.5 F Pulse Rate 81 78 Respiratory Rate 18 18 Blood Pressure 149/98 H 183/90 H Pulse Oximetry 99 100 Oxygen Delivery Method Room Air Room Air BMI result Body Mass Index 35.3 <VIVIANA Lucas - Last Filed: 08/29/22 11:43> Vital Signs - 24 hr 08/29/22 11:38 08/29/22 16:03 Temperature 97.5 F Pulse Rate 81 78 Respiratory Rate 18 18 Blood Pressure 149/98 H 183/90 H Pulse Oximetry 99 100 Oxygen Delivery Method Room Air Room Air BMI result Body Mass Index 35.3 <Meir Calderon MD - Last Filed: 08/29/22 17:03> Appearance: Alert. Oriented X3. No acute distress. Eyes: PERRLA, No Nystagmus ENT: Pharynx normal. Oral Mucosa moist Neck: Normal inspection. Neck supple. CVS: Normal heart rate and rhythm. Pulses normal. Respiratory: No respiratory distress. Equal air entry bilateral, no wheezing/rales/rhonchi Abdomen: Soft and nontender. Bowel sounds are present, no mass palpable, no CVA tenderness Skin: Skin warm and dry. Normal skin color. Normal skin turgor. Extremities: Trace bilateral lower extremity edema. No calf tenderness Neuro: Oriented X 3. No motor deficit. 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 Plan: Patient is stable will obtain labs, COVID/RSV/flu swab, abdominal ultrasound, right lower extremity ultrasound, right knee and ankle x-ray. Patient will be sent back to the waiting room for further evaluation treatment the main ED. <VIVIANA Lucas - Last Filed: 08/29/22 11:43> Medical Decision Making Medical Decision Making [facility] [place] Narrative: Patient with nonspecific multiple complaints no active vomiting at this time lab workup negative for any acute pathology ultrasound abdomen also negative right leg venous Doppler also negative patient emotionally crying adding on more complaints. At this time patient does not require any emergency medications. Will give Zofran and tramadol and discharge patient home advised to follow up with PCP Cause swelling of the legs likely from amlodepine which patient taking along with ibuprofen <Meir Calderon MD - Last Filed: 08/29/22 17:03> Lab Data [facility] [place] Lab Attestation statement: I reviewed the patient's lab results. <Meir Calderon MD - Last Filed: 08/29/22 17:03> Result Diagrams: : 08/29/22 11:51 08/29/22 11:51 <VIVIANA Lucas - Last Filed: 08/29/22 11:43> Labs: Lab Results 08/29/22 08/29/22 08/29/22 Range/Units 11:51 11:51 11:51 WBC 5.0 (4.8-10.8) X10*3/uL RBC 4.56 (4.20-5.50) X10*6/uL Hgb 12.9 (12.0-16.0) g/dl Hct 39.7 (37.0-47.0) % MCV 87.1 (80.0-98.0) fL MCH 28.3 (27.0-33.0) pg MCHC 32.5 (31.0-35.0) g/dl RDW 12.4 (11.0-16.0) % Plt Count 259 (160-400) X10*3/uL MPV 9.0 L (9.4-12.3) fL Immature Gran % (Auto) 0.2 (0.0-0.4) % Neut % (Auto) 57.6 (45-73) % Lymph % (Auto) 32.7 (20-40) % [place] % (Auto) 7.1 (2-11) % Eos % (Auto) 2.0 (0-4) % Baso % (Auto) 0.4 (0-2) % Lymph # (Auto) 1.6 (1.2-4.9) X10*3/uL [place] # (Auto) 0.4 (0.1-1.2) X10*3/uL Eos # (Auto) 0.1 (0.0-0.4) X10*3/uL Baso # (Auto) 0.0 (0.0-0.2) X10*3/uL Abs Immat Gran (auto) 0.01 (0.00-0.03) X10*3/uL Absolute Neuts (auto) 2.9 (2.0-8.3) x10*3/uL Absolute Nucleated RBC 0.000 (0.0-0.012) X10*3/uL Nucleated RBC % (auto) 0.0 (0.0-0.2) /100WBC PT 10.5 (10.0-13.1) SEC INR 0.9 (0.9-1.1) Sodium 142 (135-145) mmol/L Potassium 3.7 (3.3-5.1) mmol/L Chloride 109 H (96-108) mmol/L Carbon Dioxide 27 (22-29) mmol/L Anion Gap 10 L (12-20) BUN 12 (9-16) mg/dL Creatinine 0.72 (0.5-1.4) mg/dL Estim Creat Clear Calc 86.4 Estimated GFR > 60 Random Glucose 111 (60-115) mg/dL Calcium 8.6 (8.4-10.2) mg/dL Magnesium 1.9 (1.6-2.6) mg/dL Total Bilirubin 0.5 (0.0-1.0) mg/dL AST 22 (5-31) U/L ALT 25 (0-31) U/L Alkaline Phosphatase 97 (39-117) U/L Total Protein 6.5 (6.5-8.0) g/dL Albumin 4.0 (3.5-5.0) g/dL Lipase 30 (8-78) U/L Urine Color Urine Appearance Urine pH (5.0-9.0) Ur Specific [place] (1.005-1.025) Urine Protein (Neg-Trace) mg/dL Urine Glucose (UA) (Negative) mg/dL Urine Ketones (Negative) mg/dL Urine Blood (Negative) Urine Nitrite (Negative) Ur Leukocyte Esterase (Negative) Influenza Type A (PCR) (Negative) Influenza Type B (PCR) (Negative) RSV RNA Qual (PCR) (Negative) SARS-CoV-2 RNA (RT-PCR) (Negative) 08/29/22 08/29/22 Range/Units 11:51 16:00 WBC (4.8-10.8) X10*3/uL RBC (4.20-5.50) X10*6/uL Hgb (12.0-16.0) g/dl Hct (37.0-47.0) % MCV (80.0-98.0) fL MCH (27.0-33.0) pg MCHC (31.0-35.0) g/dl RDW (11.0-16.0) % Plt Count (160-400) X10*3/uL MPV (9.4-12.3) fL Immature Gran % (Auto) (0.0-0.4) % Neut % (Auto) (45-73) % Lymph % (Auto) (20-40) % Cors[place] % (Auto) (2-11) % Eos % (Auto) (0-4) % Baso % (Auto) (0-2) % Lymph # (Auto) (1.2-4.9) X10*3/uL [place] # (Auto) (0.1-1.2) X10*3/uL Eos # (Auto) (0.0-0.4) X10*3/uL Baso # (Auto) (0.0-0.2) X10*3/uL Abs Immat Gran (auto) (0.00-0.03) X10*3/uL Absolute Neuts (auto) (2.0-8.3) x10*3/uL Absolute Nucleated RBC (0.0-0.012) X10*3/uL Nucleated RBC % (auto) (0.0-0.2) /100WBC PT (10.0-13.1) SEC INR (0.9-1.1) Sodium (135-145) mmol/L Potassium (3.3-5.1) mmol/L Chloride (96-108) mmol/L Carbon Dioxide (22-29) mmol/L Anion Gap (12-20) BUN (9-16) mg/dL Creatinine (0.5-1.4) mg/dL Estim Creat Clear Calc Estimated GFR Random Glucose (60-115) mg/dL Calcium (8.4-10.2) mg/dL Magnesium (1.6-2.6) mg/dL Total Bilirubin (0.0-1.0) mg/dL AST (5-31) U/L ALT (0-31) U/L Alkaline Phosphatase (39-117) U/L Total Protein (6.5-8.0) g/dL Albumin (3.5-5.0) g/dL Lipase (8-78) U/L Urine Color Yellow Urine Appearance Clear Urine pH 7.0 (5.0-9.0) Ur Specific [place] 1.015 (1.005-1.025) Urine Protein Negative (Neg-Trace) mg/dL Urine Glucose (UA) Negative (Negative) mg/dL Urine Ketones Negative (Negative) mg/dL Urine Blood Negative (Negative) Urine Nitrite Negative (Negative) Ur Leukocyte Esterase Negative (Negative) Influenza Type A (PCR) NEGATIVE (Negative) Influenza Type B (PCR) NEGATIVE (Negative) RSV RNA Qual (PCR) NEGATIVE (Negative) SARS-CoV-2 RNA (RT-PCR) NEGATIVE (Negative) <VIVIANA Lucas - Last Filed: 08/29/22 11:43> Lab Results 08/29/22 08/29/22 08/29/22 Range/Units 11:51 11:51 11:51 WBC 5.0 (4.8-10.8) X10*3/uL RBC 4.56 (4.20-5.50) X10*6/uL Hgb 12.9 (12.0-16.0) g/dl Hct 39.7 (37.0-47.0) % MCV 87.1 (80.0-98.0) fL MCH 28.3 (27.0-33.0) pg MCHC 32.5 (31.0-35.0) g/dl RDW 12.4 (11.0-16.0) % Plt Count 259 (160-400) X10*3/uL MPV 9.0 L (9.4-12.3) fL Immature Gran % (Auto) 0.2 (0.0-0.4) % Neut % (Auto) 57.6 (45-73) % Lymph % (Auto) 32.7 (20-40) % Cors[place] % (Auto) 7.1 (2-11) % Eos % (Auto) 2.0 (0-4) % Baso % (Auto) 0.4 (0-2) % Lymph # (Auto) 1.6 (1.2-4.9) X10*3/uL [place] # (Auto) 0.4 (0.1-1.2) X10*3/uL Eos # (Auto) 0.1 (0.0-0.4) X10*3/uL Baso # (Auto) 0.0 (0.0-0.2) X10*3/uL Abs Immat Gran (auto) 0.01 (0.00-0.03) X10*3/uL Absolute Neuts (auto) 2.9 (2.0-8.3) x10*3/uL Absolute Nucleated RBC 0.000 (0.0-0.012) X10*3/uL Nucleated RBC % (auto) 0.0 (0.0-0.2) /100WBC PT 10.5 (10.0-13.1) SEC INR 0.9 (0.9-1.1) Sodium 142 (135-145) mmol/L Potassium 3.7 (3.3-5.1) mmol/L Chloride 109 H (96-108) mmol/L Carbon Dioxide 27 (22-29) mmol/L Anion Gap 10 L (12-20) BUN 12 (9-16) mg/dL Creatinine 0.72 (0.5-1.4) mg/dL Estim Creat Clear Calc 86.4 Estimated GFR > 60 Random Glucose 111 (60-115) mg/dL Calcium 8.6 (8.4-10.2) mg/dL Magnesium 1.9 (1.6-2.6) mg/dL Total Bilirubin 0.5 (0.0-1.0) mg/dL AST 22 (5-31) U/L ALT 25 (0-31) U/L Alkaline Phosphatase 97 (39-117) U/L Total Protein 6.5 (6.5-8.0) g/dL Albumin 4.0 (3.5-5.0) g/dL Lipase 30 (8-78) U/L Urine Color Urine Appearance Urine pH (5.0-9.0) Ur Specific [place] (1.005-1.025) Urine Protein (Neg-Trace) mg/dL Urine Glucose (UA) (Negative) mg/dL Urine Ketones (Negative) mg/dL Urine Blood (Negative) Urine Nitrite (Negative) Ur Leukocyte Esterase (Negative) Influenza Type A (PCR) (Negative) Influenza Type B (PCR) (Negative) RSV RNA Qual (PCR) (Negative) SARS-CoV-2 RNA (RT-PCR) (Negative) 08/29/22 08/29/22 Range/Units 11:51 16:00 WBC (4.8-10.8) X10*3/uL RBC (4.20-5.50) X10*6/uL Hgb (12.0-16.0) g/dl Hct (37.0-47.0) % MCV (80.0-98.0) fL MCH (27.0-33.0) pg MCHC (31.0-35.0) g/dl RDW (11.0-16.0) % Plt Count (160-400) X10*3/uL MPV (9.4-12.3) fL Immature Gran % (Auto) (0.0-0.4) % Neut % (Auto) (45-73) % Lymph % (Auto) (20-40) % Cors[place] % (Auto) (2-11) % Eos % (Auto) (0-4) % Baso % (Auto) (0-2) % Lymph # (Auto) (1.2-4.9) X10*3/uL [place] # (Auto) (0.1-1.2) X10*3/uL Eos # (Auto) (0.0-0.4) X10*3/uL Baso # (Auto) (0.0-0.2) X10*3/uL Abs Immat Gran (auto) (0.00-0.03) X10*3/uL Absolute Neuts (auto) (2.0-8.3) x10*3/uL Absolute Nucleated RBC (0.0-0.012) X10*3/uL Nucleated RBC % (auto) (0.0-0.2) /100WBC PT (10.0-13.1) SEC INR (0.9-1.1) Sodium (135-145) mmol/L Potassium (3.3-5.1) mmol/L Chloride (96-108) mmol/L Carbon Dioxide (22-29) mmol/L Anion Gap (12-20) BUN (9-16) mg/dL Creatinine (0.5-1.4) mg/dL Estim Creat Clear Calc Estimated GFR Random Glucose (60-115) mg/dL Calcium (8.4-10.2) mg/dL Magnesium (1.6-2.6) mg/dL Total Bilirubin (0.0-1.0) mg/dL AST (5-31) U/L ALT (0-31) U/L Alkaline Phosphatase (39-117) U/L Total Protein (6.5-8.0) g/dL Albumin (3.5-5.0) g/dL Lipase (8-78) U/L Urine Color Yellow Urine Appearance Clear Urine pH 7.0 (5.0-9.0) Ur Specific [place] 1.015 (1.005-1.025) Urine Protein Negative (Neg-Trace) mg/dL Urine Glucose (UA) Negative (Negative) mg/dL Urine Ketones Negative (Negative) mg/dL Urine Blood Negative (Negative) Urine Nitrite Negative (Negative) Ur Leukocyte Esterase Negative (Negative) Influenza Type A (PCR) NEGATIVE (Negative) Influenza Type B (PCR) NEGATIVE (Negative) RSV RNA Qual (PCR) NEGATIVE (Negative) SARS-CoV-2 RNA (RT-PCR) NEGATIVE (Negative) <Meir Calderon MD - Last Filed: 08/29/22 17:03> Medications Administered Discontinued Medications Generic Name Dose Route Start Last Admin Trade Name Freq PRN Reason Stop Dose Admin Ketorolac Tromethamine 60 mg 08/29/22 16:54 08/29/22 16:59 Ketorolac Tromethamine 60 Mg/2 Ml Vial IM 08/29/22 16:55 60 mg ONCE ONE Administration Ondansetron HCl 4 mg 08/29/22 16:44 08/29/22 16:59 Ondansetron Odt 4 Mg Tab.Rapdis TRANSLINGU 08/29/22 16:45 4 mg ONCE ONE Administration <VIVIANA Lucas - Last Filed: 08/29/22 11:43> Medications Administered Discontinued Medications Generic Name Dose Route Start Last Admin Trade Name Freq PRN Reason Stop Dose Admin Ketorolac Tromethamine 60 mg 08/29/22 16:54 08/29/22 16:59 Ketorolac Tromethamine 60 Mg/2 Ml Vial IM 08/29/22 16:55 60 mg ONCE ONE Administration Ondansetron HCl 4 mg 08/29/22 16:44 08/29/22 16:59 Ondansetron Odt 4 Mg Tab.Guillaume TRANSLINGU 08/29/22 16:45 4 mg ONCE ONE Administration <Meir Calderon MD - Last Filed: 08/29/22 17:03> Discharge Plan Discharge Clinical Impression: Rotator cuff arthropathy of right shoulder, Nausea & vomiting <VIVIANA Lucas - Last Filed: 08/29/22 11:43> Instructions: Rotator Cuff Tendinitis (ED), Acute Nausea and Vomiting (ED) <VIVIANA Lucas - Last Filed: 08/29/22 11:43> Additional Instructions: Drink plenty of fluid Pain medication as prescribed Take nausea medication as prescribed Keep your legs elevated Likely amlodipine and ibuprofen causing the swelling of the legs talk to your PCP about changing amlodipine to different medication Marie mucho l?quido Medicamentos para el dolor seg?n lo prescrito [address] los medicamentos para las n?useas seg?n lo prescrito Mant?n tus piernas elevadas Probablemente la amlodipina y el ibuprofeno causen la hinchaz?n de las piernas. Hable con webb PCP acerca de cambiar la amlodipina por otro medicamento. <VIVIANA Lucas - Last Filed: 08/29/22 11:43> Prescriptions: New tramadol 50 mg tablet 50 mg PO Q6H PRN (Reason: pain) Qty: 20 0RF ondansetron 4 mg tablet,disintegrating 4 mg PO Q6-8H PRN (Reason: nausea and vomiting) Qty: 7 0RF No Action albuterol sulfate [ProAir HFA] 90 mcg/actuation Hfa Aerosol Inhaler 2 puff INHALATION Q6H PRN (Reason: Shortness Of Breath) metronidazole 500 mg tablet 500 mg PO Q12H 7 Days Qty: 14 0RF prednisone 20 mg tablet 40 mg PO DAILY Qty: 10 0RF ondansetron 4 mg tablet,disintegrating 4 mg PO Q8H PRN (Reason: nausea and vomiting) Qty: 10 0RF melatonin 5 mg tablet 1 tab PO BEDTIME PRN (Reason: insomnia) ciprofloxacin HCl [Cipro] 500 mg tablet 500 mg PO Q12H prednisone 20 mg tablet 20 mg PO DAILY 12 Days Qty: 26 0RF Rx Instructions: Take 3 tablets for 5 days THEN; Take 2 tablets for 4 days THEN; Take 1 tablet for 3 days albuterol sulfate 90 mcg/actuation HFA aerosol inhaler 1 inh inhalation QID PRN (Reason: shortness of breath or wheezing) Qty: 8.5 0RF Odefsey 200-25-25 mg tablet 1 tab PO DAILY Rx Instructions: must administer with a meal/food ibuprofen 600 mg tablet 600 mg PO TID Flovent HFA 220 mcg/actuation HFA aerosol inhaler 1 puff inhalation BID tramadol 50 mg tablet 50 mg PO DAILY <VIVIANA Lucas - Last Filed: 08/29/22 11:43> Print Language: Montserratian <VIVIANA Lucas - Last Filed: 08/29/22 11:43>
[2022-08-29 11:56] LABS: MANUAL DIFF FLAG NO
[2022-08-29 12:01] LABS: Basophils Percent Auto 0.4 % (0-2); Eosinophils Absolute Auto 0.1 X10*3/uL (0.0-0.4); Hematocrit 39.7 % (37.0-47.0); Hemoglobin 12.9 g/dl (12.0-16.0); INTERNATIONAL NORM RATIO 0.9 (0.9-1.1); Imm Gran Abs Auto 0.01 X10*3/uL (0.00-0.03); Imm Gran Pct Auto 0.2 % (0.0-0.4); Lymphocytes Absolute Auto 1.6 X10*3/uL (1.2-4.9); Lymphocytes Percent Auto 32.7 % (20-40); Mean Corpuscular HGB Conc 32.5 g/dl (31.0-35.0); Mean Corpuscular Hemoglobin 28.3 pg (27.0-33.0); Mean Corpuscular Volume 87.1 fL (80.0-98.0); Monocytes Absolute Auto 0.4 X10*3/uL (0.1-1.2); Monocytes Percent Auto 7.1 % (2-11); Neutrophils Absolute Auto 2.9 x10*3/uL (2.0-8.3); Neutrophils Percent Auto 57.6 % (45-73); Platelet Count 259 X10*3/uL (160-400); Prothrombin Time 10.5 SEC (10.0-13.1); Red Blood Count 4.56 X10*6/uL (4.20-5.50); Red Cell Distribution Width 12.4 % (11.0-16.0)
[2022-08-29 12:12] LABS: Alanine Aminotransferase 25 U/L (0-31); Alkaline Phosphatase 97 U/L (39-117); Anion Gap 10 (12-20); Aspartate Amino Transferase 22 U/L (5-31); Bilirubin Total 0.5 mg/dL (0.0-1.0); Blood Urea Nitrogen 12 mg/dL (9-16); Calcium 8.6 mg/dL (8.4-10.2); Carbon Dioxide 27 mmol/L (22-29); Chloride 109 mmol/L (96-108); Creatinine Clr Calc Pharmacy 86.4; Estimated Glomerular Filt Rate > 60; Glucose Random 111 mg/dL (60-115); Lipase 30 U/L (8-78); Magnesium 1.9 mg/dL (1.6-2.6); Potassium 3.7 mmol/L (3.3-5.1); Sodium 142 mmol/L (135-145); Total Protein 6.5 g/dL (6.5-8.0)
[2022-08-29 12:38] LABS: Influenza A PCR NEGATIVE (Negative); Influenza B PCR NEGATIVE (Negative); Resp Syncy Virus RNA Qual PCR NEGATIVE (Negative); SARS COV2 PCR INHOUSE NEGATIVE (Negative)
[2022-08-29 16:03] VITALS: BP 183/90; PULSE 78; RESP 18; O2SAT 100
[2022-08-29 16:16] LABS: Appearance Urine Clear; Color Urine Yellow; Glucose Urine UA Negative (Negative); Leukocyte Esterase Urine Negative (Negative); Nitrite Urine Negative (Negative); Specific Gravity - Urine 1.015 (1.005-1.025); Urine Blood Negative (Negative); Urine Ketones Negative (Negative); Urine Protein Negative (Neg-Trace)
[2022-08-29] MEDS: Ondansetron ODT 4 MG TAB.RAPDIS TRANSLINGU (16:59)
[2022-08-29] MEDS: Ketorolac Tromethamine 60 MG/2 ML VIAL IM (16:59)
== END 2022-08-29 17:15 | disposition home or self-care (01) ==
PROVIDERS: Physician Assistant Medical; Emergency Provider Internal Medicine; PCP Family Medicine
DX: R11.2 Nausea with vomiting, unspecified (principal); M12.9 Arthropathy, unspecified; M25.512 Pain in left shoulder; R60.0 Localized edema; M79.604 Pain in right leg; M17.0 Bilateral primary osteoarthritis of knee; Z20.828 Contact with and (suspected) exposure to other viral communicable diseases; B20 Human immunodeficiency virus [HIV] disease; Z79.84 Long term (current) use of oral hypoglycemic drugs; Z79.899 Other long term (current) drug therapy; Z85.3 Personal history of malignant neoplasm of breast
CPT/HCPCS: 0241U; 73564; 73610; 76700; 80053; 81003; 83690; 83735; 85025; 85610; 93971; 96372; 99283; 99284; J1885

== ENCOUNTER 2022-11-09 09:09 | Outpatient (REF) | payer MEDICAID, SELFPAY ==
[2022-11-11 02:04] LABS: HPV mRNA E6/E7 rflx Not Detected (Not Detected)
== END 2022-11-09 09:10 | disposition home or self-care (01) ==
LOC: HO.LNP 09:09
PROVIDERS: PCP Family Medicine; Visit Provider Obstetrics & Gynecology
DX: Z01.419 Encounter for gynecological examination (general) (routine) without abnormal findings (principal)
CPT/HCPCS: 87624; 88142

== ENCOUNTER → 2022-11-30 11:33 | Outpatient (BNVA) | payer MEDICAID, SELFPAY | PROVIDERS: PCP Family Medicine; Visit Provider Nurse Practitioner | DX: Z01.818 Encounter for other preprocedural examination (principal); K21.9 Gastro-esophageal reflux disease without esophagitis; B20 Human immunodeficiency virus [HIV] disease; H91.90 Unspecified hearing loss, unspecified ear | CPT/HCPCS: 99202; 99212 ==

== ENCOUNTER 2022-12-01 12:06 | Outpatient (REF) | payer MEDICAID, SELFPAY ==
[2022-12-02 03:50] LABS: HBc Num1 0.09 S/CO (0.00-0.79); HBsAGNum1 0.34 S/CO (0.00-0.99); Hepatitis A Antibody IgM 0.34 Index (0-0.79); Hepatitis B Core Antibody Nonreactive (Nonreactive); Hepatitis B Surface Antigen Negative (Negative); ~HepC Num1 0.09 S/CO (0.00-0.79); ~Hepatitis A Antibody IgM Nonreactive (Nonreactive); ~Hepatitis B Surface Antibody NONREACTIVE (Nonreactive); ~Hepatitis C Antibody Nonreactive (Nonreactive)
[2022-12-04 04:34] LABS: TS Negative Control Passed; TS Panel A 0; TS Panel B 0; TS Positive Control Passed; TSpotTB Negative (Negative)
== END 2022-12-01 12:07 | disposition home or self-care (01) ==
LOC: HO.LAB 12:06
PROVIDERS: Visit Provider Nurse Practitioner
DX: Z01.818 Encounter for other preprocedural examination (principal); B20 Human immunodeficiency virus [HIV] disease
CPT/HCPCS: 36415; 86481; 86704; 86706; 86709; 86803; 87340

== ENCOUNTER 2022-12-04 13:28 | Outpatient (REF) | payer MEDICAID, SELFPAY | END 2022-12-04 13:29 | disposition home or self-care (01) | LOC: HO.LNP 13:28 | PROVIDERS: Visit Provider Nurse Practitioner | DX: K21.9 Gastro-esophageal reflux disease without esophagitis (principal) | CPT/HCPCS: 87338 ==

== ENCOUNTER 2022-12-21 10:09 | Outpatient (REF) | payer MEDICAID, SELFPAY ==
--- NOTE | ~2022-12-21 | MM_ITS ---
EXAMINATION: MM DIAGNOSTIC DIGITAL BREAST TOMOSYNTHESIS, LEFT US TARGETED BREAST, LEFT CLINICAL INFORMATION: Previous right mastectomy. Pain with question palpable abnormality 11 o'clock position of the left breast. COMPARISON: Mammography: 06/18/2019 and studies dating back to 01/22/2014.. TECHNIQUE: Digital breast tomosynthesis is performed in both the craniocaudal and mediolateral oblique views along with computer-aided detection (CAD). Synthesized 2D images are generated from the tomosynthesis. Targeted left breast ultrasound. FINDINGS: There are scattered areas of fibroglandular density (ACR BI-RADS breast composition Category b). There are no significant masses, abnormal calcifications, or other abnormalities. Targeted ultrasound evaluation of the left breast about the superomedial aspect where the patient and her caregiver mention the abnormality is. Screening was also performed at the 3 o'clock position. No abnormal cystic or solid masses identified. No region of abnormal distal sound shadowing was seen. Results are discussed with the patient at time of visit. MM/MM tomosynthesis diagnostic LT IMPRESSION: No mammographic or ultrasound findings to suggest malignancy. ASSESSMENT: BI-RADS 1: Negative RECOMMENDATION: 1. Patient should be managed based on the clinical impression. Decision to proceed with biopsy should be based on clinical grounds and degree of clinical concern. 2. Otherwise, routine annual screening mammography. This patient's information was entered into a reminder system with a target due date for their next mammogram.
--- NOTE | ~2022-12-21 | MM_ITS ---
EXAMINATION: BONE DENSITOMETRY CLINICAL INDICATION: Osteopenia. COMPARISON: Previous BD dated 06/18/2019 and baseline BD dated 06/13/2013. TECHNIQUE: Using a [employer] Math DXA System (software version: 13.1) manufactured by [employer], dual-energy x-ray absorptiometry was performed of the lumbar spine and left hip. The images are of good technical quality. Summary results are attached. FINDINGS: AP SPINE L1-L4: Current: BMD 0.773 g/cm2, Z-score -2.9, T-score -3.4, osteoporosis, 15.6% decrease from previous, 21.0% decrease from baseline (<5% change is not significant). Prior: BMD 0.916 g/cm2. Baseline: BMD 0.979 g/cm2. LEFT FEMUR, NECK: Current: BMD 0.570 g/cm2, Z-score -2.6, T-score -3.4, osteoporosis. Prior: BMD 0.788 g/cm2. Baseline: BMD 0.925 g/cm2. LEFT FEMUR, TOTAL: Current: BMD 0.719 g/cm2, Z-score -1.9, T-score -2.3, osteopenia, 20.2% decrease from previous, 32.8% decrease from baseline (<5% change is not significant). Prior: BMD 0.901 g/cm2. Baseline: BMD 1.070 g/cm2. IDENTIFIED RISK FACTORS: Menopause, glucocorticoids (chronic). HISTORY OF FRACTURE: None listed. MEDICATIONS: Calcium supplements or multivitamin, vitamin D. MM/XR DEXA axial skeleton IMPRESSION: 1. DIAGNOSIS: Osteoporosis based on the lowest T-score value of -3.4 in the femoral neck and lumbar spine applying World Health Organization criteria. 2. 10-YEAR FRACTURE RISK PREDICTION, FRAX: According to the guidelines, FRAX calculation should only be performed on patients in the osteopenia bone density category. Therefore, FRAX was not performed on this patient. 3. Treatment Recommendations: NOF guidelines recommend consideration for treatment in postmenopausal women and men age 50 and older presenting with the following: -A hip or vertebral (clinical or morphometric) fracture. -T-score less than or equal to -2.5 at the femoral neck or spine after appropriate evaluation to exclude secondary causes. -Low bone mass at the hip or spine and a 10-year fracture probability by FRAX of greater than or equal to 3% for hip fracture or greater than or equal to 20% for major osteoporotic fracture based on the [place] adapted WHO algorithm. 4. Other Recommendations: All treatment decisions require clinical judgment and consideration of individual patient factors, including patient preferences, comorbidities, previous drug use, risk factors not captured in the FRAX model (e.g. frailty, falls, vitamin D deficiency, increased bone turnover, interval significant decline in bone density) and possible under or overestimation of fracture risk by FRAX. Additional medical evaluation for secondary cause of low bone mineral density may be appropriate. FUTURE SCAN RECOMMENDATION: People with diagnosed cases of osteoporosis or at high risk for fracture should have regular bone mineral density tests. For patients eligible for Medicare, routine testing is allowed once every 2 years. The testing frequency can be increased to one year for patients who have rapidly progressing disease, those who are receiving or discontinuing medical therapy to restore bone mass, or have additional risk factors.
== END 2022-12-21 10:10 | disposition home or self-care (01) ==
LOC: HO.MAMMO 10:09
PROVIDERS: PCP Family Medicine; Visit Provider Internal Medicine Medical Oncology
DX: Z13.820 Encounter for screening for osteoporosis (principal); M85.80 Other specified disorders of bone density and structure, unspecified site; Z78.0 Asymptomatic menopausal state; N63.25 Unspecified lump in the left breast, overlapping quadrants
CPT/HCPCS: 76642; 77061; 77065; 77080

== ENCOUNTER → 2023-01-11 11:31 | Outpatient (BNVA) | payer MEDICAID, SELFPAY | PROVIDERS: PCP Family Medicine; Referring Provider Family Medicine; Visit Provider Nurse Practitioner | DX: K21.9 Gastro-esophageal reflux disease without esophagitis (principal); H91.90 Unspecified hearing loss, unspecified ear; B20 Human immunodeficiency virus [HIV] disease; A04.8 Other specified bacterial intestinal infections | CPT/HCPCS: 99212 ==

== ENCOUNTER → 2023-02-21 11:36 | Outpatient (BNVA) | payer MEDICAID, SELFPAY | PROVIDERS: PCP Family Medicine; Visit Provider Nurse Practitioner | DX: A04.8 Other specified bacterial intestinal infections (principal); K21.9 Gastro-esophageal reflux disease without esophagitis; H91.90 Unspecified hearing loss, unspecified ear; B20 Human immunodeficiency virus [HIV] disease | CPT/HCPCS: 99212 ==

== ENCOUNTER 2023-04-10 12:39 | Outpatient (REF) | payer MEDICAID, SELFPAY ==
[2023-04-10 16:04] LABS: MANUAL DIFF FLAG NO
[2023-04-10 16:16] LABS: Basophils Percent Auto 0.2 % (0-2); Eosinophils Absolute Auto 0.1 X10*3/uL (0.0-0.4); Eosinophils Percent Auto 1.6 % (0-4); Hematocrit 40.3 % (37.0-47.0); Imm Gran Abs Auto 0.02 X10*3/uL (0.00-0.03); Imm Gran Pct Auto 0.4 % (0.0-0.4); Lymphocytes Absolute Auto 1.8 X10*3/uL (1.2-4.9); Lymphocytes Percent Auto 32.2 % (20-40); Mean Corpuscular HGB Conc 32.3 g/dl (31.0-35.0); Mean Corpuscular Hemoglobin 28.6 pg (27.0-33.0); Mean Corpuscular Volume 88.8 fL (80.0-98.0); Mean Platelet Volume 9.6 fL (9.4-12.3); Monocytes Absolute Auto 0.4 X10*3/uL (0.1-1.2); Monocytes Percent Auto 7.1 % (2-11); Neutrophils Absolute Auto 3.3 x10*3/uL (2.0-8.3); Neutrophils Percent Auto 58.5 % (45-73); Platelet Count 282 X10*3/uL (160-400); Red Blood Count 4.54 X10*6/uL (4.20-5.50); Red Cell Distribution Width 12.6 % (11.0-16.0); White Blood Count 5.7 X10*3/uL (4.8-10.8)
[2023-04-11 01:42] LABS: Alanine Aminotransferase 28 U/L (0-31); Alkaline Phosphatase 80 U/L (39-117); Anion Gap 9 (12-20); Aspartate Amino Transferase 25 U/L (5-31); Bilirubin Total 0.3 mg/dL (0.0-1.0); Blood Urea Nitrogen 12 mg/dL (9-16); Calcium 9.2 mg/dL (8.4-10.2); Carbon Dioxide 29 mmol/L (22-29); Chloride 108 mmol/L (96-108); Estimated Glomerular Filt Rate > 60; Glucose Random 86 mg/dL (60-115); Potassium 3.7 mmol/L (3.3-5.1); Sodium 142 mmol/L (135-145)
[2023-04-11 13:14] LABS: Absolute CD3 Count 1597 cells/uL (840-3060); Absolute CD4 Count 598 cells/uL (490-1740); Absolute CD8 Count 1022 cells/uL (180-1170); Absolute Lymphocytes 1932 cells/uL (850-3900); CD4 CD8 Ratio 0.58 (0.86-5.00); Percent CD3 Cells 83 % (57-85); Percent CD4 Cells 31 % (30-61); Percent CD8 Cells 53 % (12-42)
[2023-04-14 12:43] LABS: HIV RNA PCR Qn Copies Not Detected Copies/mL; HIV RNA PCR Qn Log Copies Not Detected Log cps/mL
== END 2023-04-10 12:40 | disposition home or self-care (01) ==
LOC: HO.HHCL 12:39
PROVIDERS: Visit Provider Family Medicine
DX: B20 Human immunodeficiency virus [HIV] disease (principal)
CPT/HCPCS: 36415; 80053; 85025; 86359; 86360; 87536; 87900

== ENCOUNTER 2023-06-12 10:03 | Outpatient (REF) | payer MEDICAID, SELFPAY ==
[2023-06-12 11:17] LABS: MANUAL DIFF FLAG NO
[2023-06-12 11:36] LABS: Basophils Percent Auto 0.4 % (0-2); Eosinophils Absolute Auto 0.1 X10*3/uL (0.0-0.4); Eosinophils Percent Auto 2.6 % (0-4); Hematocrit 39.8 % (37.0-47.0); Hemoglobin 12.9 g/dl (12.0-16.0); Imm Gran Abs Auto 0.02 X10*3/uL (0.00-0.03); Imm Gran Pct Auto 0.4 % (0.0-0.4); Lymphocytes Absolute Auto 1.5 X10*3/uL (1.2-4.9); Lymphocytes Percent Auto 32.2 % (20-40); Mean Corpuscular HGB Conc 32.4 g/dl (31.0-35.0); Mean Corpuscular Hemoglobin 28.6 pg (27.0-33.0); Mean Corpuscular Volume 88.2 fL (80.0-98.0); Mean Platelet Volume 9.7 fL (9.4-12.3); Monocytes Absolute Auto 0.3 X10*3/uL (0.1-1.2); Monocytes Percent Auto 6.7 % (2-11); Neutrophils Absolute Auto 2.7 x10*3/uL (2.0-8.3); Neutrophils Percent Auto 57.7 % (45-73); Platelet Count 271 X10*3/uL (160-400); Red Blood Count 4.51 X10*6/uL (4.20-5.50); Red Cell Distribution Width 12.3 % (11.0-16.0); White Blood Count 4.7 X10*3/uL (4.8-10.8)
[2023-06-12 11:48] LABS: Estimated Average Glucose 128 mg/dL; Hemoglobin A1c % 6.1 % (<6.0)
[2023-06-12 11:56] LABS: Alanine Aminotransferase 28 U/L (0-31); Alkaline Phosphatase 94 U/L (39-117); Anion Gap 14 (12-20); Aspartate Amino Transferase 20 U/L (5-31); Bilirubin Total 0.3 mg/dL (0.0-1.0); Blood Urea Nitrogen 16 mg/dL (9-16); Calcium 9.2 mg/dL (8.4-10.2); Carbon Dioxide 24 mmol/L (22-29); Chloride 106 mmol/L (96-108); Estimated Glomerular Filt Rate > 60; Glucose Random 104 mg/dL (60-115); Potassium 3.6 mmol/L (3.3-5.1); Sodium 140 mmol/L (135-145); Total Protein 6.9 g/dL (6.5-8.0)
[2023-06-12 12:15] LABS: Cholesterol 194 mg/dL (<200); HDL Cholesterol 58 mg/dL (>40); LDL Cholesterol Calculated 122 mg/dL (<100); Triglycerides 73 mg/dL (<150)
[2023-06-12 12:54] LABS: Syphilis Screen Nonreactive (Nonreactive)
[2023-06-12 13:36] LABS: Reflex LDLD? No
[2023-06-13 11:09] LABS: Absolute CD3 Count 1277 cells/uL (840-3060); Absolute CD4 Count 550 cells/uL (490-1740); Absolute CD8 Count 741 cells/uL (180-1170); Absolute Lymphocytes 1578 cells/uL (850-3900); CD4 CD8 Ratio 0.74 (0.86-5.00); Percent CD3 Cells 81 % (57-85); Percent CD4 Cells 35 % (30-61); Percent CD8 Cells 47 % (12-42)
[2023-06-13 18:28] LABS: HIV RNA PCR Qn Copies 28 copies/mL (NOT DETECTED); HIV RNA PCR Qn Log Copies 1.45 (NOT DETECTED)
[2023-06-14 16:49] LABS: TS Negative Control Passed; TS Panel A 0; TS Panel B 0; TS Positive Control Passed; TSpotTB Negative (Negative)
[2023-06-14 18:39] LABS: HCV Log PCR <1.18 NOT DETECTED Log IU/mL (NOT DETECTED); HepC Viral Load <15 NOT DETECTED IU/mL (NOT DETECTED)
== END 2023-06-12 10:04 | disposition home or self-care (01) ==
LOC: HO.HHCL 10:03
PROVIDERS: Visit Provider Student in an Organized Health Care Education/Training Program
DX: Z11.1 Encounter for screening for respiratory tuberculosis (principal); B20 Human immunodeficiency virus [HIV] disease
CPT/HCPCS: 80053; 80061; 83036; 85025; 86359; 86360; 86481; 86780; 87522; 87536

== ENCOUNTER 2023-06-19 13:29 | Outpatient (REF) | payer MEDICAID, SELFPAY ==
[2023-06-19 14:11] LABS: Appearance Urine Clear; Color Urine Yellow; Glucose Urine UA Negative (Negative); Leukocyte Esterase Urine Trace (Negative); Nitrite Urine Negative (Negative); UMIC TRIGGER UACC YES; Urine Blood Negative (Negative); Urine Ketones Negative (Negative); Urine Protein Negative (Neg-Trace)
[2023-06-19 14:19] LABS: Bacteria Urine None Seen (None Seen); Hyaline Casts Urine 0-2 /LPF (0-2); RBC Urine 0-2 /HPF (0-2); Squamous Epithelial Cell Urine 0-2 /HPF (0-2); WBC Urine 0-5 /HPF (0-5)
[2023-06-19 16:33] LABS: CT PCR NOT DETECTED (Not Detect.); NG PCR NOT DETECTED (Not Detect.)
== END 2023-06-19 13:30 | disposition home or self-care (01) ==
LOC: HO.HHCLNP 13:29
PROVIDERS: Visit Provider Student in an Organized Health Care Education/Training Program
DX: B20 Human immunodeficiency virus [HIV] disease (principal)
CPT/HCPCS: 0353U; 81001; 81003

== ENCOUNTER 2023-07-02 22:07 | Emergency (ER) | payer MEDICAID, SELFPAY ==
--- NOTE | 2023-07-02 | ECG_ITS ---
Test Reason : DYSPNEA Blood Pressure : / mmHG Vent. Rate : 075 BPM Atrial Rate : 075 BPM P-R Int : 136 ms QRS Dur : 082 ms QT Int : 384 ms P-R-T Axes : 056 010 059 degrees QTc Int : 428 ms Normal sinus rhythm Normal ECG No significant changes seen Referred By: Generic ED Physician Electronically Signed By:ROMAN DEAN MD
--- NOTE | 2023-07-02 | ECG_ITS ---
Test Reason : SOB Blood Pressure : / mmHG Vent. Rate : 085 BPM Atrial Rate : 085 BPM P-R Int : 138 ms QRS Dur : 086 ms QT Int : 374 ms P-R-T Axes : 052 -04 065 degrees QTc Int : 445 ms Sinus rhythm artifact RSR' or QR pattern in V1 suggests right ventricular conduction delay Nonspecific ST abnormality Abnormal ECG No significant changes seen Referred By: Generic ED Physician Electronically Signed By:ROMAN DEAN MD
--- NOTE | ~2023-07-02 | XR_ITS ---
EXAMINATION: XR CHEST CLINICAL INFORMATION: Dyspnea COMPARISON: Chest radiograph 01/31/2022. TECHNIQUE: Frontal view of the chest was obtained. FINDINGS: Clear lungs. No pleural effusion or pneumothorax. Cardiomediastinal silhouette is unchanged. Surgical clips overlie the right chest wall/axilla. XR/XR chest 1V IMPRESSION: No acute cardiopulmonary abnormality.
[2023-07-02 22:13] VITALS: BP 182/106; PULSE 80; O2SAT 99; BMI 38.4
[2023-07-02 22:26] VITALS: BP 158/74; PULSE 75; RESP 20; TEMP 36.9; O2SAT 96
[2023-07-02 22:36] LABS: Basophils Percent Auto 0.4 % (0-2); Eosinophils Absolute Auto 0.1 X10*3/uL (0.0-0.4); Hematocrit 39.5 % (37.0-47.0); Hemoglobin 12.9 g/dl (12.0-16.0); Imm Gran Abs Auto 0.02 X10*3/uL (0.00-0.03); Imm Gran Pct Auto 0.4 % (0.0-0.4); Lymphocytes Absolute Auto 1.5 X10*3/uL (1.2-4.9); Lymphocytes Percent Auto 28.1 % (20-40); MANUAL DIFF FLAG NO; Mean Corpuscular HGB Conc 32.7 g/dl (31.0-35.0); Mean Corpuscular Hemoglobin 28.7 pg (27.0-33.0); Mean Corpuscular Volume 87.8 fL (80.0-98.0); Mean Platelet Volume 8.8 fL (9.4-12.3); Monocytes Absolute Auto 0.4 X10*3/uL (0.1-1.2); Monocytes Percent Auto 6.9 % (2-11); Neutrophils Absolute Auto 3.4 x10*3/uL (2.0-8.3); Neutrophils Percent Auto 62.2 % (45-73); Platelet Count 254 X10*3/uL (160-400); Red Cell Distribution Width 12.2 % (11.0-16.0); White Blood Count 5.4 X10*3/uL (4.8-10.8)
--- NOTE | 2023-07-02 22:45 | ED_ITS ---
HPI - SOB/Dyspnea General Chief Complaint: Dyspnea Stated Complaint: SOB. 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 Stated that patient had 1 time vomiting and has epigastric pain after the vomiting. Related Data Home Medications Medication Instructions Recorded Confirmed emtricitabine 200 mg-rilpivirine 1 tab PO DAILY 06/16/20 04/24/23 25 mg-tenofovir alafenam 25 mg tablet (Odefsey) fluticasone propionate 220 1 puff inhalation BID 06/16/20 04/24/23 mcg/actuation HFA aerosol inhaler (Flovent HFA) melatonin 5 mg tablet 1 tab PO BEDTIME PRN insomnia 09/29/21 04/24/23 amlodipine 5 mg tablet 5 mg PO QAM 11/30/22 04/24/23 calcium carbonate 500 mg-vitamin 1 tab PO DAILY 11/30/22 04/24/23 D3 5 mcg (200 unit) tablet (Oyster Shell Calcium-Vitamin D3) Previous Rx's Medication Instructions Recorded albuterol sulfate 90 mcg/actuation 1 inh inhalation QID PRN shortness 01/31/22 aerosol inhaler of breath or wheezing #8.5 grams prednisone 20 mg tablet 20 mg PO DAILY 12 days #26 tabs 01/31/22 ondansetron 4 mg disintegrating 4 mg PO Q6-8H PRN nausea and 08/29/22 tablet vomiting #7 tabs cimetidine 200 mg tablet 200 mg PO BEDTIME #30 tabs 01/11/23 albuterol sulfate 90 mcg/actuation 1 puff inhalation QID PRN 07/03/23 aerosol inhaler shortness of breath or wheezing #8.5 grams Allergies Allergy/AdvReac Type Severity Reaction Status Date / Time adhesive tape [ADHESIVE TAPE] Allergy Intermediate RASH Verified 02/21/23 11:46 dolutegravir Allergy Unknown rash Verified 02/21/23 11:46 Review of Systems 2 Review of Systems: All other systems are reviewed and are negative Constitutional: Reports as per HPI and Reports no additional constitutional complaints Eyes: Reports as per HPI and Reports no additional eye complaints Reports system reviewed and no additional complaints, except as documented Cardiovascular: Reports as per HPI and Reports no additional cardiovascular complaints Respiratory: Reports as per HPI and Reports no additional respiratory complaints Gastrointestinal: Reports as per HPI and Reports no additional gastrointestinal complaints Genitourinary: Reports no additional female genitourinary complaints Musculoskeletal: Reports no additional musculoskeletal complaints Skin/Breast: Reports system reviewed and no additional complaints, except as docu Psychiatric: Reports no additional psychiatric complaints Endocrine: Reports no additional endocrine complaints Hematologic/Lymphatic: Reports no additional hematologic/lymphatic complaints Allergic/Immunologic: Reports no additional allergic/immunologic complaints Reports system reviewed and no additional complaints, except as documented and Reports Abnormal speech present [facility] Past Medical History Medical History Dysplasia of cervix, low grade (KAREN 1) Right knee pain Asthma History of breast cancer Primary osteoarthritis of left knee Primary osteoarthritis of right knee Deafness HIV (human immunodeficiency virus infection) Surgical History Status post right breast lumpectomy History of tubal ligation Social History Social History Household Members: None Housing: Apartment Are you a primary pet caregiver to a significant other at home: No Do you presently have visiting nurse or other home services: Yes Alcohol intake: unknown Patient Tobacco Use Status: Never used Tobacco Smoked in Last 30 Days: No Use of substances other than those prescribed or required for medical reasons: No Advance Directives: No Advance Directives Information Provided: No service: No Current occupational status: disabled Current occupation: Right Handed Physical Exam 2 Vital Signs: Vital Signs: Last Vital Signs Temp 98.5 F 07/02/23 22:26 Pulse 71 07/02/23 23:48 Resp 21 H 07/02/23 23:48 BP 158/74 H 07/02/23 22:26 Pulse Ox 96 07/02/23 22:26 O2 Del Method Room Air 07/02/23 22:26 BMI result Body Mass Index 38.4 Vital signs have been reviewed and appear to be correct. Blood pressure elevated. Heart rate normal. Respiratory rate normal. Temperature normal. Oxygen saturation normal. Appearance: Alert. Oriented X3. Head: Normal external exam. Normocephalic. Atraumatic. No Quach signs noted. No raccoon eyes noted Eyes: PERRLA. EOMI. Conjunctiva and sclera normal. Eyelids normal. ENT: TM's Normal. Pharynx normal. Uvula midline. Moist mucous membranes. No trismus noted. No drooling noted. No muffled voice noted. Neck: Normal inspection. Neck supple. FROM. No adenopathy. Thyroid Normal. No meningeal signs. No neck mass noted. CVS: Normal heart rate and rhythm. Heart sound normal. No murmurs noted. Pulses normal throughout. Respiratory: Mild respiratory distress. Painless inspiration. Breath sounds normal. diffuse bilateral expiratory wheezing with prolonged expiration. Chest nontender. No accessory muscle usage noted or decreased air movement noted. Abdomen: Soft and nontender. Bowel sounds normal in all 4 quadrants. No distention noted. No organomegaly noted. No visible injury noted. Back: No CVA tenderness. Full range of motion noted. Skin: Skin warm and dry. Normal skin color. Normal skin turgor. No rashes/lesions/lacerations noted. Extremities: No lower extremity edema. Extremities exhibit normal range of motion. Extremities nontender. Neuro: Oriented X 3. Cranial nerve exam: II-XII are grossly intact No motor deficit. No sensory deficit. Reflexes normal. Course Reevaluation(s) Reevaluation #1: came in for shortness of breath and wheezing after she ran out of her home medication for asthma, patient also was complaining of chest tightness has unremarkable EKG with negative troponin x2. Will discharge the patient with prescription of albuterol. Time: 01:41 Medications Administered Discontinued Medications Generic Name Dose Route Start Last Admin Trade Name Freq PRN Reason Stop Dose Admin Al Hydroxide/Mg Hydroxide 30 ml 07/02/23 22:43 07/02/23 22:56 Magnesium Hydrox/Alum Hydrox 30 Ml Oral.Susp PO 07/02/23 22:44 30 ml ONCE ONE Administration Albuterol/Ipratropium 3 ml 07/02/23 23:45 07/02/23 23:47 Albuterol/Iprat 2.5/0.5mg 3 Ml Ampul.Neb INHALE 07/02/23 23:46 3 ml ONCE ONE Administration Famotidine 20 mg 07/02/23 22:43 07/02/23 22:56 Famotidine/Pf 20 Mg/2 Ml Vial IVPUSH 07/02/23 22:44 20 mg ONCE ONE Administration Methylprednisolone Sodium Succinate 125 mg 07/02/23 22:43 07/02/23 22:56 Methylprednisolone Sod Succ 125 Mg/2 Ml Vial IVPUSH 07/02/23 22:44 125 mg ONCE ONE Administration Ondansetron HCl 4 mg 07/02/23 22:43 07/02/23 22:56 Ondansetron Hcl 4 Mg/2 Ml Vial IVPUSH 07/02/23 22:44 4 mg ONCE ONE Administration Medical Decision Making Differential Diagnosis Differential Diagnoses: The differential diagnosis associated with the presentation includes ( ACS, dysrhythmia, asthma exacerbation, pneumonia, pneumothorax, pleural effusion, electrolyte abnormality, severe anemia , UTI.) Admission/Observation Consideration of admission/observation: Escalation of care including admission/observation considered Lab Data MDM Lab Attestation statement: I reviewed the patient's lab results. 07/02/23 22:28 07/02/23 22:28 Labs: Lab Results 07/02/23 07/02/23 Range/Units 22:28 23:05 WBC 5.4 (4.8-10.8) X10*3/uL RBC 4.50 (4.20-5.50) X10*6/uL Hgb 12.9 (12.0-16.0) g/dl Hct 39.5 (37.0-47.0) % MCV 87.8 (80.0-98.0) fL MCH 28.7 (27.0-33.0) pg MCHC 32.7 (31.0-35.0) g/dl RDW 12.2 (11.0-16.0) % Plt Count 254 (160-400) X10*3/uL MPV 8.8 L (9.4-12.3) fL Immature Gran % (Auto) 0.4 (0.0-0.4) % Neut % (Auto) 62.2 (45-73) % Lymph % (Auto) 28.1 (20-40) % [place] % (Auto) 6.9 (2-11) % Eos % (Auto) 2.0 (0-4) % Baso % (Auto) 0.4 (0-2) % Lymph # (Auto) 1.5 (1.2-4.9) X10*3/uL [place] # (Auto) 0.4 (0.1-1.2) X10*3/uL Eos # (Auto) 0.1 (0.0-0.4) X10*3/uL Baso # (Auto) 0.0 (0.0-0.2) X10*3/uL Abs Immat Gran (auto) 0.02 (0.00-0.03) X10*3/uL Absolute Neuts (auto) 3.4 (2.0-8.3) x10*3/uL Absolute Nucleated RBC 0.000 (0.0-0.012) X10*3/uL Nucleated RBC % (auto) 0.0 (0.0-0.2) /100WBC Sodium 141 (135-145) mmol/L Potassium 3.8 (3.3-5.1) mmol/L Chloride 104 (96-108) mmol/L Carbon Dioxide 28 (22-29) mmol/L Anion Gap 13 (12-20) BUN 10 (9-16) mg/dL Creatinine 0.72 (0.5-1.4) mg/dL Estim Creat Clear Calc 87.1 Estimated GFR > 60 Random Glucose 129 H (60-115) mg/dL Calcium 9.3 (8.4-10.2) mg/dL Troponin I High Sens < 2.7 (<3.5-17.0) ng/L Urine Color Yellow Urine Appearance Cloudy Urine pH 7.5 (5.0-9.0) Ur Specific Fabens 1.015 (1.005-1.025) Urine Protein Negative (Neg-Trace) mg/dL Urine Glucose (UA) Negative (Negative) mg/dL Urine Ketones Negative (Negative) mg/dL Urine Blood Negative (Negative) Urine Nitrite Negative (Negative) Ur Leukocyte Esterase Small (1+) H (Negative) Urine RBC 0-2 (0-2) /HPF Urine WBC 0-5 (0-5) /HPF Ur Squamous Epith Cells 0-2 (0-2) /HPF Urine Bacteria None Seen (None Seen) Hyaline Casts 0-2 (0-2) /LPF Influenza Type A (PCR) NEGATIVE (Negative) Influenza Type B (PCR) NEGATIVE (Negative) RSV RNA Qual (PCR) NEGATIVE (Negative) SARS-CoV-2 RNA (RT-PCR) NEGATIVE (Negative) Independent Interpretation I performed an independent interpretation of an: Plain X-Ray ( Chest: No acute cardiopulmonary abnormality.) Radiology Impression Discussion of test interpretation with radiology: I have reviewed the radiologist's reading. Chronic Conditions Patient?s care impacted by: Other ( Asthma.) Discharge Plan Discharge Clinical Impression: Asthma with exacerbation Patient Disposition: Home, Self-Care Instructions: Asthma (ED) Prescriptions: New albuterol sulfate 90 mcg/actuation HFA aerosol inhaler 1 puff inhalation QID PRN (Reason: shortness of breath or wheezing) Qty: 8.5 0RF No Action melatonin 5 mg tablet 1 tab PO BEDTIME PRN (Reason: insomnia) prednisone 20 mg tablet 20 mg PO DAILY 12 Days Qty: 26 0RF Rx Instructions: Take 3 tablets for 5 days THEN; Take 2 tablets for 4 days THEN; Take 1 tablet for 3 days albuterol sulfate 90 mcg/actuation HFA aerosol inhaler 1 inh inhalation QID PRN (Reason: shortness of breath or wheezing) Qty: 8.5 0RF ondansetron 4 mg tablet,disintegrating 4 mg PO Q6-8H PRN (Reason: nausea and vomiting) Qty: 7 0RF Hold Instructions: Doctor's Order Odefsey 200-25-25 mg tablet 1 tab PO DAILY Rx Instructions: must administer with a meal/food Flovent HFA 220 mcg/actuation HFA aerosol inhaler 1 puff inhalation BID amlodipine 5 mg tablet 5 mg PO QAM calcium carbonate-vitamin D3 [Oyster Shell Calcium-Vit D3] 500 mg-5 mcg (200 unit) tablet 1 tab PO DAILY cimetidine 200 mg tablet 200 mg PO BEDTIME Qty: 30 6RF
[2023-07-02 22:48] LABS: Anion Gap 13 (12-20); Blood Urea Nitrogen 10 mg/dL (9-16); Calcium 9.3 mg/dL (8.4-10.2); Carbon Dioxide 28 mmol/L (22-29); Chloride 104 mmol/L (96-108); Creatinine Clr Calc Pharmacy 87.1; Estimated Glomerular Filt Rate > 60; Glucose Random 129 mg/dL (60-115); Potassium 3.8 mmol/L (3.3-5.1); Sodium 141 mmol/L (135-145)
[2023-07-02] MEDS: Famotidine/PF 20 MG/2 ML VIAL IVPUSH (22:56)
[2023-07-02] MEDS: methylPREDNISolone Sod Succ 125 MG/2 ML VIAL IVPUSH (22:56)
[2023-07-02] MEDS: ondansetron HCL 4 MG/2 ML VIAL IVPUSH (22:56)
[2023-07-02] MEDS: Magnesium Hydrox/Alum Hydrox 30 ML ORAL.SUSP PO (22:56)
[2023-07-02 22:58] LABS: Troponin-I High Sensitivity < 2.7 ng/L (<3.5-17.0)
[2023-07-02 23:12] LABS: Appearance Urine Cloudy; Color Urine Yellow; Glucose Urine UA Negative (Negative); Leukocyte Esterase Urine Small (1+) (Negative); Nitrite Urine Negative (Negative); PH 7.5 (5.0-9.0); Specific Gravity - Urine 1.015 (1.005-1.025); UMIC TRIGGER UACC YES; Urine Blood Negative (Negative); Urine Ketones Negative (Negative); Urine Protein Negative (Neg-Trace)
[2023-07-02 23:13] LABS: Influenza A PCR NEGATIVE (Negative); Influenza B PCR NEGATIVE (Negative); Resp Syncy Virus RNA Qual PCR NEGATIVE (Negative); SARS COV2 PCR INHOUSE NEGATIVE (Negative)
--- NOTE | 2023-07-02 23:16 | PC.NURSE ---
pt biba fromh ome. pt a&Ox4, respirations even and unlabored. pt reports mid epigastric pain, sob, nausea, and vomiting. pt reports history of asthma and that she ran out of her current inhaler. pt reports throwing up 4 times prior to arrival to the ED. pt epigastric region tender to touch, active bowel sounds noted throughout. pt lung sounds clear bilaterally. normal sinus on tele 79-80, 95-97% on room air. pt received neb in ambulance prior to arrival.
[2023-07-02 23:19] LABS: Bacteria Urine None Seen (None Seen); Hyaline Casts Urine 0-2 /LPF (0-2); RBC Urine 0-2 /HPF (0-2); Squamous Epithelial Cell Urine 0-2 /HPF (0-2); UACC Culture Trigger YES; WBC Urine 0-5 /HPF (0-5)
[2023-07-02] MEDS: Albuterol/Iprat 2.5/0.5MG 3 ML AMPUL.NEB INHALE (23:47)
[2023-07-02 23:48] VITALS: PULSE 71; RESP 21; O2SAT 98
[2023-07-03 02:48] LABS: Troponin-I High Sensitivity < 2.7 ng/L (<3.5-17.0)
[2023-07-03 04:51] VITALS: BP 162/98; PULSE 83; RESP 20; TEMP 37.1; O2SAT 98
== END 2023-07-03 04:53 | disposition home or self-care (01) ==
PROVIDERS: Emergency Provider Emergency Medicine
DX: J45.901 Unspecified asthma with (acute) exacerbation (principal); R06.02 Shortness of breath; R06.00 Dyspnea, unspecified; H91.3 Deaf nonspeaking, not elsewhere classified; R07.89 Other chest pain; Z20.822 Contact with and (suspected) exposure to COVID-19; Z20.828 Contact with and (suspected) exposure to other viral communicable diseases; Z79.899 Other long term (current) drug therapy
CPT/HCPCS: 0241U; 36415; 71045; 80048; 81001; 84484; 85025; 87086; 93005; 94640; 96374; 96375; 99285; J2405; J2930

== ENCOUNTER 2023-08-22 13:09 | Outpatient (AMB) | payer MEDICAID, SELFPAY ==
--- NOTE | 2023-08-22 13:12 | A.OFFVIS_ITS ---
Intake Vital Signs 08/22/23 13:14 Height 5 ft 2 in Weight 209 lb BMI 38.2 Intake Visit Reasons: OV- RT Knee pain Intake Note: Aiyana 63 year old female presents today for a follow up of right knee, last injection 12/03/21. Patient reports injection provided good relief and she would like to repeat today. Allergies adhesive tape [ADHESIVE TAPE] Allergy (Intermediate, Verified 02/21/23 11:46) RASH dolutegravir Allergy (Unknown, Verified 02/21/23 11:46) rash Medication List - Last Reconciled 08/23/23 by Melida Solomon PA-C albuterol sulfate 90 mcg/actuation 1 inh inhalation QID PRN albuterol sulfate 90 mcg/actuation 1 puff inhalation QID PRN amlodipine 5 mg PO QAM calcium carbonate-vitamin D3 500 mg-5 mcg (200 unit) (Oyster Shell Calcium- Vitamin D3) 1 tab PO DAILY cimetidine 200 mg PO BEDTIME [id number] ala 200-25-25 mg (Odefsey) 1 tab PO DAILY fluticasone propionate 220 mcg/actuation (Flovent HFA) 1 puff inhalation BID melatonin 1 tab PO BEDTIME PRN ondansetron 4 mg PO Q6-8H PRN prednisone 20 mg PO DAILY 12 days HPI OV- RT Knee pain HPI Details 63-year-old female who returns to the [facility] today for a follow-up of right knee pain. She had her last injection on 12/03/22 which provided her good relief. She was able to perform daily activities without pain. She would like to repeat the injection. [facility] Medical History Dysplasia of cervix, low grade (KAREN 1) Right knee pain Asthma History of breast cancer Primary osteoarthritis of left knee Primary osteoarthritis of right knee Deafness HIV (human immunodeficiency virus infection) Surgical History Status post right breast lumpectomy History of tubal ligation Social History Household Members: None Housing: Apartment Are you a primary residential care officer to a significant other at home: No Do you presently have visiting nurse or other home services: Yes Alcohol intake: unknown Patient Tobacco Use Status: Never used Tobacco service: No Current occupational status: disabled Current occupation: Right Handed Review of Systems Const All systems reviewed & are unremarkable except as noted in HPI and below Physical Exam Vital Signs: BMI result Body Mass Index 38.2 Extrem Other: Right knee skin intact, no erythema or joint effusion. Varus Alignment Tenderness along the medial joint line. ROM full with crepitus. Negative steinmans. No ligamentous laxity. NVI. Office Procedures Joint Injection/Drain Joint Injection/Drain Primary Site: right knee Prep: site was prepped using aseptic technique, ethochloride spray was applied and injection warnings given Injected: 80 mg of, DepoMedrol, with 8 mL of, 1% plain lidocaine and in the joint Approach Used: anterolateral Procedure: The patient tolerated the procedure well and there was some relief with the local anesthesia Coding 59885 - Glenohumeral/Tronchanteric Bursa/Intraarticular Procedure code (CPT) selection complete Assessment & Plan Assessment & Plan (1) Tricompartment osteoarthritis of right knee: Code(s): M17.11 - Unilateral primary osteoarthritis, right knee Plan We discussed options today which include steroid injection. They did consent to move forward with the right knee injection, which was tolerated well. I recommended rest, ice and elevation and OTC anti-inflammatories PRN for discomfort. If symptoms persist or worsens over the next 6-8 weeks, patient will contact the office, otherwise follow-up as needed. Patient Instructions: Scribed for Melida Solomon PA-C, by Trenton Fox medical dosimetrist, on 08/22/2023 a t 1:00 PM EST. Melida Amaya PA-C, have personally reviewed and agree with the information entered by the scribe. Coding Level of Care Code Est Pt Level 3 (36642) Diagnoses Tricompartment osteoarthritis of right knee M17.11 CPT Codes Coding - Joint 7: 81449 - Glenohumeral/Tronchanteric Bursa/Intraarticular ([id number])
[2023-08-22 13:14] VITALS: BMI 38.2
== END 2023-08-22 13:44 | disposition home or self-care (01) ==
PROVIDERS: Visit Provider Physician Assistant
DX: M17.11 Unilateral primary osteoarthritis, right knee (principal)
CPT/HCPCS: 20610; 99213

== ENCOUNTER → 2023-08-22 13:09 | Outpatient (BNVA) | payer MEDICAID, SELFPAY | PROVIDERS: Visit Provider Physician Assistant | DX: M17.11 Unilateral primary osteoarthritis, right knee (principal) | CPT/HCPCS: 20610; 99212; J1040 ==

== ENCOUNTER 2023-11-01 10:20 | Outpatient (AMB) | payer MEDICAID, SELFPAY ==
[2023-11-01 10:30] VITALS: BP 147/69; PULSE 76; BMI 39.5
--- NOTE | 2023-11-01 10:30 | A.OFFVIS_ITS ---
Intake Vital Signs 11/01/23 10:30 Height 5 ft Weight 202 lb 6.15 oz BMI 39.5 BP 147/69 H Blood Pressure Location Lt brachial Position Sitting Pulse 76 Intake Visit Reasons: Follow up GERD Intake Note: Patient presents to in office visit today in follow up of GERD. CC: Patient c/o epigastric pain and acid reflux. Denies other GI symptoms. Per DIVER PUMPER the patient does not eat well and mostly eats chips and drinks soda. Greenhouse Or Nursery Transplanter Required: Yes Greenhouse Or Nursery Transplanter Name: DIVER PUMPER Allergies adhesive tape [ADHESIVE TAPE] Allergy (Intermediate, Verified 11/06/23 13:39) RASH dolutegravir Allergy (Unknown, Verified 11/06/23 13:39) rash HPI Follow up GERD HPI Details Assessment & Plan (1) H. pylori infection: Code(s): A04.8 - Other specified bacterial intestinal infections Plan: . COLONOSCOPY Not yet scheduled or obtained. BIOPSY TODAY'S VISIT DJIBOUTIAN/ASL #DIVER PUMPER translates She is having intermittent diarrhea after the abx but not all the time. She also has a lot of regurg and still will have intermittent epigastric pain. she is unclear if this has improved since treatment. This is worse is worse at bedtime with laying down. She continues with the cimetidine at bedtime. I tell him to wait a week since they just completed the antibiotic therapy last week before retesting for the H pylori to see if we eradicating it. I use Levaquin/amoxicillin rescue therapy because some of the other medications had contraindications relative to her HIV medicines. This will need to be taken into consideration if we need to retreat. ROV 4 weeks. (2) GERD (gastroesophageal reflux diseas e): Code(s): K21.9 - Gastro-esophageal reflux disease without esophagitis (3) Deafness: Comment: Congolese speaking and needs ASL results technician Code(s): H91.90 - Unspecified hearing loss, unspecified ear (4) HIV (human immunodeficiency virus in fection): Code(s): B20 - Human immunodeficiency virus [HIV] disease Orders: Orders H pylori Ag Stool Today A04.8 - Other spec ified bacterial in testinal infection s LABS: EGD/COLONOSCOPY Not yet scheduled or obtained. BIOPSY TODAY'S VISIT DJIBOUTIAN/ASL #DIVER PUMPER translates She still has upper abd pain, but her DIVER PUMPER says the pt refused to do the repeat HP test - apparently she has difficulty understanding. I will order and EGD/colonoscopy for her to evaluate more thoroughly. Her DIVER PUMPER also says that she tends to eat very poorly a lot of junk food and this could be contributing along with her pension for drinking a lot of soda. Apparently she switched from coke to sprite but the citric acid in this still causes concerned but the patient has difficulty understanding this. I print a GERD diet list in Congolese for them using CRAB PICKER. There are no known prior problems with anesthesia or sedation. Her asthma is a variable control as she has trouble walking but she is currently seeing a long doctor for this. They deny any cardiac problems. She has HIV which is controlled on anti-retroviral medications. She does not know her family history so we do not know about the family history of colon cancer stomach cancer. Again, she completed Levaquin amoxicillin therapy for H pylori but we have been unable to confirm eradication. There are quite a few medications that would be contraindicated with her HIV medications. Her diarrhea has resolved. ROV 3 month. [facility] Medical History (Updated 11/06/23 @ 23:26 by VIVIANA Ro) Pre-op examination Well woman exam COVID-19 Dysplasia of cervix, low grade (KAREN 1) Right knee pain Asthma History of breast cancer Primary osteoarthritis of left knee Primary osteoarthritis of right knee Deafness HIV (human immunodeficiency virus infection) Surgical History Status post right breast lumpectomy History of tubal ligation Social History Household Members: None Housing: Apartment Are you a primary child care giver to a significant other at home: No Do you presently have visiting nurse or other home services: Yes Alcohol intake: unknown Patient Tobacco Use Status: Never used Tobacco Advance Directives: No service: No Current occupational status: disabled Current occupation: Right Handed Review of Systems Const Denies fatigue, Denies fever(s), Denies night sweats, Denies poor appetite and Denies weight loss ENT Denies Normal hearing present, Denies dysphagia, Denies odynophagia, Denies throat swelling and Denies tongue swelling Card Reports no additional complaints Resp Reports no additional complaints GI Details: Reports abdominal pain, Denies melena, Denies bloating, Denies hematochezia, Denies constipation, Denies GI cramping, Denies dysphagia, Denies excessive flatus, Denies early satiety, Reports heartburn, Denies diarrhea, Denies nausea, Denies odynophagia, Denies vomiting and Denies hematemesis Musc Reports abnormal gait and Reports arthralgias Skin/Breast Denies pruritus, Denies lesions, Denies rash and Denies jaundice Neuro Denies Normal hearing present, Denies Abnormal speech present and Reports abnormal gait Endo Denies fatigue Aller/Immun Denies throat swelling and Denies tongue swelling Physical Exam Vital Signs: Last Vital Signs Pulse 76 11/01/23 10:30 BP 147/69 H 11/01/23 10:30 BMI result Body Mass Index 39.5 Const General: cooperative, no acute distress, well developed and well groomed Nutritional Appearance: well nourished and obese Orientation/consciousness: oriented to person, oriented to place and oriented to time Limitations: language barrier, ambulation with walker and other limitations (deaf ASL) HEENT Head: Yes normocephalic and Yes atraumatic Eyes General: appearance normal, both eyes and all related structures Pupils: Equal, round and reactive pupils present Neck Neck: Yes normal visual inspection and Yes no lymphadenopathy Thyroid: Thyroid normal Resp Effort & Inspection: normal respiratory effort and able to speak in complete sentences Auscultation: clear to auscultation bilaterally Cardio Rate: regular rate Rhythm: regular rhythm Heart sounds: Normal, physiologic split S2 sound present Peripheral pulses: radial pulses present and posterior tibial pulses present GI Inspection: No distended, Yes Abdominal panniculus present and Yes obesity Palpation (GI): Soft to palpation, nontender, no guarding, not rigid and No hepatosplenomegaly present Percussion: Yes normal to percussion Auscultation: normal bowel sounds Rectal Exam - Female: deferred Skin General skin exam: no rashes or lesions noted, turgor normal, skin not dry, no jaundice, No spider nevi and no striae Rashes: no rashes Nails: normal Neuro General: oriented to person, oriented to place and oriented to time Cranial nerves: Yes Equal, round and reactive pupils present and No Normal hearing present Speech: No Abnormal speech present Extrem General: Yes normal to inspection, No clubbing, No cyanosis and No edema Psych Appearance: grossly normal and well kempt Mental Status: other Speech and movement: Normal speech and movement present Affect: normal affect Attitude: cooperative Thought process: not confabulating and Impoverished thought process present Thought content: Normal thought content present Insight: Poor insight present (Psych) Judgement: Poor judgement present (Psych) Assessment & Plan Assessment & Plan (1) H. pylori infection: Code(s): A04.8 - Other specified bacterial intestinal infections (2) GERD (gastroesophageal reflux disease): Code(s): K21.9 - Gastro-esophageal reflux disease without esophagitis (3) Upper abdominal pain: Code(s): R10.10 - Upper abdominal pain, unspecified Plan DJIBOUTIAN/ASL #DIVER PUMPER translates She still has upper abd pain, but her DIVER PUMPER says the pt refused to do the repeat HP test - apparently she has difficulty understanding. I will order and EGD/colonoscopy for her to evaluate more thoroughly. Her DIVER PUMPER also says that she tends to eat very poorly a lot of junk food and this could be contributing along with her pension for drinking a lot of soda. Apparently she switched from coke to sprite but the citric acid in this still causes concerned but the patient has difficulty understanding this. I print a GERD diet list in Congolese for them using CRAB PICKER. There are no known prior problems with anesthesia or sedation. Her asthma is a variable control as she has trouble walking but she is currently seeing a long doctor for this. They deny any cardiac problems. She has HIV which is controlled on anti-retroviral medications. She does not know her family history so we do not know about the family history of colon cancer stomach cancer. Again, she completed Levaquin amoxicillin therapy for H pylori but we have been unable to confirm eradication. There are quite a few medications that would be contraindicated with her HIV medications. Her diarrhea has resolved. ROV 3 month. Orders: Orders EGD/[place] Combo - GI Use Only 11/01/23 A04.8 - Other specified bacterial intestinal infections, K21.9 - Gastro-esophageal reflux disease without esophagitis, R10.10 - Upper abdominal pain, unspecified Medications: New bisacodyl (Dulcolax (bisacodyl)) 10 mg (2 x 5 mg) PO BEDTIME 2 days 4 tabs 0RF Refilled cimetidine 200 mg PO BEDTIME 30 tabs 6RF Coding Level of Care Code Est Pt Level 4 (32009) Diagnoses H. pylori infection A04.8 GERD (gastroesophageal reflux disease) K21.9 Upper abdominal pain R10.10
== END 2023-11-01 11:32 | disposition home or self-care (01) ==
PROVIDERS: Visit Provider Nurse Practitioner
DX: A04.8 Other specified bacterial intestinal infections (principal); K21.9 Gastro-esophageal reflux disease without esophagitis; R10.10 Upper abdominal pain, unspecified
CPT/HCPCS: 99214

== ENCOUNTER → 2023-11-01 10:20 | Outpatient (BNVA) | payer MEDICAID, SELFPAY | PROVIDERS: Visit Provider Nurse Practitioner | DX: K21.9 Gastro-esophageal reflux disease without esophagitis (principal); A04.8 Other specified bacterial intestinal infections; R10.10 Upper abdominal pain, unspecified | CPT/HCPCS: 99212 ==

== ENCOUNTER 2023-11-06 12:46 | Emergency (ER) | payer MEDICAID, SELFPAY ==
--- NOTE | ~2023-11-06 | XR_ITS ---
EXAMINATION: XR CHEST CLINICAL INFORMATION: Question pneumonia. COMPARISON: Chest radiograph dated 07/02/2023. TECHNIQUE: Frontal view of the chest was obtained. FINDINGS: The trachea is in normal anatomic position. Heart size is normal. There is no pneumonia. No pleural effusion or pneumothorax. No acute osseous abnormality. XR/XR chest 1V IMPRESSION: No pneumonia.
[2023-11-06 13:40] VITALS: BP 150/71; PULSE 84; RESP 19; TEMP 36.6; O2SAT 97; BMI 39.2
--- NOTE | 2023-11-06 13:45 | ECG_ITS ---
Test Reason : abd pain Blood Pressure : / mmHG Vent. Rate : 071 BPM Atrial Rate : 071 BPM P-R Int : 126 ms QRS Dur : 086 ms QT Int : 412 ms P-R-T Axes : 061 002 051 degrees QTc Int : 447 ms Normal sinus rhythm Normal ECG When compared with ECG of 02-JUL-2023 22:33, No significant change was found Referred By: Dipak Hurst Electronically Signed By:JOSSE AYERS MD
--- NOTE | 2023-11-06 13:46 | ED_ITS ---
HPI - General Adult General Chief complaint: General Medical Stated complaint: dizzy vomiting chills History of Present Illness HPI narrative: LEFT WITHOUT COMPLETION OF TREATMENT Related Data Home Medications Medication Instructions Recorded Confirmed emtricitabine 200 mg-rilpivirine 1 tab PO DAILY 06/16/20 10/24/23 25 mg-tenofovir alafenam 25 mg tablet (Odefsey) fluticasone propionate 220 1 puff inhalation BID 06/16/20 10/24/23 mcg/actuation HFA aerosol inhaler (Flovent HFA) melatonin 5 mg tablet 1 tab PO BEDTIME PRN insomnia 09/29/21 10/24/23 amlodipine 5 mg tablet 5 mg PO QAM 11/30/22 10/24/23 calcium carbonate 500 mg-vitamin 1 tab PO DAILY 11/30/22 10/24/23 D3 5 mcg (200 unit) tablet (Oyster Shell Calcium-Vitamin D3) Previous Rx's Medication Instructions Recorded albuterol sulfate 90 mcg/actuation 1 inh inhalation QID PRN shortness 01/31/22 aerosol inhaler of breath or wheezing #8.5 grams prednisone 20 mg tablet 20 mg PO DAILY 12 days #26 tabs 01/31/22 ondansetron 4 mg disintegrating 4 mg PO Q6-8H PRN nausea and 08/29/22 tablet vomiting #7 tabs albuterol sulfate 90 mcg/actuation 1 puff inhalation QID PRN 07/03/23 aerosol inhaler shortness of breath or wheezing #8.5 grams bisacodyl 5 mg tablet,delayed 10 mg (2 x 5 mg) PO BEDTIME 2 days 11/01/23 release (Dulcolax (bisacodyl)) #4 tabs cimetidine 200 mg tablet 200 mg PO BEDTIME #30 tabs 11/01/23 peg 3350-electrolytes 236 240 ml PO Q10M 1 day #4,000 mL 11/02/23 gram-22.74 gram-6.74 gram-5.86 gram solution (Golytely) Allergies Allergy/AdvReac Type Severity Reaction Status Date / Time adhesive tape [ADHESIVE TAPE] Allergy Intermediate RASH Verified 11/06/23 13:39 dolutegravir Allergy Unknown rash Verified 11/06/23 13:39 [facility] Past Medical History Medical History (Updated 11/06/23 @ 23:26 by VIVIANA Ro) Pre-op examination Well woman exam COVID-19 Dysplasia of cervix, low grade (KAREN 1) Right knee pain Asthma History of breast cancer Primary osteoarthritis of left knee Primary osteoarthritis of right knee Deafness HIV (human immunodeficiency virus infection) Surgical History Status post right breast lumpectomy History of tubal ligation Social History Social History Household Members: None Housing: Apartment Are you a primary caregivers homecare to a significant other at home: No Do you presently have visiting nurse or other home services: Yes Alcohol intake: unknown Patient Tobacco Use Status: Never used Tobacco Advance Directives: No service: No Current occupational status: disabled Current occupation: Right Handed Physical Exam ED Vital Signs: Vital Signs - 24 hr 11/06/23 13:40 Temperature 98 F Pulse Rate 84 Respiratory Rate 19 Blood Pressure 150/71 H Pulse Oximetry 97 BMI result Body Mass Index 39.2 Course Course Course Narrative: RME: 63 yold female Deaf presents to the D for epigastric abdominal pain, fever, chills, nausea, vomitting, and coughing for couple of days. SPoke with sign language video intepreter. labs chest xray, and ekg ordered. Medical Decision Making Lab Data 11/06/23 14:08 11/06/23 14:08 Labs: Lab Results 11/06/23 Range/Units 14:08 WBC 5.3 (4.8-10.8) X10*3/uL RBC 4.60 (4.20-5.50) X10*6/uL Hgb 13.1 (12.0-16.0) g/dl Hct 40.3 (37.0-47.0) % MCV 87.6 (80.0-98.0) fL MCH 28.5 (27.0-33.0) pg MCHC 32.5 (31.0-35.0) g/dl RDW 12.8 (11.0-16.0) % Plt Count 242 (160-400) X10*3/uL MPV 9.2 L (9.4-12.3) fL Immature Gran % (Auto) 0.2 (0.0-0.4) % Neut % (Auto) 61.3 (45-73) % Lymph % (Auto) 27.7 (20-40) % [place] % (Auto) 8.1 (2-11) % Eos % (Auto) 2.3 (0-4) % Baso % (Auto) 0.4 (0-2) % Lymph # (Auto) 1.5 (1.2-4.9) X10*3/uL [place] # (Auto) 0.4 (0.1-1.2) X10*3/uL Eos # (Auto) 0.1 (0.0-0.4) X10*3/uL Baso # (Auto) 0.0 (0.0-0.2) X10*3/uL Abs Immat Gran (auto) 0.01 (0.00-0.03) X10*3/uL Absolute Neuts (auto) 3.3 (2.0-8.3) x10*3/uL Absolute Nucleated RBC 0.000 (0.0-0.012) X10*3/uL Nucleated RBC % (auto) 0.0 (0.0-0.2) /100WBC PT 10.6 L (11.1-13.3) SEC INR 0.9 (0.9-1.1) APTT 26.0 (26.0-36.8) SEC Sodium 141 (135-145) mmol/L Potassium 3.4 (3.3-5.1) mmol/L Chloride 107 (96-108) mmol/L Carbon Dioxide 27 (22-29) mmol/L Anion Gap 10 L (12-20) BUN 14 (9-16) mg/dL Creatinine 0.70 (0.5-1.4) mg/dL Estim Creat Clear Calc 82.7 Estimated GFR > 60 Random Glucose 119 H (60-115) mg/dL Calcium 9.2 (8.4-10.2) mg/dL Total Bilirubin 0.3 (0.0-1.0) mg/dL AST 20 (5-31) U/L ALT 22 (0-31) U/L Alkaline Phosphatase 87 (39-117) U/L Troponin I High Sens < 2.7 (<3.5-17.0) ng/L Total Protein 7.0 (6.5-8.0) g/dL Albumin 4.0 (3.5-5.0) g/dL Lipase 27 (8-78) U/L Influenza Type A (PCR) NEGATIVE (Negative) Influenza Type B (PCR) NEGATIVE (Negative) RSV RNA Qual (PCR) NEGATIVE (Negative) SARS-CoV-2 RNA (RT-PCR) POSITIVE A (Negative) S. pyogenes GrpA RODGER Negative (Negative) Discharge Plan Discharge Clinical Impression: COVID-19 Patient Disposition: Left W/O Completing Treatment Prescriptions: No Action peg 3350-electrolytes [Golytely] 236-22.74-6.74 -5.86 gram recon soln 240 ml PO Q10M 1 Days Qty: 4000 0RF Rx Instructions: until fecal effluent is clear; do not exceed a total volume of 2,000 mL melatonin 5 mg tablet 1 tab PO BEDTIME PRN (Reason: insomnia) prednisone 20 mg tablet 20 mg PO DAILY 12 Days Qty: 26 0RF Rx Instructions: Take 3 tablets for 5 days THEN; Take 2 tablets for 4 days THEN; Take 1 tablet for 3 days albuterol sulfate 90 mcg/actuation HFA aerosol inhaler 1 inh inhalation QID PRN (Reason: shortness of breath or wheezing) Qty: 8.5 0RF ondansetron 4 mg tablet,disintegrating 4 mg PO Q6-8H PRN (Reason: nausea and vomiting) Qty: 7 0RF Hold Instructions: Doctor's Order albuterol sulfate 90 mcg/actuation HFA aerosol inhaler 1 puff inhalation QID PRN (Reason: shortness of breath or wheezing) Qty: 8.5 0RF Odefsey 200-25-25 mg tablet 1 tab PO DAILY Rx Instructions: must administer with a meal/food Flovent HFA 220 mcg/actuation HFA aerosol inhaler 1 puff inhalation BID amlodipine 5 mg tablet 5 mg PO QAM calcium carbonate-vitamin D3 [Oyster Shell Calcium-Vit D3] 500 mg-5 mcg (200 unit) tablet 1 tab PO DAILY bisacodyl [Dulcolax (bisacodyl)] 5 mg tablet,delayed release (DR/EC) 10 mg PO BEDTIME 2 Days Qty: 4 0RF cimetidine 200 mg tablet 200 mg PO BEDTIME Qty: 30 6RF Discharge Date/Time: 11/06/23 22:16
[2023-11-06 14:16] LABS: MANUAL DIFF FLAG NO
[2023-11-06 14:27] LABS: INTERNATIONAL NORM RATIO 0.9 (0.9-1.1); Prothrombin Time 10.6 SEC (11.1-13.3)
[2023-11-06 14:28] LABS: Basophils Percent Auto 0.4 % (0-2); Eosinophils Absolute Auto 0.1 X10*3/uL (0.0-0.4); Eosinophils Percent Auto 2.3 % (0-4); Hematocrit 40.3 % (37.0-47.0); Hemoglobin 13.1 g/dl (12.0-16.0); Imm Gran Abs Auto 0.01 X10*3/uL (0.00-0.03); Imm Gran Pct Auto 0.2 % (0.0-0.4); Lymphocytes Absolute Auto 1.5 X10*3/uL (1.2-4.9); Lymphocytes Percent Auto 27.7 % (20-40); Mean Corpuscular HGB Conc 32.5 g/dl (31.0-35.0); Mean Corpuscular Hemoglobin 28.5 pg (27.0-33.0); Mean Corpuscular Volume 87.6 fL (80.0-98.0); Mean Platelet Volume 9.2 fL (9.4-12.3); Monocytes Absolute Auto 0.4 X10*3/uL (0.1-1.2); Monocytes Percent Auto 8.1 % (2-11); Neutrophils Absolute Auto 3.3 x10*3/uL (2.0-8.3); Neutrophils Percent Auto 61.3 % (45-73); Platelet Count 242 X10*3/uL (160-400); Red Cell Distribution Width 12.8 % (11.0-16.0); White Blood Count 5.3 X10*3/uL (4.8-10.8)
[2023-11-06 14:34] LABS: Alanine Aminotransferase 22 U/L (0-31); Alkaline Phosphatase 87 U/L (39-117); Anion Gap 10 (12-20); Aspartate Amino Transferase 20 U/L (5-31); Bilirubin Total 0.3 mg/dL (0.0-1.0); Blood Urea Nitrogen 14 mg/dL (9-16); Calcium 9.2 mg/dL (8.4-10.2); Carbon Dioxide 27 mmol/L (22-29); Chloride 107 mmol/L (96-108); Creatinine Clr Calc Pharmacy 82.7; Estimated Glomerular Filt Rate > 60; Glucose Random 119 mg/dL (60-115); IDNOW Serial# 08D9AD1C; Lipase 27 U/L (8-78); Potassium 3.4 mmol/L (3.3-5.1); Sodium 141 mmol/L (135-145); Strep A Nucleic Acid Negative (Negative)
[2023-11-06 14:44] LABS: Troponin-I High Sensitivity < 2.7 ng/L (<3.5-17.0)
[2023-11-06 15:29] LABS: Influenza A PCR NEGATIVE (Negative); Influenza B PCR NEGATIVE (Negative); Resp Syncy Virus RNA Qual PCR NEGATIVE (Negative); SARS COV2 PCR INHOUSE POSITIVE (Negative)
== END 2023-11-06 22:16 | disposition left against medical advice (07) ==
PROVIDERS: Physician Assistant; Emergency Provider Emergency Medicine
DX: U07.1 COVID-19 (principal); J45.909 Unspecified asthma, uncomplicated; Z21 Asymptomatic human immunodeficiency virus [HIV] infection status
CPT/HCPCS: 0241U; 36415; 71045; 80053; 83690; 84484; 85025; 85610; 85730; 87651; 93005; 99283

== ENCOUNTER → 2023-11-06 13:45 | Outpatient (BNV) | payer MEDICAID, SELFPAY | PROVIDERS: Visit Provider Internal Medicine Cardiovascular Disease | DX: R10.9 Unspecified abdominal pain (principal) | CPT/HCPCS: 93010 ==

== ENCOUNTER 2023-11-16 10:20 | Outpatient (AMB) | payer MEDICAID, SELFPAY ==
--- NOTE | 2023-11-16 10:23 | MHC.OFFVIS ---
Intake Vital Signs 11/16/23 10:39 Height 5 ft Weight 198 lb 4 oz BMI 38.7 BP 190/81 H Blood Pressure Location Lt brachial Position Sitting Pulse 75 Intake Visit Reasons: Hx of breast CA Intake Note: Patient is seen in office for history of breast cancer. Pt c/o: had mastectomy done in the right breast aprox 8 yrs ago, is seen oncologist and has an upcoming mammogram scheduled, denies any concerns with the breast mm sched:12/26/23 refer:Dr Wen Vacuum Applicator Operator Required: Yes Vacuum Applicator Operator Language: Kosovan Sign Language Pipe Coverer Helper: Pipe Coverer Helper Present Accompanied by: Other Relationship Allergies adhesive tape [ADHESIVE TAPE] Allergy (Intermediate, Verified 11/16/23 10:31) RASH dolutegravir Allergy (Unknown, Verified 11/16/23 10:31) rash Medication List - Last Reconciled 11/16/23 by Lobito Villalpando MD albuterol sulfate 90 mcg/actuation 1 inh inhalation QID PRN albuterol sulfate 90 mcg/actuation 1 puff inhalation QID PRN amlodipine 5 mg PO QAM bisacodyl (Dulcolax (bisacodyl)) 10 mg (2 x 5 mg) PO BEDTIME 2 days calcium carbonate-vitamin D3 500 mg-5 mcg (200 unit) (Oyster Shell Calcium-Vitamin D3) 1 tab PO DAILY cimetidine 200 mg PO BEDTIME bhorhepslf-xhyzwebd-bhypqr ala 200-25-25 mg (Odefsey) 1 tab PO DAILY fluticasone propionate 220 mcg/actuation (Flovent HFA) 1 puff inhalation BID melatonin 1 tab PO BEDTIME PRN ondansetron 4 mg PO Q6-8H PRN peg 3350-electrolytes 236-22.74-6.74 -5.86 gram (Golytely) 240 mL PO Q10M 1 day prednisone 20 mg PO DAILY 12 days HPI HPI Comments History of Present Illness Details 63-year-old female patient presenting for a breast cancer follow-up examination. She is deaf and mute and presents with a marketing project coordinator who was able to communicate with her. She does not do well with video bumper straightener. She initially underwent a right breast lumpectomy on 03/08/[address] Butler which revealed ductal carcinoma in-situ. Margins were close there for a wider excision was performed on 03/12/2013 at which time margins were again closed and the patient has had evidence of invasive carcinoma as well. She subsequently returned to the OR on 05/14/2013 for right simple mastectomy with sentinel node biopsy. She was placed on tamoxifen which she completed in 2020. She continues to be followed by Dr. Wen. Her most recent mammogram and ultrasound of the left breast performed on 12/21/2022 revealed no mammographic evidence of malignancy (BI-RADS 1). She is scheduled for follow-up mammogram on 12/26/2023. She denies any current chest or breast symptoms in either breast. She is 2 para 2, and 1 of her children recently . [facility] Medical History Pre-op examination Well woman exam COVID-19 Dysplasia of cervix, low grade (KAREN 1) Right knee pain Asthma History of breast cancer Primary osteoarthritis of left knee Primary osteoarthritis of right knee Deafness HIV (human immunodeficiency virus infection) Surgical History Status post right breast lumpectomy History of tubal ligation Social History Household Members: None Housing: Apartment Are you a primary district manager primary care sales to a significant other at home: No Do you presently have visiting nurse or other home services: Yes Alcohol intake: unknown Patient Tobacco Use Status: Never used Tobacco service: No Current occupational status: disabled Current occupation: Right Handed Review of Systems Const All systems reviewed & are unremarkable except as noted in HPI and below Physical Exam Vital Signs: Last Vital Signs Pulse 75 11/16/23 10:39 BP 190/81 H 11/16/23 10:39 BMI result Body Mass Index 38.7 Const General: cooperative and no acute distress Nutritional Appearance: well nourished Orientation/consciousness: patient oriented x3 Limitations: no limitations HEENT Other: Deaf and mute Head: Yes normocephalic and Yes atraumatic Chest Other: Left breast: No skin change, no nipple retraction, no nipple discharge, no palpable mass, no enlarged lymph nodes. Right breast: Well-healed mastectomy scar with no palpable mass or enlarged lymph nodes appreciated, no skin changes appreciated. Chest/axillae images: 1. Mastectomy right breast Resp Effort & Inspection: normal respiratory effort, no audible wheezes, no cough and no respiratory distress Cardio Jugular venous distension: no JVD GI Inspection: Yes normal to inspection Skin Other: Warm, dry, no rash Neuro General: patient oriented x3 Extrem General: Yes no clubbing, cyanosis or edema Assessment & Plan Assessment & Plan (1) Ductal carcinoma in situ (DCIS) of right breast: Code(s): D05.11 - Intraductal carcinoma in situ of right breast Plan 63-year-old female patient former patient of Dr. Butler status post right mastectomy for ductal carcinoma in-situ with a single focus of invasive carcinoma. She was treated with tamoxifen for 5 years and generally feels well with no new breast concerns. Examination revealed a well-healed mastectomy scar of the right side with no suspicious findings or enlarged lymph nodes. Left breast also reveals no suspicious findings no enlarged lymph nodes. She is scheduled for a follow-up mammogram on 12/26/2023. I recommended follow-up examination in 6 months. She is welcome to call sooner for any new concerns. Coding Level of Care Code New Pt Level 4 (48015) Diagnoses Ductal carcinoma in situ (DCIS) of right breast D05.11
[2023-11-16 10:39] VITALS: BP 190/81; PULSE 75; BMI 38.7
== END 2023-11-16 10:43 | disposition home or self-care (01) ==
PROVIDERS: Referring Provider Internal Medicine Medical Oncology; Visit Provider Surgery
DX: Z85.3 Personal history of malignant neoplasm of breast (principal)
CPT/HCPCS: 99204

== ENCOUNTER → 2023-11-16 10:20 | Outpatient (BNVA) | payer MEDICAID, SELFPAY | PROVIDERS: Referring Provider Internal Medicine Medical Oncology; Visit Provider Surgery | DX: D05.11 Intraductal carcinoma in situ of right breast (principal); Z90.11 Acquired absence of right breast and nipple | CPT/HCPCS: 99202 ==

== ENCOUNTER 2023-12-04 10:45 | Outpatient (AMB) | payer MEDICAID, SELFPAY ==
--- NOTE | 2023-12-04 10:49 | A.OFFVIS_ITS ---
Intake Vital Signs 12/04/23 10:54 Height 5 ft Weight 200 lb BMI 39.1 BP 140/82 H Intake Visit Reasons: DIRECTOR DATABASE annual exam/DO NOT RS Certified Professional Midwife Required: Yes Certified Professional Midwife Language: Home Performance Laborer Name: Piper [id number] Information Interpreted: non-clinical & clinical Acidizer Water Well: Acidizer Water Well Present (Aidyn) Accompanied by: combustion analyst Allergies adhesive tape [ADHESIVE TAPE] Allergy (Intermediate, Verified 12/04/23 10:54) RASH dolutegravir Allergy (Unknown, Verified 12/04/23 10:54) rash Is last menstrual period known: No Post menopausal: Yes Patient : No HPI HPI Comments History of Present Illness Details Presenting for annual exam. No complaints. Last Pap/HPV was negative in 11/17 Last Mammogram was BI-RADS 1 in 12/18 A previous screening Colonoscopy [facility] Medical History Well woman exam Pre-op examination COVID-19 Dysplasia of cervix, low grade (KAREN 1) Right knee pain Asthma History of breast cancer Primary osteoarthritis of left knee Primary osteoarthritis of right knee Deafness HIV (human immunodeficiency virus infection) Surgical History Status post right breast lumpectomy History of tubal ligation Social History Household Members: None Housing: Apartment Are you a primary overnight caregiver to a significant other at home: No Do you presently have visiting nurse or other home services: Yes Alcohol intake: unknown Patient Tobacco Use Status: Never used Tobacco Patient : No service: No Current occupational status: disabled Current occupation: Right Handed Female Reproductive History Menstrual Age of Menarche: 89 control method: permanent sterilization Total pregnancies: 2 Full term: 2 Date of last pap smear: 11/09/22 (negative) Date of Mammogram: 12/21/22 Date of last Bone Density Screenin12/21/22 Review of Systems Const All systems reviewed & are unremarkable except as noted in HPI and below Card Reports as per HPI Resp Reports as per HPI GI Reports as per HPI and Reports no additional complaints Reports as per HPI Physical Exam Vital Signs: Last Vital Signs BP 140/82 H 12/04/23 10:54 BMI result Body Mass Index 39.1 Const General: cooperative, healthy appearing and comfortable Chest Chest palpation & inspection: normal inspection of the chest and normal palpation of entire chest wall Breast/axilla inspection: normal inspection of the axillae and Other (Right breast surgically absent, left within normal) Breast/axilla palpation: normal palpation of the breasts (Left breast within normal, right breast surgically absent), normal palpation of the axillae and no axillary lymphadenopathy Resp Effort & Inspection: normal respiratory effort Auscultation: clear to auscultation bilaterally Percussion: percussion normal Cardio Palpation: normal PMI Rate: regular rate Rhythm: regular rhythm Heart sounds: no murmurs and no rubs Peripheral pulses: Peripheral pulses 2+ throughout GI Inspection: Yes normal to inspection Palpation (GI): Soft to palpation, nontender, no guarding, not rigid and No hepatosplenomegaly present Percussion: Yes normal to percussion Auscultation: normal bowel sounds Rectal Exam - Female: deferred General: Yes bladder normal to palpation External Female Exam: No lesion Speculum Exam - Vagina: normal appearance of the vagina, normal palpation, normal vaginal discharge and not erythematous Speculum Exam - Cervix: normal appearance of the cervix and normal palpation Bimanual exam- vagina & uterus: normal bimanual exam, normal palpation, uterine size normal, bladder normal to palpation, consistency normal and normal palpation Bimanual Exam- Adnexa, other: normal adnexae, no masses and no tenderness Assessment & Plan Assessment & Plan (1) Well woman exam: Comment: HIV positive Code(s): Z01.419 - Encounter for gynecological examination (general) (routine) without abnormal findings Plan: Since the patient has HIV with a negative co testing 2017 and 2022, will co test in 1 year if negative will co test every 3 years Cotesting done. Mammogram ordered. Counseled the patient about the recommended dietary allowance of 1000 mg of Calcium & 600 IU of vitamin D. The patient was referred to GI for screening colonoscopy The patient was instructed to perform monthly self-breast exams and to schedule an annual exam in a year; All questions answered and the patient verbalized understanding. Instructed the patient to schedule annual exam in a year Orders: Orders MM tomosynthesis screening BI Today Z12.31 - Encounter for screening mammogram for malignant neoplasm of breast Referrals Gastroenterology Referral Z12.11 - Encounter for screening for malignant neoplasm of colon Coding Level of Care Code New Pt Prev Care 40-64y(67621) Diagnoses Well woman exam Z01.419
[2023-12-04 10:54] VITALS: BP 140/82; BMI 39.1
== END 2023-12-04 12:40 | disposition home or self-care (01) ==
PROVIDERS: Visit Provider Obstetrics & Gynecology
DX: Z01.419 Encounter for gynecological examination (general) (routine) without abnormal findings (principal)
CPT/HCPCS: 99396

== ENCOUNTER 2023-12-04 10:45 | Outpatient (REF) | payer MEDICAID, SELFPAY ==
[2023-12-08 21:08] LABS: HPV mRNA E6/E7 rflx Not Detected (Not Detected)
== END 2023-12-04 10:46 | disposition home or self-care (01) ==
LOC: HO.LNP 10:45
PROVIDERS: Visit Provider Obstetrics & Gynecology
DX: Z01.419 Encounter for gynecological examination (general) (routine) without abnormal findings (principal); Z11.51 Encounter for screening for human papillomavirus (HPV); B20 Human immunodeficiency virus [HIV] disease
CPT/HCPCS: 87624; 88142; 99396

== ENCOUNTER 2023-12-07 12:45 | Outpatient (REF) | payer MEDICAID, SELFPAY | END 2023-12-07 12:46 | disposition home or self-care (01) | LOC: HO.HAP 12:45 | PROVIDERS: Visit Provider Family Medicine | DX: Z46.1 Encounter for fitting and adjustment of hearing aid (principal); H90.3 Sensorineural hearing loss, bilateral | CPT/HCPCS: V5266 ==

== ENCOUNTER 2023-12-26 10:39 | Outpatient (REF) | payer MEDICAID, SELFPAY ==
--- NOTE | ~2023-12-26 | MM_ITS ---
EXAMINATION: MM SCREENING DIGITAL BREAST TOMOSYNTHESIS, LEFT CLINICAL INFORMATION: Screening. Asymptomatic. The patient is status post right mastectomy. COMPARISON: Mammography: This study is compared with prior exams dating back to 2018. TECHNIQUE: Digital breast tomosynthesis is performed in both the craniocaudal and mediolateral oblique views along with computer-aided detection (CAD). Synthesized 2D images are generated from the tomosynthesis. FINDINGS: There are scattered areas of fibroglandular density (ACR BI-RADS breast composition Category b). There are no significant masses, abnormal calcifications, or other abnormalities. MM/MM tomosynthesis screening LT IMPRESSION: No mammographic evidence of malignancy. ASSESSMENT: BI-RADS BI-RADS 1 - Negative RECOMMENDATION: Routine annual mammography screening. 1 year F/U This examination should not preclude the clinical evaluation of a suspicious palpable abnormality. This patient's information was entered into a reminder system with a target due date for their next mammogram.
== END 2023-12-26 10:40 | disposition home or self-care (01) ==
LOC: HO.MAMMO 10:39
PROVIDERS: PCP Internal Medicine Medical Oncology; Visit Provider Internal Medicine Medical Oncology
DX: Z12.31 Encounter for screening mammogram for malignant neoplasm of breast (principal)
CPT/HCPCS: 77063; 77067

== ENCOUNTER → 2023-12-26 11:00 | Outpatient (BNV) | payer MEDICAID, SELFPAY | PROVIDERS: PCP Internal Medicine Medical Oncology; Visit Provider Radiology Diagnostic Radiology | DX: Z12.31 Encounter for screening mammogram for malignant neoplasm of breast (principal) | CPT/HCPCS: 77063; 77067 ==

== ENCOUNTER 2023-12-31 14:20 | Emergency (ER) | payer MEDICAID, SELFPAY ==
[2023-12-31] VITALS (8 sets, daily range): BP systolic 130–171; BP diastolic 62–100; PULSE 59–75; RESP 16–18; TEMP 36.2–36.7; O2SAT 97–100; BMI 34.2
--- NOTE | 2023-12-31 15:03 | ED_ITS ---
HPI - Headache General Chief Complaint: Nausea/Vomiting/Diarrhea Stated Complaint: MIGRAINE W/ NAUSEA VOMITING X2 DAYS PER EMS Time Seen by Provider: 12/31/23 17:32 Source: patient Mode of arrival: ambulatory Limitations: language barrier History of Present Illness HPI Narrative: Patient a 63-year-old female, deaf and mute, according to her past records here she is able to read lips seemingly from [place] speaking, states unable to write. Some prior visits have mentioned using ASL signalling and communications engineer, I did attempt to communicate with signalling and communications engineer, patient's response to all questions are repeated chief complaint. The lumber stacker did report that it was not typical communication ASL, and they are not certain whether she fully understands ASL. Patient is endorsing headache, dizziness, nausea, vomiting and body aches for 4 days. Denies chest pain or shortness of breath. Related Data Home Medications ?Medication ?Instructions ?Recorded ?Confirmed emtricitabine 200 mg-rilpivirine 1 tab PO DAILY 06/16/20 11/16/23 25 mg-tenofovir alafenam 25 mg tablet (Isa) fluticasone propionate 220 1 puff inhalation BID 06/16/20 11/16/23 mcg/actuation HFA aerosol inhaler (Flovent HFA) melatonin 5 mg tablet 1 tab PO BEDTIME PRN insomnia 09/29/21 11/16/23 amlodipine 5 mg tablet 5 mg PO QAM 11/30/22 11/16/23 calcium carbonate 500 mg-vitamin 1 tab PO DAILY 11/30/22 11/16/23 D3 5 mcg (200 unit) tablet (Oyster Shell Calcium-Vitamin D3) Previous Rx's ?Medication ?Instructions ?Recorded albuterol sulfate 90 mcg/actuation 1 inh inhalation QID PRN shortness 01/31/22 aerosol inhaler of breath or wheezing #8.5 grams prednisone 20 mg tablet 20 mg PO DAILY 12 days #26 tabs 01/31/22 ondansetron 4 mg disintegrating 4 mg PO Q6-8H PRN nausea and 08/29/22 tablet vomiting #7 tabs albuterol sulfate 90 mcg/actuation 1 puff inhalation QID PRN 07/03/23 aerosol inhaler shortness of breath or wheezing #8.5 grams bisacodyl 5 mg tablet,delayed 10 mg (2 x 5 mg) PO BEDTIME 2 days 11/01/23 release (Dulcolax (bisacodyl)) #4 tabs cimetidine 200 mg tablet 200 mg PO BEDTIME #30 tabs 11/01/23 peg 3350-electrolytes 236 240 ml PO Q10M 1 day #4,000 mL 11/02/23 gram-22.74 gram-6.74 gram-5.86 gram solution (Golytely) meclizine 25 mg tablet 25 mg PO BID PRN dizziness #14 tabs 12/31/23 ondansetron 4 mg disintegrating 4 mg PO Q8H PRN nausea and 12/31/23 tablet vomiting #10 tabs Allergies Allergy/AdvReac Type Severity Reaction Status Date / Time adhesive tape [ADHESIVE TAPE] Allergy Intermediate RASH Verified 12/31/23 15:11 dolutegravir Allergy Unknown rash Verified 12/31/23 15:11 Review of Systems 2 Review of Systems: Yes all other systems are reviewed and are negative PMFSH Past Medical History Attestation statement: The following information was validated with the patient. Source: old records reviewed Medical History Well woman exam Pre-op examination COVID-19 Dysplasia of cervix, low grade (KAREN 1) Right knee pain Asthma History of breast cancer Primary osteoarthritis of left knee Primary osteoarthritis of right knee Deafness HIV (human immunodeficiency virus infection) Surgical History Status post right breast lumpectomy History of tubal ligation Social History Social History Household Members: None Housing: Apartment Are you a primary hiv/aids care nurse to a significant other at home: No Do you presently have visiting nurse or other home services: Yes Alcohol intake: unknown Patient Tobacco Use Status: Never used Tobacco Advance Directives: No Advance Directives Information Provided: Yes service: No Current occupational status: disabled Current occupation: Right Handed Physical Exam 2 Vital Signs: Vital Signs: Last Vital Signs Temp 98.0 F 12/31/23 18:14 Pulse 59 12/31/23 18:14 Resp 16 12/31/23 18:14 BP 171/93 H 12/31/23 18:14 Pulse Ox 98 12/31/23 18:14 O2 Del Method Room Air 12/31/23 18:14 BMI result Body Mass Index 34.2 Appearance: Alert.?Oriented to person, place and time. No acute distress.?Normal affect. Eyes: Pupils equal, round and reactive to light.? EOMI. No nystagmus. ENT: Pharynx normal.?? Neck: Normal inspection.? Neck supple.?? CVS: Heart sounds normal. Normal heart rate and rhythm.? Pulses normal.?? Respiratory: No respiratory distress.? Lung sounds clear to auscultation bilaterally?? Abdomen: Soft and non-tender. Normoactive bowel sounds. No pulsatile mass.??No CVA tenderness Skin: Skin warm and dry.? Normal skin color.? Extremities: No lower extremity edema.? No calf ttp? Neuro: Moves all extremities spontaneously. Sensation intact bilaterally. No focal neuro deficits. Ambulates with normal steady gait. Course Reevaluation(s) Reevaluation #1: Patient reports resolution of symptoms after taking Zofran and meclizine. Requesting discharge home, she is stable, comfortable discharge home. Advised to return back with any new or worsening symptoms or concerns Time: 19:20 Medications Administered Discontinued Medications Generic Name Dose Route Start Last Admin Trade Name Freq PRN Reason Stop Dose Admin Acetaminophen 975 mg 12/31/23 17:52 12/31/23 18:08 Acetaminophen 325 Mg Tablet PO 12/31/23 17:53 975 mg ONCE ONE Administration Meclizine HCl 25 mg 12/31/23 17:52 12/31/23 18:10 Meclizine Hcl 25 Mg Tablet PO 12/31/23 17:53 25 mg ONCE ONE Administration Ondansetron HCl 4 mg 12/31/23 17:52 12/31/23 18:10 Ondansetron Odt 4 Mg Tab.Rapdis TRANSLINGU 12/31/23 17:53 4 mg ONCE ONE Administration Medical Decision Making Medical Decision Making MDM Narrative: Patient is a 63-year-old female with past medical history of deafness, HIV, osteoarthritis, breast cancer s/p lumpectomy, asthma who presents to the emergency department for evaluation of headache dizziness nausea and vomiting for 4 days. Symptoms are episodic, severe intensity, nausea and vomiting, worse with rapid movement of the head during examination. No focal neurological deficits, no bidirectional nystagmus, no ataxia, no dysphagia to suggest a central cause. Denies palpitations or chest pain to suggest arrhythmia/ACS/dissection, no neck pain. Appears less consistent with CVA, ICH. She is without reports of shortness of breath, unlikely pulmonary embolism. Will obtain CBC to evaluate for leukocytosis/ anemia, CMP and lipase to evaluate for abnormal electrolytes /abnormal renal function/ abnormal hepatic/biliary function, EKG and troponin to evaluate for ischemia/ACS and Urinalysis. Concern for BP PV, will trial treatment with Zofran, acetaminophen, and meclizine Differential Diagnosis Differential Diagnoses: The differential diagnosis associated with the presentation includes (See narrative above) Admission/Observation Consideration of admission/observation: Escalation of care including admission/observation considered (See narrative above in course narrative for further detail) Lab Data MDM Lab Attestation statement: I reviewed the patient's lab results. CBC is without leukocytosis, anemia, or thrombocytopenia. No electrolyte derangement. No FATEMEH. Transaminases within normal range. High sensitive troponin below detectable limits. Viral panel is negative 12/31/23 15:44 12/31/23 15:44 Labs: Lab Results 12/31/23 12/31/23 12/31/23 Range/Units 15:43 15:44 18:55 WBC 4.8 (4.8-10.8) X10*3/uL RBC 4.44 (4.20-5.50) X10*6/uL Hgb 12.8 (12.0-16.0) g/dl Hct 38.9 (37.0-47.0) % MCV 87.6 (80.0-98.0) fL MCH 28.8 (27.0-33.0) pg MCHC 32.9 (31.0-35.0) g/dl RDW 12.5 (11.0-16.0) % Plt Count 260 (160-400) X10*3/uL MPV 9.2 L (9.4-12.3) fL Immature Gran % (Auto) 0.2 (0.0-0.4) % Neut % (Auto) 63.0 (45-73) % Lymph % (Auto) 28.4 (20-40) % [place] % (Auto) 6.8 (2-11) % Eos % (Auto) 1.4 (0-4) % Baso % (Auto) 0.2 (0-2) % Lymph # (Auto) 1.4 (1.2-4.9) X10*3/uL [place] # (Auto) 0.3 (0.1-1.2) X10*3/uL Eos # (Auto) 0.1 (0.0-0.4) X10*3/uL Baso # (Auto) 0.0 (0.0-0.2) X10*3/uL Abs Immat Gran (auto) 0.01 (0.00-0.03) X10*3/uL Absolute Neuts (auto) 3.0 (2.0-8.3) x10*3/uL Absolute Nucleated RBC 0.000 (0.0-0.012) X10*3/uL Nucleated RBC % (auto) 0.0 (0.0-0.2) /100WBC PT 10.8 L (11.1-13.3) SEC INR 0.9 (0.9-1.1) Sodium 141 (135-145) mmol/L Potassium 3.7 (3.3-5.1) mmol/L Chloride 107 (96-108) mmol/L Carbon Dioxide 25 (22-29) mmol/L Anion Gap 13 (12-20) BUN 10 (9-16) mg/dL Creatinine 0.74 (0.5-1.4) mg/dL Estim Creat Clear Calc 72.5 Estimated GFR > 60 Random Glucose 135 H (60-115) mg/dL Calcium 8.9 (8.4-10.2) mg/dL Magnesium 2.0 (1.6-2.6) mg/dL Total Bilirubin 0.2 (0.0-1.0) mg/dL AST 18 (5-31) U/L ALT 21 (0-31) U/L Alkaline Phosphatase 100 (39-117) U/L Troponin I High Sens < 2.7 (<3.5-17.0) ng/L Total Protein 7.1 (6.5-8.0) g/dL Albumin 4.0 (3.5-5.0) g/dL Lipase 31 (8-78) U/L Urine Color Yellow Urine Appearance Clear Urine pH 7.0 (5.0-9.0) Ur Specific Wil[place] 1.015 (1.005-1.025) Urine Protein Negative (Neg-Trace) mg/dL Urine Glucose (UA) Negative (Negative) mg/dL Urine Ketones Negative (Negative) mg/dL Urine Blood Negative (Negative) Urine Nitrite Negative (Negative) Ur Leukocyte Esterase Small (1+) H (Negative) Urine RBC 0-2 (0-2) /HPF Urine WBC 11-20 H (0-5) /HPF Ur Squamous Epith Cells 0-2 (0-2) /HPF Urine Bacteria None Seen (None Seen) Hyaline Casts 0-2 (0-2) /LPF Influenza Type A (PCR) NEGATIVE (Negative) Influenza Type B (PCR) NEGATIVE (Negative) RSV RNA Qual (PCR) NEGATIVE (Negative) SARS-CoV-2 RNA (RT-PCR) NEGATIVE (Negative) Independent Interpretation I performed an independent interpretation of an: EKG Interpretation: Rate:63 Rhythm:? Normal sinus rhythm [place]:? Normal Normal P waves.? Normal ADEN.?? Normal QRS complex.?? ST T wave :??No ST elevation, no ST depression, no T-wave inversion qTC:446 prior studies:? October 2023 The study has been interpreted contemporaneously by me. External Record Review External record reviewed: Outpatient record Discharge Plan Discharge Clinical Impression: Dizziness Patient Disposition: Home, Self-Care Instructions: Dizziness (ED) Additional Instructions: Take Meclizine as needed for dizziness and zofran as needed for nausea as prescribed. Return back to emergency department any new or worsening symptoms or concerns. Contact your primary care provider to arrange for a follow-up visit. Prescriptions: New meclizine 25 mg tablet 25 mg PO BID PRN (Reason: dizziness) Qty: 14 0RF ondansetron 4 mg tablet,disintegrating 4 mg PO Q8H PRN (Reason: nausea and vomiting) Qty: 10 0RF No Action peg 3350-electrolytes [Golytely] 236-22.74-6.74 -5.86 gram recon soln 240 ml PO Q10M 1 Days Qty: 4000 0RF Rx Instructions: until fecal effluent is clear; do not exceed a total volume of 2,000 mL melatonin 5 mg tablet 1 tab PO BEDTIME PRN (Reason: insomnia) prednisone 20 mg tablet 20 mg PO DAILY 12 Days Qty: 26 0RF Rx Instructions: Take 3 tablets for 5 days THEN; Take 2 tablets for 4 days THEN; Take 1 tablet for 3 days albuterol sulfate 90 mcg/actuation HFA aerosol inhaler 1 inh inhalation QID PRN (Reason: shortness of breath or wheezing) Qty: 8.5 0RF ondansetron 4 mg tablet,disintegrating 4 mg PO Q6-8H PRN (Reason: nausea and vomiting) Qty: 7 0RF Hold Instructions: Doctor's Order albuterol sulfate 90 mcg/actuation HFA aerosol inhaler 1 puff inhalation QID PRN (Reason: shortness of breath or wheezing) Qty: 8.5 0RF [place] 200-25-25 mg tablet 1 tab PO DAILY Rx Instructions: must administer with a meal/food Flovent HFA 220 mcg/actuation HFA aerosol inhaler 1 puff inhalation BID amlodipine 5 mg tablet 5 mg PO QAM calcium carbonate-vitamin D3 [Oyster Shell Calcium-Vit D3] 500 mg-5 mcg (200 unit) tablet 1 tab PO DAILY bisacodyl [Dulcolax (bisacodyl)] 5 mg tablet,delayed release (DR/EC) 10 mg PO BEDTIME 2 Days Qty: 4 0RF cimetidine 200 mg tablet 200 mg PO BEDTIME Qty: 30 6RF Referrals: Physician,Unknown J [Primary Care Provider] - Print Language: [place]itanian
--- NOTE | 2023-12-31 15:10 | ECG_ITS ---
Test Reason : N/V Blood Pressure : / mmHG Vent. Rate : 063 BPM Atrial Rate : 063 BPM P-R Int : 132 ms QRS Dur : 082 ms QT Int : 436 ms P-R-T Axes : 043 005 033 degrees QTc Int : 446 ms Normal sinus rhythm Normal ECG When compared with ECG of 06-NOV-2023 13:59, No significant change was found Referred By: Bridget Nelson Electronically Signed By:Kannan Crystal
--- NOTE | 2023-12-31 15:30 | MHC.EDTECH ---
@[id number] called patient for lab work. No Answer
[2023-12-31 15:48] LABS: MANUAL DIFF FLAG NO
[2023-12-31 15:51] LABS: Basophils Percent Auto 0.2 % (0-2); Eosinophils Absolute Auto 0.1 X10*3/uL (0.0-0.4); Eosinophils Percent Auto 1.4 % (0-4); Hematocrit 38.9 % (37.0-47.0); Hemoglobin 12.8 g/dl (12.0-16.0); Imm Gran Abs Auto 0.01 X10*3/uL (0.00-0.03); Imm Gran Pct Auto 0.2 % (0.0-0.4); Lymphocytes Absolute Auto 1.4 X10*3/uL (1.2-4.9); Lymphocytes Percent Auto 28.4 % (20-40); Mean Corpuscular HGB Conc 32.9 g/dl (31.0-35.0); Mean Corpuscular Hemoglobin 28.8 pg (27.0-33.0); Mean Corpuscular Volume 87.6 fL (80.0-98.0); Mean Platelet Volume 9.2 fL (9.4-12.3); Monocytes Absolute Auto 0.3 X10*3/uL (0.1-1.2); Monocytes Percent Auto 6.8 % (2-11); Platelet Count 260 X10*3/uL (160-400); Red Blood Count 4.44 X10*6/uL (4.20-5.50); Red Cell Distribution Width 12.5 % (11.0-16.0); White Blood Count 4.8 X10*3/uL (4.8-10.8)
[2023-12-31 15:58] LABS: INTERNATIONAL NORM RATIO 0.9 (0.9-1.1); Prothrombin Time 10.8 SEC (11.1-13.3)
[2023-12-31 16:06] LABS: Alanine Aminotransferase 21 U/L (0-31); Alkaline Phosphatase 100 U/L (39-117); Anion Gap 13 (12-20); Aspartate Amino Transferase 18 U/L (5-31); Bilirubin Total 0.2 mg/dL (0.0-1.0); Blood Urea Nitrogen 10 mg/dL (9-16); Calcium 8.9 mg/dL (8.4-10.2); Carbon Dioxide 25 mmol/L (22-29); Chloride 107 mmol/L (96-108); Creatinine Clr Calc Pharmacy 72.5; Estimated Glomerular Filt Rate > 60; Glucose Random 135 mg/dL (60-115); Lipase 31 U/L (8-78); Potassium 3.7 mmol/L (3.3-5.1); Sodium 141 mmol/L (135-145); Total Protein 7.1 g/dL (6.5-8.0)
[2023-12-31 16:22] LABS: Troponin-I High Sensitivity < 2.7 ng/L (<3.5-17.0)
[2023-12-31 16:35] LABS: Influenza A PCR NEGATIVE (Negative); Influenza B PCR NEGATIVE (Negative); Resp Syncy Virus RNA Qual PCR NEGATIVE (Negative); SARS COV2 PCR INHOUSE NEGATIVE (Negative)
--- NOTE | 2023-12-31 16:55 | MHC.EDTECH ---
Patient said she not able to give urine sample at this time.
[2023-12-31] MEDS: Acetaminophen 325 MG TABLET 975 MG PO (18:08)
[2023-12-31] MEDS: Ondansetron ODT 4 MG TAB.RAPDIS TRANSLINGU (18:10)
[2023-12-31] MEDS: Meclizine HCl 25 MG TABLET PO (18:10)
[2023-12-31 19:03] LABS: Appearance Urine Clear; Color Urine Yellow; Glucose Urine UA Negative (Negative); Leukocyte Esterase Urine Small (1+) (Negative); Nitrite Urine Negative (Negative); Specific Gravity - Urine 1.015 (1.005-1.025); UMIC TRIGGER UACC YES; Urine Blood Negative (Negative); Urine Ketones Negative (Negative); Urine Protein Negative (Neg-Trace)
[2023-12-31 19:07] LABS: Bacteria Urine None Seen (None Seen); Hyaline Casts Urine 0-2 /LPF (0-2); RBC Urine 0-2 /HPF (0-2); Squamous Epithelial Cell Urine 0-2 /HPF (0-2); UACC Culture Trigger YES
== END 2023-12-31 19:55 | disposition home or self-care (01) ==
PROVIDERS: Nurse Practitioner Family; Emergency Provider Emergency Medicine Emergency Medical Services
DX: R42 Dizziness and giddiness (principal); R82.71 Bacteriuria; Z21 Asymptomatic human immunodeficiency virus [HIV] infection status; H91.90 Unspecified hearing loss, unspecified ear
CPT/HCPCS: 0241U; 36415; 80053; 81001; 81003; 83690; 83735; 84484; 85025; 85610; 87086; 87088; 87186; 93005; 99284

== ENCOUNTER → 2023-12-31 15:10 | Outpatient (BNV) | payer MEDICAID, SELFPAY | PROVIDERS: Emergency Provider Emergency Medicine Emergency Medical Services; Visit Provider Internal Medicine Cardiovascular Disease | DX: R11.2 Nausea with vomiting, unspecified (principal) | CPT/HCPCS: 93010 ==

== ENCOUNTER 2024-01-24 12:17 | Outpatient (REF) | payer MEDICAID, SELFPAY ==
[2024-01-24 13:19] LABS: MANUAL DIFF FLAG NO
[2024-01-24 13:32] LABS: Basophils Percent Auto 0.5 % (0-2); Eosinophils Absolute Auto 0.1 X10*3/uL (0.0-0.4); Eosinophils Percent Auto 1.9 % (0-4); Hemoglobin 12.9 g/dl (12.0-16.0); Imm Gran Abs Auto 0.02 X10*3/uL (0.00-0.03); Imm Gran Pct Auto 0.4 % (0.0-0.4); Mean Corpuscular HGB Conc 32.3 g/dl (31.0-35.0); Mean Corpuscular Hemoglobin 28.2 pg (27.0-33.0); Mean Corpuscular Volume 87.3 fL (80.0-98.0); Mean Platelet Volume 9.5 fL (9.4-12.3); Monocytes Absolute Auto 0.4 X10*3/uL (0.1-1.2); Monocytes Percent Auto 7.1 % (2-11); Neutrophils Absolute Auto 3.1 x10*3/uL (2.0-8.3); Neutrophils Percent Auto 55.1 % (45-73); Platelet Count 280 X10*3/uL (160-400); Red Blood Count 4.58 X10*6/uL (4.20-5.50); Red Cell Distribution Width 12.7 % (11.0-16.0); White Blood Count 5.7 X10*3/uL (4.8-10.8)
[2024-01-26 21:24] LABS: Lyme Abs Screen <0.90 index
== END 2024-01-24 12:18 | disposition home or self-care (01) ==
LOC: HO.HHCL 12:17
PROVIDERS: Visit Provider Nurse Practitioner Family
DX: L03.116 Cellulitis of left lower limb (principal)
CPT/HCPCS: 36415; 85025; 86617; 86618

== ENCOUNTER 2024-01-29 11:21 | Outpatient (REF) | payer MEDICAID, SELFPAY ==
[2024-01-29 13:31] LABS: Bacterial Vaginosis PCR NEGATIVE (Negative); Candida Group PCR DETECTED (Not Detect); Candida glab krusei PCR NOT DETECTED (Not Detect); Trichomonas vaginalis PCR NOT DETECTED (Not Detect)
== END 2024-01-29 11:22 | disposition home or self-care (01) ==
LOC: HO.LNP 11:21
PROVIDERS: Visit Provider Student in an Organized Health Care Education/Training Program
DX: B20 Human immunodeficiency virus [HIV] disease (principal)
CPT/HCPCS: 0352U; 88112

== ENCOUNTER 2024-01-30 11:32 | Emergency (ER) | payer MEDICAID, SELFPAY ==
--- NOTE | ~2024-01-30 | XR_ITS ---
EXAMINATION: XR CHEST CLINICAL INFORMATION: Rule out infection. COMPARISON: 11/06/2023 and 11/06/2017 TECHNIQUE: PA and lateral views of the chest were obtained. FINDINGS: Borderline low lung volumes and mild atelectasis at the bases. No consolidation, pneumothorax, or pleural effusion. A 1.9 cm lung nodule in the medial aspect of the right lower lobe is better seen on the lateral view and not appreciably changed in size as compared to the prior radiographs dating back to 11/06/2017. Cardiac and mediastinal contours are normal. No acute osseous findings. Degenerative disc disease is present thoracic spine. XR/XR chest 2V IMPRESSION: No acute pulmonary findings. No significant change in the size of 1.8 cm right middle lobe lung nodule since 11/06/2017.
[2024-01-30 11:36] VITALS: BP 154/64; PULSE 104; RESP 20; TEMP 38.2; O2SAT 96; BMI 38.4
--- NOTE | 2024-01-30 11:36 | ED.GENADULT ---
HPI - General Adult General Chief complaint: Abdominal Pain Stated complaint: Abd pain/vomiting Related Data Home Medications ?Medication ?Instructions ?Recorded ?Confirmed emtricitabine 200 mg-rilpivirine 1 tab PO DAILY 06/16/20 11/16/23 25 mg-tenofovir alafenam 25 mg tablet (Dinorasey) fluticasone propionate 220 1 puff inhalation BID 06/16/20 11/16/23 mcg/actuation HFA aerosol inhaler (Flovent HFA) melatonin 5 mg tablet 1 tab PO BEDTIME PRN insomnia 09/29/21 11/16/23 amlodipine 5 mg tablet 5 mg PO QAM 11/30/22 11/16/23 calcium carbonate 500 mg-vitamin 1 tab PO DAILY 11/30/22 11/16/23 D3 5 mcg (200 unit) tablet (Oyster Shell Calcium-Vitamin D3) Previous Rx's ?Medication ?Instructions ?Recorded albuterol sulfate 90 mcg/actuation 1 inh inhalation QID PRN shortness 01/31/22 aerosol inhaler of breath or wheezing #8.5 grams prednisone 20 mg tablet 20 mg PO DAILY 12 days #26 tabs 01/31/22 ondansetron 4 mg disintegrating 4 mg PO Q6-8H PRN nausea and 08/29/22 tablet vomiting #7 tabs albuterol sulfate 90 mcg/actuation 1 puff inhalation QID PRN 07/03/23 aerosol inhaler shortness of breath or wheezing #8.5 grams bisacodyl 5 mg tablet,delayed 10 mg (2 x 5 mg) PO BEDTIME 2 days 11/01/23 release (Dulcolax (bisacodyl)) #4 tabs cimetidine 200 mg tablet 200 mg PO BEDTIME #30 tabs 11/01/23 peg 3350-electrolytes 236 240 ml PO Q10M 1 day #4,000 mL 11/02/23 gram-22.74 gram-6.74 gram-5.86 gram solution (Golytely) meclizine 25 mg tablet 25 mg PO BID PRN dizziness #14 tabs 12/31/23 ondansetron 4 mg disintegrating 4 mg PO Q8H PRN nausea and 12/31/23 tablet vomiting #10 tabs cefuroxime axetil 250 mg tablet 250 mg PO BID #14 tabs 01/05/24 Allergies Allergy/AdvReac Type Severity Reaction Status Date / Time adhesive tape [ADHESIVE TAPE] Allergy Intermediate RASH Verified 01/30/24 11:37 dolutegravir Allergy Unknown rash Verified 01/30/24 11:37 [facility] Past Medical History Medical History Well woman exam Pre-op examination COVID-19 Dysplasia of cervix, low grade (KAREN 1) Right knee pain Asthma History of breast cancer Primary osteoarthritis of left knee Primary osteoarthritis of right knee Deafness HIV (human immunodeficiency virus infection) Surgical History Status post right breast lumpectomy History of tubal ligation Social History Social History Household Members: None Housing: Apartment Are you a primary child caregiver to a significant other at home: No Do you presently have visiting nurse or other home services: Yes Alcohol intake: unknown Patient Tobacco Use Status: Never used Tobacco Advance Directives: No Do you have a plan to hurt others: No Plan service: No Current occupational status: disabled Current occupation: Right Handed Physical Exam ED Vital Signs: Vital Signs - 24 hr 01/30/24 11:36 Temperature 100.8 F H Pulse Rate 104 H Respiratory Rate 20 Blood Pressure 154/64 H Pulse Oximetry 96 Oxygen Delivery Method Room Air BMI result Body Mass Index 38.4 Course Course Course Narrative: This is a Rapid Medical Examination (RME) performed by Len Jackson PA-C in triage. Full HPI, ROS, assessment and treatment plan per primary provider in the Main ED. 63 yo female who is deaf and mute, can read lips in [place], hx of asthma, here for eval of nausea, vomiting, epigastric abd pain after taking keflex at 0400 this morning. Patient recently noted to have UTI on 01/23/24. Keflex sent to pharmacy. took a kefelx yesterday at 0400 and has been vomiting since. admits to associated headache. in triage, febrile and tachy to 104. no active vomiting. minimal inspiratory wheezes. no respiratory distress. Plan: labs, UA, CXR ordered. zofran and tylenol given. Reevaluation(s) Reevaluation #1: At 1256 while having her blood drawn she mentions to aircraft launch and recovery technician that she has an appointment that she needs to leave for at 1300. Patient left the ED without completing treatment. Medications Administered Discontinued Medications Generic Name Dose Route Start Last Admin Trade Name Nelson PRN Reason Stop Dose Admin Acetaminophen 975 mg 01/30/24 11:47 01/30/24 11:51 Acetaminophen 325 Mg Tablet PO 01/30/24 11:48 975 mg ONCE ONE Administration Ondansetron HCl 4 mg 01/30/24 11:39 01/30/24 11:47 Ondansetron Odt 4 Mg Tab.Rapdis TRANSLINGU 01/30/24 11:40 4 mg ONCE ONE Administration Medical Decision Making Lab Data 01/30/24 11:59 01/30/24 11:59 Labs: Lab Results 01/30/24 01/30/24 Range/Units 11:59 12:58 WBC 10.1 (4.8-10.8) X10*3/uL RBC 4.93 (4.20-5.50) X10*6/uL Hgb 14.0 (12.0-16.0) g/dl Hct 42.2 (37.0-47.0) % MCV 85.6 (80.0-98.0) fL MCH 28.4 (27.0-33.0) pg MCHC 33.2 (31.0-35.0) g/dl RDW 12.5 (11.0-16.0) % Plt Count 292 (160-400) X10*3/uL MPV 9.4 (9.4-12.3) fL Immature Gran % (Auto) 0.3 (0.0-0.4) % Neut % (Auto) 77.3 H (45-73) % Lymph % (Auto) 16.1 L (20-40) % Desha % (Auto) 5.8 (2-11) % Eos % (Auto) 0.3 (0-4) % Baso % (Auto) 0.2 (0-2) % Lymph # (Auto) 1.6 (1.2-4.9) X10*3/uL Desha # (Auto) 0.6 (0.1-1.2) X10*3/uL Eos # (Auto) 0.0 (0.0-0.4) X10*3/uL Baso # (Auto) 0.0 (0.0-0.2) X10*3/uL Abs Immat Gran (auto) 0.03 (0.00-0.03) X10*3/uL Absolute Neuts (auto) 7.8 (2.0-8.3) x10*3/uL Absolute Nucleated RBC 0.000 (0.0-0.012) X10*3/uL Nucleated RBC % (auto) 0.0 (0.0-0.2) /100WBC Sodium 137 (135-145) mmol/L Potassium 3.6 (3.3-5.1) mmol/L Chloride 104 (96-108) mmol/L Carbon Dioxide 22 (22-29) mmol/L Anion Gap 15 (12-20) BUN 10 (9-16) mg/dL Creatinine 0.76 (0.5-1.4) mg/dL Estim Creat Clear Calc 72.2 Estimated GFR > 60 Random Glucose 134 H (60-115) mg/dL Calcium 9.5 D (8.4-10.2) mg/dL Magnesium 1.9 (1.6-2.6) mg/dL Total Bilirubin 0.8 (0.0-1.0) mg/dL AST 19 (5-31) U/L ALT 17 (0-31) U/L Alkaline Phosphatase 86 (39-117) U/L Troponin I High Sens 2.7 (<3.5-17.0) ng/L Total Protein 7.8 (6.5-8.0) g/dL Albumin 4.4 (3.5-5.0) g/dL Lipase 20 (8-78) U/L Urine Color Dark Yellow Urine Appearance Clear Urine pH 6.5 (5.0-9.0) Ur Specific [place] 1.025 (1.005-1.025) Urine Protein Trace (Neg-Trace) mg/dL Urine Glucose (UA) Negative (Negative) mg/dL Urine Ketones Trace (Negative) mg/dL Urine Blood Negative (Negative) Urine Nitrite Negative (Negative) Ur Leukocyte Esterase Negative (Negative) Influenza Type A (PCR) NEGATIVE (Negative) Influenza Type B (PCR) NEGATIVE (Negative) RSV RNA Qual (PCR) NEGATIVE (Negative) SARS-CoV-2 RNA (RT-PCR) NEGATIVE (Negative) Discharge Plan Discharge Clinical Impression: Abdominal pain Patient Disposition: Left W/O Completing Treatment Prescriptions: No Action peg 3350-electrolytes [Golytely] 236-22.74-6.74 -5.86 gram recon soln 240 ml PO Q10M 1 Days Qty: 4000 0RF Rx Instructions: until fecal effluent is clear; do not exceed a total volume of 2,000 mL melatonin 5 mg tablet 1 tab PO BEDTIME PRN (Reason: insomnia) prednisone 20 mg tablet 20 mg PO DAILY 12 Days Qty: 26 0RF Rx Instructions: Take 3 tablets for 5 days THEN; Take 2 tablets for 4 days THEN; Take 1 tablet for 3 days albuterol sulfate 90 mcg/actuation HFA aerosol inhaler 1 inh inhalation QID PRN (Reason: shortness of breath or wheezing) Qty: 8.5 0RF ondansetron 4 mg tablet,disintegrating 4 mg PO Q6-8H PRN (Reason: nausea and vomiting) Qty: 7 0RF Hold Instructions: Doctor's Order meclizine 25 mg tablet 25 mg PO BID PRN (Reason: dizziness) Qty: 14 0RF ondansetron 4 mg tablet,disintegrating 4 mg PO Q8H PRN (Reason: nausea and vomiting) Qty: 10 0RF cefuroxime axetil 250 mg tablet 250 mg PO BID Qty: 14 0RF albuterol sulfate 90 mcg/actuation HFA aerosol inhaler 1 puff inhalation QID PRN (Reason: shortness of breath or wheezing) Qty: 8.5 0RF Odefsey 200-25-25 mg tablet 1 tab PO DAILY Rx Instructions: must administer with a meal/food Flovent HFA 220 mcg/actuation HFA aerosol inhaler 1 puff inhalation BID amlodipine 5 mg tablet 5 mg PO QAM calcium carbonate-vitamin D3 [Oyster Shell Calcium-Vit D3] 500 mg-5 mcg (200 unit) tablet 1 tab PO DAILY bisacodyl [Dulcolax (bisacodyl)] 5 mg tablet,delayed release (DR/EC) 10 mg PO BEDTIME 2 Days Qty: 4 0RF cimetidine 200 mg tablet 200 mg PO BEDTIME Qty: 30 6RF Interventions: LWBS Worksheet Last Done: 01/30/24 17:00 Discharge Date/Time: 01/30/24 13:00 Print Language: Bangladeshi
[2024-01-30] MEDS: Ondansetron ODT 4 MG TAB.RAPDIS TRANSLINGU (11:47)
[2024-01-30] MEDS: Acetaminophen 325 MG TABLET 975 MG PO (11:51)
[2024-01-30 12:17] LABS: MANUAL DIFF FLAG NO
[2024-01-30 12:19] LABS: Basophils Percent Auto 0.2 % (0-2); Eosinophils Percent Auto 0.3 % (0-4); Hematocrit 42.2 % (37.0-47.0); Imm Gran Abs Auto 0.03 X10*3/uL (0.00-0.03); Imm Gran Pct Auto 0.3 % (0.0-0.4); Lymphocytes Absolute Auto 1.6 X10*3/uL (1.2-4.9); Lymphocytes Percent Auto 16.1 % (20-40); Mean Corpuscular HGB Conc 33.2 g/dl (31.0-35.0); Mean Corpuscular Hemoglobin 28.4 pg (27.0-33.0); Mean Corpuscular Volume 85.6 fL (80.0-98.0); Mean Platelet Volume 9.4 fL (9.4-12.3); Monocytes Absolute Auto 0.6 X10*3/uL (0.1-1.2); Monocytes Percent Auto 5.8 % (2-11); Neutrophils Absolute Auto 7.8 x10*3/uL (2.0-8.3); Neutrophils Percent Auto 77.3 % (45-73); Platelet Count 292 X10*3/uL (160-400); Red Blood Count 4.93 X10*6/uL (4.20-5.50); Red Cell Distribution Width 12.5 % (11.0-16.0); White Blood Count 10.1 X10*3/uL (4.8-10.8)
[2024-01-30 12:37] LABS: Alanine Aminotransferase 17 U/L (0-31); Albumin Level 4.4 g/dL (3.5-5.0); Alkaline Phosphatase 86 U/L (39-117); Anion Gap 15 (12-20); Aspartate Amino Transferase 19 U/L (5-31); Bilirubin Total 0.8 mg/dL (0.0-1.0); Blood Urea Nitrogen 10 mg/dL (9-16); Calcium 9.5 mg/dL (8.4-10.2); Carbon Dioxide 22 mmol/L (22-29); Chloride 104 mmol/L (96-108); Creatinine Clr Calc Pharmacy 72.2; Estimated Glomerular Filt Rate > 60; Glucose Random 134 mg/dL (60-115); Lipase 20 U/L (8-78); Magnesium 1.9 mg/dL (1.6-2.6); Potassium 3.6 mmol/L (3.3-5.1); Sodium 137 mmol/L (135-145); Total Protein 7.8 g/dL (6.5-8.0)
[2024-01-30 12:39] LABS: Troponin-I High Sensitivity 2.7 ng/L (<3.5-17.0)
[2024-01-30 13:08] LABS: Influenza A PCR NEGATIVE (Negative); Influenza B PCR NEGATIVE (Negative); Resp Syncy Virus RNA Qual PCR NEGATIVE (Negative); SARS COV2 PCR INHOUSE NEGATIVE (Negative)
[2024-01-30 13:11] LABS: Appearance Urine Clear; Color Urine Dark Yellow; Glucose Urine UA Negative (Negative); Leukocyte Esterase Urine Negative (Negative); Nitrite Urine Negative (Negative); PH 6.5 (5.0-9.0); Specific Gravity - Urine 1.025 (1.005-1.025); Urine Blood Negative (Negative); Urine Ketones Trace mg/dL (Negative); Urine Protein Trace mg/dL (Neg-Trace)
== END 2024-01-30 13:00 | disposition left against medical advice (07) ==
PROVIDERS: Physician Assistant Medical; Emergency Provider Emergency Medicine; PCP Family Medicine
DX: R10.13 Epigastric pain (principal); N39.0 Urinary tract infection, site not specified
CPT/HCPCS: 0241U; 71046; 80053; 81003; 83690; 83735; 84484; 85025; 99283

== ENCOUNTER 2024-02-02 10:33 | Outpatient (AMB) | payer MEDICAID, SELFPAY ==
[2024-02-02 10:39] VITALS: BP 148/72; PULSE 84; BMI 38.3
--- NOTE | 2024-02-02 10:39 | A.OFFVIS_ITS ---
Vital Signs 02/02/24 10:39 Height 4 ft 11 in Weight 189 lb 9.561 oz BMI 38.3 BP 148/72 H Blood Pressure Location Lt brachial Position Sitting Pulse 84 Intake Visit Reasons: 3 month follow up GERD Intake Note: Patient here for 3m f/u GERD. Was recently seen at ER on 01-30-24 for abdominal pain. Patient c/o: diarrhea, nausea. Blood Bank Technologist Required: Yes Accompanied by: BOOK ILLUSTRATOR Ashly Allergies adhesive tape [ADHESIVE TAPE] Allergy (Intermediate, Verified 02/02/24 10:45) RASH dolutegravir Allergy (Unknown, Verified 02/02/24 10:45) rash HPI HPI 3 month follow up GERD: Details: Assessment & Plan (1) H. pylori infection: Code(s): A04.8 - Other specified bacterial intestinal infections (2) GERD (gastroesophageal reflux disease): Code(s): K21.9 - Gastro-esophageal reflux disease without esophagitis (3) Upper abdominal pain: Code(s): R10.10 - Upper abdominal pain, unspecified Plan [place]/ASL #ONCOLOGY COORDINATOR translates She still has upper abd pain, but her ONCOLOGY COORDINATOR says the pt refused to do the repeat HP test - apparently she has difficulty understanding. I will order and EGD/colonoscopy for her to evaluate more thoroughly. Her ONCOLOGY COORDINATOR also says that she tends to eat very poorly a lot of junk food and this could be contributing along with her pension for drinking a lot of soda. Apparently she switched from coke to sprite but the citric acid in this still causes concerned but the patient has difficulty understanding this. I print a GERD diet list in French for them using OB GYN PHYSICIAN ASSISTANT. There are no known prior problems with anesthesia or sedation. Her asthma is a variable control as she has trouble walking but she is currently seeing a long doctor for this. They deny any cardiac problems. She has HIV which is controlled on anti-retroviral medications. She does not know her family history so we do not know about the family history of colon cancer stomach cancer. Again, she completed Levaquin amoxicillin therapy for H pylori but we have been unable to confirm eradication. There are quite a few medications that would be contraindicated with her HIV medications. Her diarrhea has resolved. ROV 3 month. Orders: Orders EGD/[place] [facility]bo - GI Use Only 11/01/23 A04.8 - Other specified bacterial intestinal infections, K21.9 - Gastro-esophageal reflux disease without esophagitis, R10.10 - Upper abdominal pain, unspecified Medications: New bisacodyl (Dulcolax (bisacodyl)) 10 mg (2 x 5 mg) PO BEDTIME 2 days 4 tabs 0RF Refilled cimetidine 200 mg PO BEDTIME 30 tabs 6RF LABS: EGD/ COLONOSCOPY SCHEDULED FOR 02/15/2024 BIOPSY TODAY'S VISIT [place]/ASL #ONCOLOGY COORDINATOR translates per pt request She developed epigaastric pain and N/V/D that slowly started getting worse and worse until she presented to the ER for evaluation. She LWT and no imaging. The ONCOLOGY COORDINATOR feels that it is the patient's poor diet ie. she will eat potato chips and soda for breakfast. Has EGD/colonoscopy upcoming and appt with wa 03/06. STOP KEFLEX as this may be a c/f. Start carafate liquid, get x-ray of the abdomen and CT. Keep 03/06 ROV. [facility] Medical History Well woman exam Pre-op examination COVID-19 Dysplasia of cervix, low grade (KAREN 1) Right knee pain Asthma History of breast cancer Primary osteoarthritis of left knee Primary osteoarthritis of right knee Deafness HIV (human immunodeficiency virus infection) Surgical History Status post right breast lumpectomy History of tubal ligation Social History Household Members: None Housing: Apartment Are you a primary pediatric acute care unit nurse to a significant other at home: No Do you presently have visiting nurse or other home services: Yes Alcohol intake: unknown Patient Tobacco Use Status: Never used Tobacco service: No Current occupational status: disabled Current occupation: Right Handed Female Reproductive History Menstrual Age of Menarche: 89 Review of Systems Const Denies fatigue, Denies fever(s), Denies night sweats, Reports poor appetite and Denies weight loss Eyes Details: Glasses Reports requires corrective lenses ENT Denies Normal hearing present, Denies dysphagia, Denies odynophagia, Denies throat swelling and Denies tongue swelling Card Reports no additional complaints Resp Reports no additional complaints GI Details: Reports abdominal pain, Denies melena, Reports bloating, Denies hematochezia, Denies constipation, Denies GI cramping, Denies dysphagia, Denies excessive flatus, Denies early satiety, Reports heartburn, Denies diarrhea, Reports nausea, Denies odynophagia, Denies vomiting and Denies hematemesis Musc Reports abnormal gait, Reports back pain and Reports arthralgias Skin/Breast Denies pruritus, Denies lesions, Denies rash and Denies jaundice Neuro Denies Normal hearing present, Denies Abnormal speech present and Reports abnormal gait Endo Denies fatigue Aller/Immun Denies throat swelling and Denies tongue swelling Physical Exam Vital Signs: Last Vital Signs Pulse 84 02/02/24 10:39 BP 148/72 H 02/02/24 10:39 BMI result Body Mass Index 38.3 Const General: cooperative, well developed, in distress mild and well groomed Nutritional Appearance: well nourished and obese Orientation/consciousness: oriented to person, oriented to place and oriented to time Limitations: language barrier, ambulation with walker and other limitations HEENT Head: Yes normocephalic and Yes atraumatic Eyes General: appearance normal, both eyes and all related structures Pupils: Equal, round and reactive pupils present Neck Neck: Yes normal visual inspection and Yes no lymphadenopathy Thyroid: Thyroid normal Resp Effort & Inspection: normal respiratory effort and able to speak in complete sentences Auscultation: clear to auscultation bilaterally Cardio Rate: regular rate Rhythm: regular rhythm Heart sounds: Normal, physiologic split S2 sound present Peripheral pulses: radial pulses present and posterior tibial pulses present GI Inspection: No distended, No Abdominal panniculus present and Yes obesity Palpation (GI): Soft to palpation, Tenderness to palpation present (GI) in the epigastrum, no guarding, not rigid and No hepatosplenomegaly present Percussion: Yes normal to percussion Auscultation: normal bowel sounds Rectal Exam - Female: deferred Skin General skin exam: no rashes or lesions noted, turgor normal, skin not dry, no jaundice, No spider nevi and no striae Rashes: no rashes Nails: normal Neuro General: oriented to person, oriented to place and oriented to time Cranial nerves: Yes Equal, round and reactive pupils present and No Normal hearing present Speech: No Abnormal speech present Extrem General: Yes normal to inspection, No clubbing, No cyanosis and No edema Psych Appearance: grossly normal and well kempt Mental Status: other Speech and movement: Mute speech present Affect: Labile affect present Attitude: cooperative Thought process: Circumstantial thought process present, not confabulating and Impoverished thought process present Thought content: Normal thought content present Insight: Poor insight present (Psych) Judgement: Poor judgement present (Psych) Assessment & Plan Assessment & Plan (1) Abdominal pain: Code(s): R10.9 - Unspecified abdominal pain Category: Medical Plan [place] [employer]/ASL #ONCOLOGY COORDINATOR translates per pt request She developed epigaastric pain and N/V/D that slowly started getting worse and worse until she presented to the ER for evaluation. She LWT and no imaging. The ONCOLOGY COORDINATOR feels that it is the patient's poor diet ie. she will eat potato chips and soda for breakfast. Has EGD/colonoscopy upcoming and appt with me 03/06. STOP KEFLEX as this may be a c/f. Start carafate liquid, get x-ray of the abdomen and CT. Keep 03/06 ROV. EGD/ COLONOSCOPY SCHEDULED FOR 02/15/2024 BIOPSY Orders: Orders CT abdomen pelvis w IV con Today R10.9 - Unspecified abdominal pain XR abdomen w decubitus Today R10.9 - Unspecified abdominal pain Medications: New sucralfate (Carafate) 10 mL PO BID 1,000 mL 3RF Discontinued cefuroxime axetil Discontinued Reason: Doctor's Order 250 mg PO BID 14 tabs 0RF Coding Level of Care Code Est Pt Level 4 (06920) Diagnoses Abdominal pain R10.9
== END 2024-02-02 11:31 | disposition home or self-care (01) ==
PROVIDERS: Visit Provider Nurse Practitioner
DX: R10.9 Unspecified abdominal pain (principal)
CPT/HCPCS: 99214

== ENCOUNTER → 2024-02-02 10:33 | Outpatient (BNVA) | payer MEDICAID, SELFPAY | PROVIDERS: Visit Provider Nurse Practitioner | DX: R10.9 Unspecified abdominal pain (principal) | CPT/HCPCS: 99212 ==

== ENCOUNTER 2024-03-11 10:13 | Outpatient (AMB) | payer MEDICAID, SELFPAY ==
--- NOTE | 2024-03-11 10:17 | A.OFFVIS_ITS ---
Vital Signs 03/11/24 10:32 Height 4 ft 11 in Weight 189 lb BMI 38.2 Intake Visit Reasons: INJ- RT knee injection - Last inj 08/22/23 Intake Note: Aiyana 63 year old female who presents today for a follow up of right knee, last injection on 08/22/23. Patient reports her last injection provided her with relief and is requesting to repeat injection. Allergies adhesive tape [ADHESIVE TAPE] Allergy (Intermediate, Verified 03/11/24 10:32) RASH dolutegravir Allergy (Unknown, Verified 03/11/24 10:32) rash HPI HPI INJ- RT knee injection - Last inj 08/22/23: Details: 63-year-old female who returns to the office today for a follow-up of right knee pain. She had her last injection on 08/22/23 which provided her relief. She would like to repeat the injection. She does not have a history of diabetes. [facility] Medical History Well woman exam Pre-op examination COVID-19 Dysplasia of cervix, low grade (KAREN 1) Right knee pain Asthma History of breast cancer Primary osteoarthritis of left knee Primary osteoarthritis of right knee Deafness HIV (human immunodeficiency virus infection) Surgical History Status post right breast lumpectomy History of tubal ligation Social History Household Members: None Housing: Apartment Are you a primary school childcare attendant to a significant other at home: No Do you presently have visiting nurse or other home services: Yes Alcohol intake: unknown Patient Tobacco Use Status: Never used Tobacco service: No Current occupational status: disabled Current occupation: Right Handed Female Reproductive History Menstrual Age of Menarche: 89 Review of Systems Const All systems reviewed & are unremarkable except as noted in HPI and below Physical Exam Vital Signs: BMI result Body Mass Index 38.2 Extrem Other: Right knee skin intact, no erythema or joint effusion. Varus Alignment . Tenderness along the medial joint line. ROM full with crepitus. Negative steinmans. No ligamentous laxity. NVI. Office Procedures Joint Injection/Drain Joint Injection/Drain Primary Site: right knee Prep: site was prepped using aseptic technique, ethochloride spray was applied and injection warnings given Injected: 80 mg of, DepoMedrol, with 8 mL of, 1% plain lidocaine and in the joint Approach Used: anterolateral Procedure: The patient tolerated the procedure well and there was some relief with the local anesthesia Coding 72084 - Glenohumeral/Tronchanteric Bursa/Intraarticular Procedure code (CPT) selection complete Results Reviewed Results Reviewed: Xrays were obtained in the office today and personally reviewed by me of the right knee show end stage oa Assessment & Plan Assessment & Plan (1) Tricompartment osteoarthritis of right knee: Code(s): M17.11 - Unilateral primary osteoarthritis, right knee Category: Medical Plan We discussed options today, which include steroid injection. The patient did consent to move forward with the right knee injection, which was tolerated well. I recommended rest, ice, and elevation and OTC anti-inflammatories as needed for discomfort. If symptoms persist or worsen over the next 6-8 weeks, patient will contact the office, otherwise follow-up as needed. ? Orders: Orders XR knee RT 3V Today M17.11 - Unilateral primary osteoarthritis, right knee Patient Instructions: Scribed for Melida Solomon PA-C, by Trenton Fox medical insurance coding specialist, on 03/11/2024 at 10:00 AM EST.? I, Melida Solomon PA-C, have personally reviewed and agree with the information entered by the scribe. Coding Level of Care Code Est Pt Level 3 (41740) Diagnoses Tricompartment osteoarthritis of right knee M17.11 CPT Codes Coding - Joint 7: 31396 - Glenohumeral/Tronchanteric Bursa/Intraarticular ([id number])
[2024-03-11 10:32] VITALS: BMI 38.2
== END 2024-03-11 12:03 | disposition home or self-care (01) ==
PROVIDERS: Visit Provider Physician Assistant
DX: M17.11 Unilateral primary osteoarthritis, right knee (principal)
CPT/HCPCS: 20610

== ENCOUNTER 2024-03-11 10:13 | Outpatient (REF) | payer MEDICAID, SELFPAY ==
--- NOTE | ~2024-03-11 | XR_ITS ---
EXAMINATION: XR KNEE, RIGHT CLINICAL INFORMATION: Unilateral primary osteoarthritis right knee. COMPARISON: August 29, 2022 TECHNIQUE: AP standing view of bilateral knees. [place] and lateral views of the right knee. FINDINGS: RIGHT KNEE: Diffuse demineralization. Moderate joint effusion. Marked narrowing of the medial compartment with medial marginal osteophytes. Moderate degenerative changes with small spurs in the lateral and patellofemoral compartments. AP standing view of the left knee demonstrates marked narrowing of the medial compartment with medial and lateral marginal osteophytes. XR/XR knee RT 3V IMPRESSION: Marked degenerative changes in the bilateral knees.
== END 2024-03-11 10:14 | disposition home or self-care (01) ==
LOC: HO.HOSX 10:13
PROVIDERS: Visit Provider Physician Assistant
DX: M17.11 Unilateral primary osteoarthritis, right knee (principal)
CPT/HCPCS: 20610; 73562; J1010

== ENCOUNTER 2024-03-14 10:24 | Outpatient (AMB) | payer MEDICAID, SELFPAY ==
--- NOTE | 2024-03-14 10:32 | MHC.OFFVIS ---
Vital Signs 03/14/24 10:43 Height 4 ft 11 in Weight 189 lb BMI 38.2 Intake Visit Reasons: INJ- LF Shoulder Injection- last Inj 11/11/2021 Intake Note: Aiyana 63 year old who is non verbal and hard of hearing presents today with CLINICAL DOCUMENTATION NURSE for a follow up of left shoulder injection on 11/11/21. Patient reports last injection provided her with relief. She is requesting to repeat. Allergies adhesive tape [ADHESIVE TAPE] Allergy (Intermediate, Verified 03/11/24 10:32) RASH dolutegravir Allergy (Unknown, Verified 03/11/24 10:32) rash HPI HPI INJ- LF Shoulder Injection- last Inj 11/11/2021: Details: 63-year-old mute and impaired hearing female who returns to the office today with her CLINICAL DOCUMENTATION NURSE for a follow-up of left shoulder pain. She had her last injection on 11/11/21 which provided him relief. She would like to repeat the injection. [facility] Medical History Well woman exam Pre-op examination COVID-19 Dysplasia of cervix, low grade (KAREN 1) Right knee pain Asthma History of breast cancer Primary osteoarthritis of left knee Primary osteoarthritis of right knee Deafness HIV (human immunodeficiency virus infection) Surgical History Status post right breast lumpectomy History of tubal ligation Social History Household Members: None Housing: Apartment Are you a primary career services assistant to a significant other at home: No Do you presently have visiting nurse or other home services: Yes Alcohol intake: unknown Patient Tobacco Use Status: Never used Tobacco service: No Current occupational status: disabled Current occupation: Right Handed Female Reproductive History Menstrual Age of Menarche: 89 Review of Systems Const All systems reviewed & are unremarkable except as noted in HPI and below Physical Exam Vital Signs: BMI result Body Mass Index 38.2 Extrem Other: Left shoulder: Normal to inspection. Tenderness over the bicipital groove and along the deltoid region of the shoulder. Forward flexion to 175, external rotation to 90, internal rotation to S1. 5/5 RTC strength. Positive Banda. NVI. Office Procedures Joint Injection/Drain Joint Injection/Drain Primary Site: left shoulder Prep: site was prepped using aseptic technique, ethochloride spray was applied and injection warnings given Injected: 80 mg of, DepoMedrol, with 8 mL of, 1% plain lidocaine and in the subcromial space Approach Used: posterolateral Procedure: The patient tolerated the procedure well and there was some relief with the local anesthesia Coding 44266 - Glenohumeral/Tronchanteric Bursa/Intraarticular Procedure code (CPT) selection complete Assessment & Plan Assessment & Plan (1) Rotator cuff impingement syndrome of left shoulder: Code(s): M75.42 - Impingement syndrome of left shoulder Category: Medical Plan We discussed options today, which include steroid injection. The patient did consent to move forward with the left shoulder injection, which was tolerated well. I recommended rest, ice, and elevation and OTC anti-inflammatories as needed for discomfort. If symptoms persist or worsen over the next 6-8 weeks, patient will contact the office, otherwise follow-up as needed. Patient Instructions: Scribed for Melida Solomon PA-C, by Trenton Fox medical laboratory scientist, on 03/14/2024 at 10:30 AM EST.? I, Melida Solomon PA-C, have personally reviewed and agree with the information entered by the scribe. Coding Level of Care Code Est Pt Level 3 (51868) Diagnoses Rotator cuff impingement syndrome of left shoulder M75.42 CPT Codes Coding - Joint 7: 63466 - Glenohumeral/Tronchanteric Bursa/Intraarticular ([id number])
[2024-03-14 10:43] VITALS: BMI 38.2
== END 2024-03-14 11:28 | disposition home or self-care (01) ==
PROVIDERS: Visit Provider Physician Assistant
DX: M75.42 Impingement syndrome of left shoulder (principal)
CPT/HCPCS: 20610; 99213

== ENCOUNTER → 2024-03-14 10:24 | Outpatient (BNVA) | payer MEDICAID, SELFPAY | PROVIDERS: Visit Provider Physician Assistant | DX: M75.42 Impingement syndrome of left shoulder (principal) | CPT/HCPCS: 20610; 99212; J1010 ==

== ENCOUNTER 2024-04-08 12:22 | Outpatient (REF) | payer MEDICAID, SELFPAY ==
[2024-04-08 13:10] LABS: MANUAL DIFF FLAG NO
[2024-04-08 13:17] LABS: Basophils Percent Auto 0.3 % (0-2); Eosinophils Absolute Auto 0.1 X10*3/uL (0.0-0.4); Eosinophils Percent Auto 1.6 % (0-4); Hematocrit 39.3 % (37.0-47.0); Hemoglobin 12.6 g/dl (12.0-16.0); Imm Gran Abs Auto 0.02 X10*3/uL (0.00-0.03); Imm Gran Pct Auto 0.3 % (0.0-0.4); Lymphocytes Absolute Auto 1.8 X10*3/uL (1.2-4.9); Lymphocytes Percent Auto 31.2 % (20-40); Mean Corpuscular HGB Conc 32.1 g/dl (31.0-35.0); Mean Corpuscular Hemoglobin 27.9 pg (27.0-33.0); Mean Corpuscular Volume 86.9 fL (80.0-98.0); Mean Platelet Volume 9.6 fL (9.4-12.3); Monocytes Absolute Auto 0.4 X10*3/uL (0.1-1.2); Monocytes Percent Auto 7.2 % (2-11); Neutrophils Absolute Auto 3.4 x10*3/uL (2.0-8.3); Neutrophils Percent Auto 59.4 % (45-73); Platelet Count 264 X10*3/uL (160-400); Red Blood Count 4.52 X10*6/uL (4.20-5.50); Red Cell Distribution Width 13.2 % (11.0-16.0); White Blood Count 5.7 X10*3/uL (4.8-10.8)
[2024-04-08 13:32] LABS: Alanine Aminotransferase 24 U/L (0-31); Albumin Level 4.1 g/dL (3.5-5.0); Alkaline Phosphatase 98 U/L (39-117); Anion Gap 13 (12-20); Aspartate Amino Transferase 17 U/L (5-31); Bilirubin Total 0.4 mg/dL (0.0-1.0); Blood Urea Nitrogen 15 mg/dL (9-16); Calcium 8.9 mg/dL (8.4-10.2); Carbon Dioxide 26 mmol/L (22-29); Chloride 107 mmol/L (96-108); Estimated Glomerular Filt Rate > 60; Glucose Random 133 mg/dL (60-115); Potassium 3.5 mmol/L (3.3-5.1); Sodium 142 mmol/L (135-145)
[2024-04-08 13:45] LABS: Cholesterol 214 mg/dL (<200); HDL Cholesterol 66 mg/dL (>40); LDL Cholesterol Calculated 125 mg/dL (<100); Triglycerides 118 mg/dL (<150)
[2024-04-08 14:10] LABS: Reflex LDLD? No
[2024-04-09 08:34] LABS: HBc Num1 0.11 S/CO (0.00-0.79); Hepatitis B Core Antibody Nonreactive (Nonreactive); Hepatitis B Surface Antigen Negative (Negative); ~Hepatitis B Surface Antibody NONREACTIVE (Nonreactive)
[2024-04-09 08:37] LABS: Hepatitis A Antibody IgG REACTIVE (Nonreactive); ~Hepatitis A Antibody IgG 11.96 S/CO (0.00-0.99)
[2024-04-09 12:13] LABS: Varicella IgG Antibody >4000.00 index
[2024-04-09 17:29] LABS: Mumps Virus IgG Antibody <9.00 AU/mL; Rubella IgG Antibody 2.88 Index; Toxoplasma IgG Antibody <7.20 IU/mL; Toxoplasma IgM Antibody <8.00 AU/mL
[2024-04-11 08:27] LABS: HIV RNA PCR Qn Copies NOT DETECTED copies/mL (NOT DETECTED); HIV RNA PCR Qn Log Copies NOT DETECTED (NOT DETECTED)
[2024-04-11 18:47] LABS: Absolute CD3 Count 1633 cells/uL (840-3060); Absolute CD4 Count 594 cells/uL (490-1740); Absolute CD8 Count 1070 cells/uL (180-1170); Absolute Lymphocytes 1998 cells/uL (850-3900); CD4 CD8 Ratio 0.56 (0.86-5.00); Percent CD3 Cells 82 % (57-85); Percent CD4 Cells 30 % (30-61); Percent CD8 Cells 54 % (12-42)
== END 2024-04-08 12:23 | disposition home or self-care (01) ==
LOC: HO.HHCL 12:22
PROVIDERS: Internal Medicine Medical Oncology; Visit Provider Student in an Organized Health Care Education/Training Program
DX: B20 Human immunodeficiency virus [HIV] disease (principal); D05.11 Intraductal carcinoma in situ of right breast
CPT/HCPCS: 36415; 80053; 80061; 85025; 86359; 86360; 86704; 86706; 86708; 86735; 86762; 86765; 86777; 86778; 86787; 87340; 87536

== ENCOUNTER 2024-07-04 08:49 | Day surgery (SDC) | payer MEDICAID, SELFPAY ==
[2024-07-02 15:19] VITALS: BMI 38.4
--- NOTE | 2024-07-03 09:46 | P.CONAN_ITS ---
Documented by User: Yolie Vásquez NP 07/03/24 09:47 HPI - Anesthesia Eval Consult details Narrative: 63yo F for Upper Endoscopy and Colonoscopy PMFSH Active Problems Active Problems: All Active Problems COVID-19 (Acute) Upper abdominal pain (Acute) H. pylori infection (Acute) GERD (gastroesophageal reflux disease) (Acute) Tricompartment osteoarthritis of right knee (Acute) Painful arc syndrome of left shoulder (Acute) Ductal carcinoma in situ (DCIS) of right breast (Acute) Rotator cuff impingement syndrome of left shoulder (Acute) Well woman exam (Acute) Deafness (Acute) HIV (human immunodeficiency virus infection) (Acute) Past Medical History Medical History (Updated 07/04/24 @ 09:57 by Deborah Romero RN) Umbilical hernia Well woman exam Dysplasia of cervix, low grade (KAREN 1) COVID-19 Right knee pain Asthma History of breast cancer Primary osteoarthritis of left knee Primary osteoarthritis of right knee Deafness HIV (human immunodeficiency virus infection) Surgical History Surgical History (Updated 07/04/24 @ 09:56 by Deborah Romero RN) H/O mastectomy Status post right breast lumpectomy History of tubal ligation Social History Social History Household Members: None Housing: Apartment Are you a primary health care attorney to a significant other at home: No Do you presently have visiting nurse or other home services: Yes Alcohol intake: unknown Patient Tobacco Use Status: Never used Tobacco Use of substances other than those prescribed or required for medical reasons: No Are you DNR?: No Advance Directives: No Advance Directives Information Provided: Yes Advance Directives on File: No Nutrition Risks: No Nutritional Risk Patient : No service: No Current occupational status: disabled Current occupation: Right Handed Meds Allergies Allergy/AdvReac Type Severity Reaction Status Date / Time adhesive tape [ADHESIVE TAPE] Allergy Intermediate RASH Verified 03/11/24 10:32 dolutegravir Allergy Intermediate rash Verified 07/02/24 15:17 Home Medications ?Medication ?Instructions ?Recorded ?Confirmed ?Last Taken ?Type melatonin 5 mg tablet 1 tab PO BEDTIME PRN insomnia 09/29/21 07/02/24 Unknown History amlodipine 5 mg tablet 5 mg PO QAM 11/30/22 07/02/24 Unknown History calcium carbonate 500 mg-vitamin 1 tab PO DAILY 11/30/22 07/02/24 Unknown History D3 5 mcg (200 unit) tablet (Oyster Shell Calcium-Vitamin D3) bictegravir 50 mg-emtricitabine 1 tab PO QAM 07/02/24 07/02/24 Unknown History 200 mg-tenofovir alafenam 25 mg tablet (Biktarvy) fluticasone propionate 230 2 puff inhalation BID 07/02/24 07/02/24 Unknown History mcg-salmeterol 21 mcg/actuation HFA inhaler (Advair HFA) Exam Height,Weight and Vital Signs: Height 4 ft 11 in Weight 86.183 kg Assessment and Plan Assessment Anesthesia Assessment: Chart Reviewed Documented by User: Stiven Stuart MD 07/04/24 10:31 [facility] Past Medical History Medical History (Updated 07/04/24 @ 09:57 by Deborah Romero RN) Umbilical hernia Well woman exam Dysplasia of cervix, low grade (KAREN 1) COVID-19 Right knee pain Asthma History of breast cancer Primary osteoarthritis of left knee Primary osteoarthritis of right knee Deafness HIV (human immunodeficiency virus infection) Family History Family history of problems with anesthesia: No Surgical History Surgical History (Updated 07/04/24 @ 09:56 by Deborah Romero RN) H/O mastectomy Status post right breast lumpectomy History of tubal ligation History of Problems with Anesthesia: No Social History Social History Household Members: None Housing: Apartment Are you a primary health care attorney to a significant other at home: No Do you presently have visiting nurse or other home services: Yes Alcohol intake: unknown Patient Tobacco Use Status: Never used Tobacco Use of substances other than those prescribed or required for medical reasons: No Are you DNR?: No Advance Directives: No Advance Directives Information Provided: Yes Advance Directives on File: No Nutrition Risks: No Nutritional Risk Patient : No service: No Current occupational status: disabled Current occupation: Right Handed Meds Allergies Allergy/AdvReac Type Severity Reaction Status Date / Time adhesive tape [ADHESIVE TAPE] Allergy Intermediate RASH Verified 03/11/24 10:32 dolutegravir Allergy Intermediate rash Verified 07/02/24 15:17 Home Medications ?Medication ?Instructions ?Recorded ?Confirmed ?Last Taken ?Type melatonin 5 mg tablet 1 tab PO BEDTIME PRN insomnia 09/29/21 07/02/24 Unknown History amlodipine 5 mg tablet 5 mg PO QAM 11/30/22 07/02/24 Unknown History calcium carbonate 500 mg-vitamin 1 tab PO DAILY 11/30/22 07/02/24 Unknown History D3 5 mcg (200 unit) tablet (Oyster Shell Calcium-Vitamin D3) bictegravir 50 mg-emtricitabine 1 tab PO QAM 07/02/24 07/02/24 Unknown History 200 mg-tenofovir alafenam 25 mg tablet (Biktarvy) fluticasone propionate 230 2 puff inhalation BID 07/02/24 07/02/24 Unknown History mcg-salmeterol 21 mcg/actuation HFA inhaler (Advair HFA) Exam Airway Mallampati Class: II TM Dist: <=3cm Neck ROM: Full Denture: Upper and Lower Heart: ok Lungs: ok Assessment and Plan Assessment Anesthesia Assessment: Anesthesia Plan Discussed Final Anesthetic Review Family History of Problems with Anesthesia: No History of Problems with Anesthesia: No NPO: Yes ASA Class: III Final Preanesthetic Review: No Changes in Pt Med Stat, Meds/Allgs Chart Reviewed, Consent Obtained/Reviewed and Anes Risks/Benef Reviewed Patient Risk: Intermediate Procedure Risk: Intermediate Anesthetic Plan Anesthetic Plan: Agree w/ Assess. and Plan and TIVA Disposition: Standard PACU
[2024-07-04 09:53] VITALS: BMI 37.6
[2024-07-04 10:14] VITALS: BP 135/85; PULSE 64; RESP 16; TEMP 36.3; O2SAT 97
--- NOTE | 2024-07-04 10:21 | MHC.SHP ---
Pre-Procedural Eval Section A - 24 Hr Update-Section A only Date of Service: 07/04/24 Section B - Complete if H&P > 30 days Chief Complaint: Unspecified abdominal pain Relevant Family History (Specify if Yes): No Relevant Social History: None Present Medications: see Short Stay Collaborative assessment Medical History: Significant History (COVID-19 Dysplasia of cervix, low grade (KAREN 1) Right knee pain Asthma History of breast cancer Primary osteoarthritis of left knee Primary osteoarthritis of right knee Deafness HIV (human immunodeficiency virus infection)) History of Previous Operations: Relevant previous surgery/procedure and date(s) ( Status post right breast lumpectomy History of tubal ligation) Allergies: Allergies Allergy/AdvReac Type Severity Reaction Status Date / Time adhesive tape [ADHESIVE TAPE] Allergy Intermediate RASH Verified 03/11/24 10:32 dolutegravir Allergy Intermediate rash Verified 07/02/24 15:17 Review of Systems Sugical H&P ROS: Negative: Constitution, Cardiovascular, Respiratory, Neurological, Psychiatric, Hem-Onc, Allergic/Immunologic, Gastrointestinal, Genitourinary, Musculoskeletal, Integumentary, Endocrine and Eyes/Ears/Nose/Throat Exam Surgical H&P Exam: Normal: HEENT, Normal: Heart, Normal: Lungs, Normal: Extremities, Normal: Abdomen, Normal: Skin and Normal: Neurological Plan Diagnosis/Plan: Unchanged I have reviewed the history and physical and performed a pertinent physical examination on my patient. No changes have occurred unless specified. Time Spent With Patient Time: Total time managing care of this patient today ____ minutes.
[2024-07-04] MEDS: Lactated Ringers 1,000 ML 100 ML IVCONT (10:25)
--- NOTE | 2024-07-04 10:46 | HO.OPN-COLON ---
Colonoscopy Operative Note Operative Note Date of Service: 07/04/24 Narrative: Operative Information Procedure Description: EGD, Colonoscopy Indication: abdominal pain Anesthesia: MAC FLEXIBLE TRANSORAL UPPER GASTROINTESTINAL ENDOSCOPY AND COLONOSCOPY PROCEDURE NOTE UPPER ENDOSCOPY Consent: Indications for the procedure and potential complications of bleeding, perforation, reaction to medications and missed diagnosis were discussed with the patient and informed consent was obtained. Instrument: Olympus GIF H 190 J mid size upper endoscope Monitoring: Vital signs and clinical assessment, continuous EKG monitoring, Pulse oximetry, Carbon Dioxide monitoring and blood pressure monitoring were done throughout the procedure. Procedure: The patient was placed in the left lateral decubitis position and pre-procedure medications were administered and a bite block was placed. The endoscope was inserted into the mouth and advanced under direct vision to the third part of duodenum. A careful inspection was made as the upper endoscope was withdrawn including a retroflexed examination of the proximal stomach; Findings and interventions are described below. Findings: Larynx:normal Esophagus: GE junction at 34 cm, diaphragm hiatus at 34 cm, mild esophagitis at GEJ, bx taken from GEJ and distal esophagus Stomach: Mild patchy erythema. Biopsies were obtained. Grade 2 flap valve on retroflexed examination of the cardia. Duodenum: Normal bulb and descending duodenum, bx taken Intervention: Biopsies as noted above, COLONOSCOPY Instrument: Olympus variable stiffness pediatric scope 190L Colonoscopy Monitoring: Vital signs and clinical assessment, continuous EKG monitoring, Pulse oximetry, Carbon Dioxide monitoring and blood pressure monitoring were done throughout the procedure. Colon withdrawal time was 10 minutes. Procedure: The patient was placed in the left lateral decubitis position and pre-procedure medications were administered. After a digital rectal examination of the ano-rectum, the video colonoscope was inserted into the rectum and advanced through the colon to the cecum/TI. The colonoscope was slowly withdrawn in a retrograde panoramic fashion and the colon mucosa was carefully examined including a retroflexed view of the rectum. Findings and interventions are described below. Procedure Difficulty:moderate Findings: Terminal Ileum-not intubated Cecum:normal Ascending Colon: normal Transverse Colon -normal Descending Colon:normal Sigmoid Colon: normal Rectum: Retroflexion with small internal hemorrhoids, grade I Anorectum - normal Colon preparation: [place] Bowel Preparation Scale Right colon; 1-2 Transverse colon: 1- Left colon; 1 (0 = Unprepared colon segment with mucosa not seen due to solid stool that cannot be cleared. 1 = Portion of mucosa of the colon segment seen, but other areas of the colon segment not well seen due to staining, residual stool and/or opaque liquid. 2 = Minor amount of residual staining, small fragments of stool and/or opaque liquid, but mucosa of colon segment seen well. 3 = Entire mucosa of colon segment seen well with no residual staining, small fragments of stool or opaque liquid) Impression and Post Procedure Diagnosis: Endoscopy Findings: mild gastritis and esophagitis Colonoscopy Findings: internal hemorrhoids poor prep Plan: Await Pathology results Repeat Colonoscopy in 6-12 months, f/u with Malini cody to re discuss prep High fiber diet leaflet avoid straining at stool, epsom salts and sitz bath, anusol supps or cream if h pylori pos then treat Above findings were reviewed with the patient and relevant handouts were provided if indicated.
[2024-07-04 11:17] VITALS: BP 120/62; PULSE 64; RESP 18; TEMP 36.2; O2SAT 94
[2024-07-04 11:20] VITALS: BP 112/61; PULSE 61; RESP 18; O2SAT 94
[2024-07-04 11:30] VITALS: BP 134/78; PULSE 63; RESP 16; O2SAT 97
[2024-07-04 12:02] VITALS: BP 138/79; PULSE 65; RESP 16; TEMP 36.2; O2SAT 97
== END 2024-07-04 12:56 | disposition home or self-care (01) ==
PROVIDERS: PCP Family Medicine; Visit Provider Internal Medicine Gastroenterology
PROC: (CPT 43239; principal; 2024-07-04 11:00)
DX: K20.80 Other esophagitis without bleeding (principal); K29.70 Gastritis, unspecified, without bleeding; A04.8 Other specified bacterial intestinal infections; K21.9 Gastro-esophageal reflux disease without esophagitis; K64.0 First degree hemorrhoids; B20 Human immunodeficiency virus [HIV] disease; J45.909 Unspecified asthma, uncomplicated
CPT/HCPCS: 43239; 45378; 88305; 88313; 88342; J2003; J2704; J3010

== ENCOUNTER → 2024-07-04 08:49 | Outpatient (BNV) | payer MEDICAID, SELFPAY | PROVIDERS: PCP Family Medicine; Visit Provider Internal Medicine Gastroenterology | DX: K20.90 Esophagitis, unspecified without bleeding (principal); K29.70 Gastritis, unspecified, without bleeding; R10.9 Unspecified abdominal pain; K64.0 First degree hemorrhoids; Z91.199 Patient's noncompliance with other medical treatment and regimen due to unspecified reason | CPT/HCPCS: 43239; 45378 ==

== ENCOUNTER 2024-10-22 12:56 | Outpatient (REF) | payer MEDICAID, SELFPAY ==
[2024-10-22 16:12] LABS: MANUAL DIFF FLAG NO
[2024-10-22 16:18] LABS: Basophils Percent Auto 0.5 % (0-2); Eosinophils Absolute Auto 0.1 X10*3/uL (0.0-0.4); Eosinophils Percent Auto 1.2 % (0-4); Hematocrit 38.2 % (37.0-47.0); Hemoglobin 12.5 g/dl (12.0-16.0); Imm Gran Abs Auto 0.02 X10*3/uL (0.00-0.03); Imm Gran Pct Auto 0.4 % (0.0-0.4); Lymphocytes Absolute Auto 1.7 X10*3/uL (1.2-4.9); Lymphocytes Percent Auto 29.7 % (20-40); Mean Corpuscular HGB Conc 32.7 g/dl (31.0-35.0); Mean Corpuscular Hemoglobin 28.4 pg (27.0-33.0); Mean Corpuscular Volume 86.8 fL (80.0-98.0); Mean Platelet Volume 9.8 fL (9.4-12.3); Monocytes Absolute Auto 0.3 X10*3/uL (0.1-1.2); Monocytes Percent Auto 4.4 % (2-11); Neutrophils Absolute Auto 3.6 x10*3/uL (2.0-8.3); Neutrophils Percent Auto 63.8 % (45-73); Platelet Count 278 X10*3/uL (160-400); Red Cell Distribution Width 12.5 % (11.0-16.0); White Blood Count 5.6 X10*3/uL (4.8-10.8)
[2024-10-22 17:03] LABS: Alanine Aminotransferase 17 U/L (0-31); Albumin Level 3.9 g/dL (3.5-5.0); Alkaline Phosphatase 83 U/L (39-117); Anion Gap 11 (12-20); Aspartate Amino Transferase 22 U/L (5-31); Bilirubin Direct 0.2 mg/dL (0.0-0.5); Bilirubin Total 0.6 mg/dL (0.0-1.0); Blood Urea Nitrogen 13 mg/dL (9-16); Calcium 8.9 mg/dL (8.4-10.2); Carbon Dioxide 24 mmol/L (22-29); Chloride 109 mmol/L (96-108); Cholesterol 207 mg/dL (<200); Estimated Glomerular Filt Rate > 60; Glucose Random 155 mg/dL (60-115); HDL Cholesterol 57 mg/dL (>40); LDL Cholesterol Calculated 130 mg/dL (<100); Potassium 3.6 mmol/L (3.3-5.1); Sodium 140 mmol/L (135-145); Total Protein 7.1 g/dL (6.5-8.0); Triglycerides 100 mg/dL (<150)
[2024-10-24 17:33] LABS: HIV RNA PCR Qn Copies NOT DETECTED copies/mL (NOT DETECTED); HIV RNA PCR Qn Log Copies NOT DETECTED (NOT DETECTED)
== END 2024-10-22 12:57 | disposition home or self-care (01) ==
LOC: HO.HHCL 12:56
PROVIDERS: Internal Medicine; Visit Provider Family Medicine
DX: R73.03 Prediabetes (principal); Z21 Asymptomatic human immunodeficiency virus [HIV] infection status
CPT/HCPCS: 36415; 80053; 80061; 80076; 82248; 85025; 86359; 86360; 87536

== ENCOUNTER 2024-11-29 11:52 | Outpatient (REF) | payer MEDICAID, SELFPAY | END 2024-11-29 11:53 | disposition home or self-care (01) | LOC: HO.HAP 11:52 | PROVIDERS: Visit Provider Family Medicine | DX: Z46.1 Encounter for fitting and adjustment of hearing aid (principal); H90.3 Sensorineural hearing loss, bilateral | CPT/HCPCS: V5266 ==

== ENCOUNTER 2024-12-26 12:29 | Outpatient (AMB) | payer MEDICAID, SELFPAY ==
--- NOTE | 2024-12-26 12:39 | MHC.OFFVIS ---
Vital Signs 12/26/24 12:42 Height 4 ft 11 in Weight 186 lb BMI 37.6 BP 138/74 Blood Pressure Location Rt brachial Position Sitting Pulse 68 Pulse Source Pulse Oximeter Pulse Oximetry (%) 98 Oxygen Delivery Method Room Air Intake Visit Reasons: s/p EGD/[place]/H pylori Intake Note: ESTABLISHED PATIENT for s/p duo Chief Complaint; C/O persistent reflux, nausea, occasional vomiting, mild dysphagia with certain items. Pt reports sx seem to be worst at night. Pt has not taken sucralfate any further because she was feeling more nauseous while taking it. Pt is hoping for an alternative. No additional sx at this time. Jewelsmith Required: Yes Jewelsmith Services: Jewelsmith Offered & Declined Accompanied by: Family/Other Allergies adhesive tape [ADHESIVE TAPE] Allergy (Intermediate, Verified 12/26/24 12:50) RASH dolutegravir Allergy (Intermediate, Verified 12/26/24 12:50) rash HPI HPI s/p EGD/[place]/H pylori: Details: Assessment & Plan (1) Abdominal pain: Code(s): R10.9 - Unspecified abdominal pain Category: Medical Plan [place]/ASL #CANDY DEPARTMENT MANAGER translates per pt request She developed epigaastric pain and N/V/D that slowly started getting worse and worse until she presented to the ER for evaluation. She LWT and no imaging. The CANDY DEPARTMENT MANAGER feels that it is the patient's poor diet ie. she will eat potato chips and soda for breakfast. Has EGD/colonoscopy upcoming and appt with me 03/06. STOP KEFLEX as this may be a c/f. Start carafate liquid, get x-ray of the abdomen and CT. Keep 03/06 ROV. Orders: Orders CT abdomen pelvis w IV con Today R10.9 - Unspecified abdominal pain XR abdomen w decubitus Today R10.9 - Unspecified abdominal pain Medications: New sucralfate (Carafate) 10 mL PO BID 1,000 mL 3RF Discontinued cefuroxime axetil Discontinued Reason: Doctor's Order 250 mg PO BID 14 tabs 0RF LABS: EGD/ COLONOSCOPY 07/04/24 Findings: Larynx:normal Esophagus: GE junction at 34 cm, diaphragm hiatus at 34 cm, mild esophagitis at GEJ, bx taken from GEJ and distal esophagus Stomach: Mild patchy erythema. Biopsies were obtained. Grade 2 flap valve on retroflexed examination of the cardia. Duodenum: Normal bulb and descending duodenum, bx taken Findings: Terminal Ileum-not intubated Cecum:normal Ascending Colon: normal Transverse Colon -normal Descending Colon:normal Sigmoid Colon: normal Rectum: Retroflexion with small internal hemorrhoids, grade I Anorectum - normal Impression and Post Procedure Diagnosis: Endoscopy Findings: mild gastritis and esophagitis Colonoscopy Findings: internal hemorrhoids poor prep Plan: Await Pathology results Repeat Colonoscopy in 6-12 months, f/u with Malini cody to re discuss prep High fiber diet leaflet avoid straining at stool, epsom salts and sitz bath, anusol supps or cream if h pylori pos then treat BIOPSY Received: 07/04/24 Diagnosis A. Duodenum, biopsy: Small intestinal mucosa within normal limits. B. Stomach, biopsy: - Oxyntic mucosa with moderate chronic, focally active, inflammation. - Positive for H pylori. C. EG junction, biopsy: - Cardiofundic-type mucosa with moderate chronic active inflammation; no intestinal metaplasia seen. - No squamous epithelium identified mucosa within normal limits. D. Esophagus, distal, biopsy: Squamous epithelium within normal limits; no inflammation seen CT ABDOMEN AND PELVIS XR OF THE ABDOMEN TODAY'S VISIT PAKISTANI/ASL #CANDY DEPARTMENT MANAGER translates The colonoscopy needs to be repeated in a year due to very poor prep and will need to discuss this in depth when the time comes. The procedure was well tolerated. The results were explained and the patient is agreeable to the follow-up interval as stated. The bowel pattern has returned to normal. Education was provided to tell any 1st degree relatives about their findings to be sure that they are screened by age 45. Educated that they will be put on a recall list when it is time for their repeat scope but should they move out of state or away from the hospital they will need to remember along with their primary to repeat the procedure in a timely fashion to avoid any adverse complications. She is still c/o GERD est at night. Discussed blocks under bed....but HP still active. ? whether she really even completed received Levaquin/amoxicillin therapy (there were quite a lot of communication problems given her Samoan language baseline and sign language barrier and a variety of staff at her apartment complex) she was not treated or we did not eradicate it given the positive H pylori finding on biopsy. I am going to try quadruple therapy and will go from there. Return office visit next available [facility] Medical History (Updated 12/26/24 @ 14:47 by MARLENE Jauregui) Well woman exam COVID-19 Upper abdominal pain Umbilical hernia Dysplasia of cervix, low grade (KAREN 1) COVID-19 Right knee pain Asthma History of breast cancer Primary osteoarthritis of left knee Primary osteoarthritis of right knee Deafness HIV (human immunodeficiency virus infection) Surgical History H/O mastectomy Status post right breast lumpectomy History of tubal ligation Social History Household Members: None Housing: Apartment Are you a primary child care education coordinator to a significant other at home: No Do you presently have visiting nurse or other home services: Yes Alcohol intake: unknown Patient Tobacco Use Status: Never used Tobacco service: No Current occupational status: disabled Current occupation: Right Handed Female Reproductive History Menstrual Age of Menarche: 89 Review of Systems Const Denies fatigue, Denies fever(s), Denies night sweats, Denies poor appetite and Denies weight loss ENT Denies dental pain, Denies dysphagia, Reports hearing loss, Denies mouth pain, Denies odynophagia, Denies throat swelling, Denies tongue swelling and Reports other (Dentition adequate) Card Reports no additional complaints Resp Reports no additional complaints GI Details: Denies abdominal pain, Denies melena, Denies bloating, Denies hematochezia, Denies constipation, Denies GI cramping, Denies dysphagia, Denies excessive flatus, Denies early satiety, Reports dyspepsia, Reports heartburn, Denies diarrhea, Denies nausea, Denies odynophagia, Denies vomiting and Denies hematemesis Musc Reports back pain Skin/Breast Denies pruritus, Denies lesions, Denies rash and Denies jaundice Neuro Denies Abnormal speech present Endo Denies fatigue Aller/Immun Denies throat swelling and Denies tongue swelling Physical Exam Vital Signs: Last Vital Signs Pulse 68 12/26/24 12:42 BP 138/74 12/26/24 12:42 Pulse Ox 98 12/26/24 12:42 Oxygen Delivery Method Room Air 12/26/24 12:42 BMI result Body Mass Index 37.6 Const General: cooperative, no acute distress, well developed and well groomed Nutritional Appearance: well nourished and obese centrally obese Orientation/consciousness: oriented to person, oriented to place and oriented to time Limitations: language barrier and other limitations HEENT Head: Yes normocephalic and Yes atraumatic Eyes General: appearance normal, both eyes and all related structures Pupils: Equal, round and reactive pupils present Neck Neck: Yes normal visual inspection and Yes no lymphadenopathy Thyroid: Thyroid normal Resp Effort & Inspection: normal respiratory effort and able to speak in complete sentences Auscultation: clear to auscultation bilaterally Cardio Rate: regular rate Rhythm: regular rhythm Heart sounds: Normal, physiologic split S2 sound present Peripheral pulses: radial pulses present and posterior tibial pulses present GI Inspection: No distended, Yes Abdominal panniculus present and Yes obesity Palpation (GI): Soft to palpation, nontender, no guarding, not rigid and No hepatosplenomegaly present Percussion: Yes normal to percussion Auscultation: normal bowel sounds Rectal Exam - Female: deferred Skin General skin exam: no rashes or lesions noted, turgor normal, skin not dry, no jaundice, No spider nevi and no striae Rashes: no rashes Nails: normal Neuro General: oriented to person, oriented to place and oriented to time Cranial nerves: Yes Equal, round and reactive pupils present Speech: No Abnormal speech present Extrem General: Yes normal to inspection, No clubbing, No cyanosis and No edema Psych Appearance: grossly normal and well kempt Mental Status: mental status grossly normal Speech and movement: Mute speech present Affect: normal affect Attitude: cooperative Thought process: Other thought process findings present Thought content: other Insight: Poor insight present (Psych) Judgement: Poor judgement present (Psych) Results Reviewed Results Reviewed: EGD/ COLONOSCOPY 07/04/24 Findings: Larynx:normal Esophagus: GE junction at 34 cm, diaphragm hiatus at 34 cm, mild esophagitis at GEJ, bx taken from GEJ and distal esophagus Stomach: Mild patchy erythema. Biopsies were obtained. Grade 2 flap valve on retroflexed examination of the cardia. Duodenum: Normal bulb and descending duodenum, bx taken Findings: Terminal Ileum-not intubated Cecum:normal Ascending Colon: normal Transverse Colon -normal Descending Colon:normal Sigmoid Colon: normal Rectum: Retroflexion with small internal hemorrhoids, grade I Anorectum - normal Impression and Post Procedure Diagnosis: Endoscopy Findings: mild gastritis and esophagitis Colonoscopy Findings: internal hemorrhoids poor prep Plan: Await Pathology results Repeat Colonoscopy in 6-12 months, f/u with Malini cody to re discuss prep High fiber diet leaflet avoid straining at stool, epsom salts and sitz bath, anusol supps or cream if h pylori pos then treat BIOPSY Received: 07/04/24 Diagnosis A. Duodenum, biopsy: Small intestinal mucosa within normal limits. B. Stomach, biopsy: - Oxyntic mucosa with moderate chronic, focally active, inflammation. - Positive for H pylori. C. EG junction, biopsy: - Cardiofundic-type mucosa with moderate chronic active inflammation; no intestinal metaplasia seen. - No squamous epithelium identified mucosa within normal limits. D. Esophagus, distal, biopsy: Squamous epithelium within normal limits; no inflammation seen Assessment & Plan Assessment & Plan (1) GERD (gastroesophageal reflux disease): Code(s): K21.9 - Gastro-esophageal reflux disease without esophagitis Category: Medical (2) H. pylori infection: Comment: Negative stool but positive on direct biopsy EGD-? failed amox leva theraoy (comm issues), will try quad therapy Code(s): A04.8 - Other specified bacterial intestinal infections Category: Medical (3) Obesity (BMI 35.0-39.9 without comorbidity): Code(s): E66.9 - Obesity, unspecified Category: Medical (4) Deafness: Comment: Samoan speaking and her friends and CANDY DEPARTMENT MANAGER have their own language to speak with patient. she doesnt use ASL shaft mechanic but knows a few hand signs Code(s): H91.90 - Unspecified hearing loss, unspecified ear Category: Medical Plan [place]/ASL #CANDY DEPARTMENT MANAGER translates The colonoscopy needs to be repeated in a year due to very poor prep and will need to discuss this in depth when the time comes. The procedure was well tolerated. The results were explained and the patient is agreeable to the follow-up interval as stated. The bowel pattern has returned to normal. Education was provided to tell any 1st degree relatives about their findings to be sure that they are screened by age 45. Educated that they will be put on a recall list when it is time for their repeat scope but should they move out of state or away from the hospital they will need to remember along with their primary to repeat the procedure in a timely fashion to avoid any adverse complications. She is still c/o GERD est at night. Discussed blocks under bed....but HP still active. ? whether she really even completed received Levaquin/amoxicillin therapy (there were quite a lot of communication problems given her Samoan language baseline and sign language barrier and a variety of staff at her apartment complex) she was not treated or we did not eradicate it given the positive H pylori finding on biopsy. I am going to try quadruple therapy and will go from there. This is a very long appointment as the patient needed an explanation about all of her results with barriers encountered for both the Samoan speaking and sign language interpretation situation. She also has poor insight into cause and effect and frequently will declined tests or medications. I tried to give her a thorough it explanation is possible to allow her to comply well with therapy. Return office visit next available Medications: New metronidazole 1,000 mg (2 x 500 mg) PO BID 56 tabs 0RF 14 days bismuth subsalicylate (Bismuth) 2 tabs PO QID 112 tabs 0RF 14 days A04.8 - Other specified bacterial intestinal infections doxycycline hyclate 100 mg PO BID 28 tabs 0RF 14 days A04.8 - Other specified bacterial intestinal infections, K21.9 - Gastro-esophageal reflux disease without esophagitis Refilled cimetidine 200 mg PO BID 60 tabs 6RF A04.8 - Other specified bacterial intestinal infections Coding Level of Care Code Est Pt Level 4 (06310) Diagnoses GERD (gastroesophageal reflux disease) K21.9 H. pylori infection A04.8 Obesity (BMI 35.0-39.9 without comorbidity) E66.9 Deafness H91.90 Time Spent (min) 38
[2024-12-26 12:42] VITALS: BP 138/74; PULSE 68; O2SAT 98; BMI 37.6
== END 2024-12-26 13:36 | disposition home or self-care (01) ==
LOC: HO.HGI 12:29
PROVIDERS: PCP Family Medicine; Visit Provider Nurse Practitioner
DX: K21.9 Gastro-esophageal reflux disease without esophagitis (principal); A04.8 Other specified bacterial intestinal infections; E66.9 Obesity, unspecified; H91.90 Unspecified hearing loss, unspecified ear
CPT/HCPCS: 99214

== ENCOUNTER → 2024-12-26 12:29 | Outpatient (BNVA) | payer MEDICAID, SELFPAY | PROVIDERS: PCP Family Medicine; Visit Provider Nurse Practitioner | DX: K21.9 Gastro-esophageal reflux disease without esophagitis (principal); A04.8 Other specified bacterial intestinal infections; H91.90 Unspecified hearing loss, unspecified ear; E66.9 Obesity, unspecified; Z68.37 Body mass index [BMI] 37.0-37.9, adult | CPT/HCPCS: 99212 ==

== ENCOUNTER 2025-02-18 10:18 | Outpatient (AMB) | payer MEDICAID, SELFPAY ==
--- NOTE | 2025-02-18 10:21 | MHC.OFFVIS ---
Vital Signs 02/18/25 10:36 Height 4 ft 11 in BMI Reason not done Patient refused/unable BP 134/72 Blood Pressure Location Rt brachial Position Sitting Pulse 72 Pulse Source Pulse Oximeter Pulse Oximetry (%) 98 Oxygen Delivery Method Room Air Intake Visit Reasons: H pylori, GERD Intake Note: Est pt for mgmt of GERD + FUV s/p H Pylori Tx. CC; C.O. GERD + increased phlegm, chronic sx persistence. Pt did complete H Pylori Tx. No additional sx or concerns at this time. Internal Combustion Engine Assembler Required: Yes Internal Combustion Engine Assembler Services: Internal Combustion Engine Assembler Offered & Declined Accompanied by: Other Relationship Allergies adhesive tape (ADHESIVE TAPE) Allergy (Intermediate, Verified 02/18/25 10:42) RASH dolutegravir Allergy (Intermediate, Verified 02/18/25 10:42) rash HPI HPI H pylori, GERD: Details: Assessment & Plan (1) GERD (gastroesophageal reflux disease): Code(s): K21.9 - Gastro-esophageal reflux disease without esophagitis Category: Medical (2) H. pylori infection: Comment: Negative stool but positive on direct biopsy EGD-? failed amox leva theraoy (comm issues), will try quad therapy Code(s): A04.8 - Other specified bacterial intestinal infections Category: Medical (3) Obesity (BMI 35.0-39.9 without comorbidity): Code(s): E66.9 - Obesity, unspecified Category: Medical (4) Deafness: Comment: Lithuanian speaking and her friends and FINAL INSPECTION SUPERVISOR have their own language to speak with patient. she doesnt use ASL water main pipe layer but knows a few hand signs Code(s): H91.90 - Unspecified hearing loss, unspecified ear Category: Medical Plan [place]/ASL #FINAL INSPECTION SUPERVISOR translates The colonoscopy needs to be repeated in a year due to very poor prep and will need to discuss this in depth when the time comes. The procedure was well tolerated. The results were explained and the patient is agreeable to the follow-up interval as stated. The bowel pattern has returned to normal. Education was provided to tell any 1st degree relatives about their findings to be sure that they are screened by age 45. Educated that they will be put on a recall list when it is time for their repeat scope but should they move out of state or away from the hospital they will need to remember along with their primary to repeat the procedure in a timely fashion to avoid any adverse complications. She is still c/o GERD est at night. Discussed blocks under bed....but HP still active. ? whether she really even completed received Levaquin/amoxicillin therapy (there were quite a lot of communication problems given her Lithuanian language baseline and sign language barrier and a variety of staff at her apartment complex) she was not treated or we did not eradicate it given the positive H pylori finding on biopsy. I am going to try quadruple therapy and will go from there. This is a very long appointment as the patient needed an explanation about all of her results with barriers encountered for both the Lithuanian speaking and sign language interpretation situation. She also has poor insight into cause and effect and frequently will declined tests or medications. I tried to give her a thorough it explanation is possible to allow her to comply well with therapy. Return office visit next available Medications: New metronidazole 1,000 mg (2 x 500 mg) PO BID 56 tabs 0RF 14 days bismuth subsalicylate (Bismuth) 2 tabs PO QID 112 tabs 0RF 14 days A04.8 - Other specified bacterial intestinal infections doxycycline hyclate 100 mg PO BID 28 tabs 0RF 14 days A04.8 - Other specified bacterial intestinal infections, K21.9 - Gastro-esophageal reflux disease without esophagitis Refilled cimetidine 200 mg PO BID 60 tabs 6RF A04.8 - Other specified bacterial intestinal infections TODAYS VISIT Lithuanian #nuclear instructor translates per pt request They says that she completed the quad therapy - but there is some uncertainty as the pt will often decline to take medicines but not tell the truth. However, her GERD is improved in that she is not complaining as often and she is not able to drink water. Will get HP stool test, she should be on cimetidine (FINAL INSPECTION SUPERVISOR will check). ROV 6 weeks. [facility] Medical History Well woman exam COVID-19 Upper abdominal pain Umbilical hernia Dysplasia of cervix, low grade (KAREN 1) COVID-19 Right knee pain Asthma History of breast cancer Primary osteoarthritis of left knee Primary osteoarthritis of right knee Deafness HIV (human immunodeficiency virus infection) Surgical History H/O mastectomy Status post right breast lumpectomy History of tubal ligation Social History Household Members: None Housing: Apartment Are you a primary manager managed care to a significant other at home: No Do you presently have visiting nurse or other home services: Yes Alcohol intake: unknown Patient Tobacco Use Status: Never used Tobacco service: No Current occupational status: disabled Current occupation: Right Handed Female Reproductive History Menstrual Age of Menarche: 89 Review of Systems Const Denies fatigue, Denies fever(s), Denies night sweats, Denies poor appetite and Denies weight loss ENT Reports Normal hearing present, Denies dental pain, Denies dysphagia, Denies hearing loss, Denies mouth pain, Denies odynophagia, Denies throat swelling, Denies tongue swelling and Reports other (Dentition adequate) Card Reports no additional complaints Resp Reports no additional complaints GI Details: Denies abdominal pain, Denies melena, Denies bloating, Denies hematochezia, Reports constipation, Denies GI cramping, Denies dysphagia, Denies excessive flatus, Denies early satiety, Reports heartburn, Denies diarrhea, Denies nausea, Denies odynophagia, Denies vomiting and Denies hematemesis Skin/Breast Denies pruritus, Denies lesions, Denies rash and Denies jaundice Neuro Reports Normal hearing present and Denies Abnormal speech present Endo Denies fatigue Aller/Immun Denies throat swelling and Denies tongue swelling Physical Exam Vital Signs: Last Vital Signs Pulse 72 02/18/25 10:36 BP 134/72 02/18/25 10:36 Pulse Ox 98 02/18/25 10:36 Oxygen Delivery Method Room Air 02/18/25 10:36 Const General: cooperative, no acute distress, well developed and well groomed Nutritional Appearance: well nourished and obese Orientation/consciousness: oriented to person, oriented to place and oriented to time Limitations: language barrier and ambulation with walker HEENT Head: Yes normocephalic and Yes atraumatic Eyes General: appearance normal, both eyes and all related structures Pupils: Equal, round and reactive pupils present Neck Neck: Yes normal visual inspection and Yes no lymphadenopathy Thyroid: Thyroid normal Resp Effort & Inspection: normal respiratory effort and able to speak in complete sentences Auscultation: clear to auscultation bilaterally Cardio Rate: regular rate Rhythm: regular rhythm Heart sounds: Normal, physiologic split S2 sound present Peripheral pulses: radial pulses present and posterior tibial pulses present GI Inspection: No distended, Yes Abdominal panniculus present and Yes obesity Palpation (GI): Soft to palpation, nontender, no guarding, not rigid and No hepatosplenomegaly present Percussion: Yes normal to percussion Auscultation: normal bowel sounds Rectal Exam - Female: deferred Skin General skin exam: no rashes or lesions noted, turgor normal, skin not dry, no jaundice, No spider nevi and no striae Rashes: no rashes Nails: normal Neuro General: oriented to person, oriented to place and oriented to time Cranial nerves: Yes Equal, round and reactive pupils present and Yes Normal hearing present Speech: No Abnormal speech present Extrem General: Yes normal to inspection, No clubbing, No cyanosis and No edema Psych Appearance: grossly normal and well kempt Mental Status: other Speech and movement: Normal speech and movement present Affect: normal affect Attitude: cooperative Thought process: not confabulating and Illogical thought process present Thought content: Normal thought content present Insight: Poor insight present (Psych) Judgement: Poor judgement present (Psych) Assessment & Plan Assessment & Plan (1) GERD (gastroesophageal reflux disease): Code(s): K21.9 - Gastro-esophageal reflux disease without esophagitis Category: Medical (2) H. pylori infection: Comment: Negative stool but positive on direct biopsy EGD-? failed amox leva theraoy (comm issues), will try quad therapy Code(s): A04.8 - Other specified bacterial intestinal infections Category: Medical Plan Lithuanian #nuclear instructor translates per pt request They says that she completed the quad therapy - but there is some uncertainty as the pt will often decline to take medicines but not tell the truth. However, her GERD is improved in that she is not complaining as often and she is not able to drink water. Will get HP stool test, she should be on cimetidine (FINAL INSPECTION SUPERVISOR will check). ROV 6 weeks. Orders: Orders H pylori Ag Stool Today A04.8 - Other specified bacterial intestinal infections Coding Level of Care Code Est Pt Level 4 (44430) Diagnoses GERD (gastroesophageal reflux disease) K21.9 H. pylori infection A04.8 Time Spent (min) 35
[2025-02-18 10:36] VITALS: BP 134/72; PULSE 72; O2SAT 98
== END 2025-02-18 11:12 | disposition home or self-care (01) ==
LOC: HO.HGI 10:19
PROVIDERS: PCP Family Medicine; Visit Provider Nurse Practitioner
DX: K21.9 Gastro-esophageal reflux disease without esophagitis (principal); A04.8 Other specified bacterial intestinal infections
CPT/HCPCS: 99214

== ENCOUNTER → 2025-02-18 10:18 | Outpatient (BNVA) | payer MEDICAID, SELFPAY | PROVIDERS: PCP Family Medicine; Visit Provider Nurse Practitioner | DX: K21.9 Gastro-esophageal reflux disease without esophagitis (principal); A04.8 Other specified bacterial intestinal infections; E66.9 Obesity, unspecified; H91.90 Unspecified hearing loss, unspecified ear | CPT/HCPCS: 99212 ==

== ENCOUNTER 2025-05-08 01:01 | Emergency (ER) | payer MEDICAID, SELFPAY ==
--- NOTE | ~2025-05-08 | XR_ITS ---
CLINICAL HISTORY: cough 1 view chest x-ray. Comparison: CR/SC/SR - XR CHEST 2 VIEWS - 01/30/24 12:23 EDT Findings: The nodule in the medial aspect of the right lower lung projecting over the right heart border appears grossly stable. Lungs appear otherwise clear. Cardiomediastinal silhouette is within normal limits for technique. IMPRESSION: No acute cardiopulmonary abnormality. This document has been electronically signed by: Marc Villaseñor MD on 05/08/2025 02:49:49
--- NOTE | ~2025-05-08 | XR_ITS ---
CLINICAL HISTORY: pain 3 views lumbar spine Comparison: None provided Findings: There is mild degenerative grade 1 anterolisthesis of L4 on L5 due to facet osteoarthritis. Vertebral body heights are normal. No fracture is seen. Disc spaces are preserved. There is aortic calcification. There is surgical material consistent with prior ventral hernia repair. Impression: No acute findings. This document has been electronically signed by: Marc Villaseñor MD on 05/08/2025 02:51:08
[2025-05-08 01:10] VITALS: BP 130/82; PULSE 82; O2SAT 98
[2025-05-08 01:13] VITALS: PULSE 77; RESP 22; TEMP 36.4; O2SAT 98; BMI 37.8
[2025-05-08 01:21] VITALS: BP 139/65; PULSE 77; RESP 22; TEMP 36.4; O2SAT 98
--- NOTE | 2025-05-08 01:34 | ECG_ITS ---
Test Reason : DYSPNEA Blood Pressure : */* mmHG Vent. Rate : 74 BPM Atrial Rate : 74 BPM P-R Int : 138 ms QRS Dur : 86 ms QT Int : 422 ms P-R-T Axes : 54 1 48 degrees QTcB Int : 468 ms Normal sinus rhythm Septal infarct , age undetermined Abnormal ECG When compared with ECG of 31-Dec-2023 15:34, Septal infarct is now Present Referred By: Jordon Rubalcava Electronically Signed By: JOSSE AYERS MD
[2025-05-08 01:52] LABS: Hematocrit 36.3 % (37.0-47.0); Hemoglobin 12.0 g/dl (12.0-16.0); Imm Gran Abs Auto 0.02 X10*3/uL (0.00-0.03); Imm Gran Pct Auto 0.4 % (0.0-0.4); Lymphocytes Absolute Auto 1.7 X10*3/uL (1.2-4.9); MANUAL DIFF FLAG NO; Mean Corpuscular HGB Conc 33.1 g/dl (31.0-35.0); Mean Corpuscular Hemoglobin 28.3 pg (27.0-33.0); Mean Corpuscular Volume 85.6 fL (80.0-98.0); NRBC Abs Auto 0.000 X10*3/uL (0.0-0.012); NRBC Pct Auto 0.0 /100WBC (0.0-0.2); Platelet Count 248 X10*3/uL (160-400); Red Blood Count 4.24 X10*6/uL (4.20-5.50); White Blood Count 5.6 X10*3/uL (4.8-10.8)
--- NOTE | 2025-05-08 01:53 | ED_ITS ---
HPI - General Adult General Chief complaint: General Medical Stated complaint: lower extremity pain, edema Time Seen by Provider: 05/08/25 01:19 Source: patient, RN notes reviewed, old records reviewed and financial services director Mode of arrival: EMS Limitations: language barrier (The patient is deaf and mute but can read lips in [place]) and other (No Australian fur designer was available) History of Present Illness ED Provider: Gini HPI narrative: 64-year-old female with a past medical history significant for and mutism, obesity, GERD, osteoarthritis, asthma, HIV presenting for evaluation of multiple complaints. History is significantly limited due to language barrier. The patient reports that she can understand the Australian sales service executive by reading lips She reports understanding Samoan sign language in [place], however the social worker delinquency prevention could not communicate with the patient and reported that he was unsure that the patient understood Samoan sign language The patient complains of a headache over the last week or so. She complains of a cough that leads her to vomit. She also complains of lower back pain and leg swelling She states that all these symptoms have been present for about 1 week Denies any fevers or chills Denies any sick contacts Related Data Home Medications ?Medication ?Instructions ?Recorded ?Confirmed melatonin 5 mg tablet 1 tab PO BEDTIME PRN insomni a 09/29/21 07/02/24 amlodipine 5 mg tablet 5 mg PO QAM 11/30/22 4 calcium 500 mg (as 1 tab PO DAILY 11/30/2201/18 carbonate)-vitamin D3 5 mcg (200 unit) tablet (Oyster Shell Calcium-Vitamin D3) bictegravir 50 mg-emtricitabine 1 tab PO QAM 07/02/24 07/02/24 200 mg-tenofovir alafenam 25 mg tablet (Biktarvy) fluticasone propionate 230 2 puff inhalation BID 07/0207/02/24 mcg-salmeterol 21 mcg/actuation HFA inhaler (Advair HFA) lidocaine 5 % topical patch patch topical 12/26/24 Previous Rx's ?Medication ?Instructions ?Recorded albuterol sulfate 90 mcg/actuation 1 puff inhalation Q ID PRN 07/03/23 aerosol inhaler shortness of breath or wheez ing #8.5 grams meclizine 25 mg tablet 25 mg PO BID PRN dizziness # 14 tabs 12/31/23 ondansetron 4 mg disintegrating 4 mg PO Q8H PRN nausea and 12/31/23 tablet vomiting #10 tabs cimetidine 200 mg tablet 200 mg PO BID #60 tabs 12/26 acetaminophen 500 mg capsule 1,000 mg (2 x 500 mg) PO Q8H PRN 05/08/25 fever or pain #14 caps clotrimazole 1 % topical cream 1 appl topical BID 4 we eks #45 05/08/25 grams ibuprofen 400 mg tablet 400 mg PO Q6H PRN pain #14 t abs 05/08/25 Allergies Allergy/AdvReac Type Severity Reaction Status Date / Time adhesive tape (ADHESIVE TAPE) Allergy Intermediate RASH Verified 05/08/25 01:17 dolutegravir Allergy Intermediate rash Verified 05/08/25 01:17 Review of Systems 2 Constitutional: Constitutional: Denies body ache(s), Denies chills, Denies fever(s) and Reports headache(s) Eyes: Eyes: Denies blurry vision ENT: Denies vertigo, Denies dizziness and Reports headache(s) Cardiovascular: Cardiovascular: Denies chest pain, Reports leg edema and Reports dyspnea Respiratory: Respiratory: Reports cough and Reports dyspnea Gastrointestinal: Gastrointestinal: Denies abdominal pain, Reports nausea and Reports vomiting Musculoskeletal: Musculoskeletal: Reports back pain Integumentary/Breasts: Skin/Breast: Denies rash Neurologic: Denies vertigo, Denies dizziness and Reports headache(s) Psychiatric: Psychiatric: Denies anxiety [facility] Past Medical History Medical History Well woman exam COVID-19 Upper abdominal pain Umbilical hernia Dysplasia of cervix, low grade (KAREN 1) COVID-19 Right knee pain Asthma History of breast cancer Primary osteoarthritis of left knee Primary osteoarthritis of right knee Deafness HIV (human immunodeficiency virus infection) Surgical History H/O mastectomy Status post right breast lumpectomy History of tubal ligation Social History Social History Household Members: None Housing: Apartment Are you a primary lawn care worker to a significant other at home: No Do you presently have visiting nurse or other home services: Yes Alcohol intake: unknown Patient Tobacco Use Status: Never used Tobacco Advance Directives: No Advance Directives Information Provided: Yes service: No Current occupational status: disabled Current occupation: Right Handed Physical Exam ED Vital Signs: Vital Signs - 24 hr 05/08/25 01:13 05/08/25 01:21 Temperature 97.5 F 97.5 F Pulse Rate 77 77 Respiratory Rate 22 H 22 H Blood Pressure 139/65 Pulse Oximetry 98 98 Oxygen Delivery Method Room Air Room Air BMI result Body Mass Index 37.8 Const General: healthy appearing, comfortable, no acute distress, alert and awake Nutritional Appearance: well nourished [facility] Head: Yes normocephalic and Yes atraumatic Eyes Eyelids: Yes eyelids normal Conjunctivae: conjunctivae normal Sclerae: sclerae normal Corneas: corneas normal Pupils: Equal, round and reactive pupils present EOM: EOMs intact bilaterally Neck Neck: Yes full ROM Resp Effort & Inspection: normal respiratory effort, able to speak in complete sentences, no audible wheezes and not labored Auscultation: clear to auscultation bilaterally Cardio Other: One to 2+ bilateral pitting edema. Rate: regular rate Rhythm: regular rhythm GI Inspection: No distended Palpation (GI): Soft to palpation, not firm, nontender, no guarding and not rigid Skin General skin exam: elasticity normal Neuro Cranial nerves: Yes Equal, round and reactive pupils present and Yes Bilaterally intact EOM present Extrem Other: There is some mild lichenification in between the toes bilaterally. Course Course Course Narrative: [place]: This patient was signed out to me at change of shift by the physician assistant librarian. The patient is a 64-year-old woman with a history of HIV on anti- retroviral therapy. She is deaf and communicates by sign language and can also read lips. She is Australian-speaking and therefore communication was facilitated with a kayak maker at the bedside. The patient's workup in the emergency room today is very unremarkable. She has a normal white count and differential. Her metabolic panel is unremarkable. Her C-reactive protein is normal. She has a minimally abnormal urinalysis. No symptoms of a UTI. She is negative for COVID and influenza. Her chest x-ray was read as no acute findings. Her lumbar spine x-ray was read as no acute findings. The patient complains of a great deal of generalized body pain while looking clinically quite well. She also complains of bilateral lower extremity edema. She has some minimal pitting edema of both legs. I do not feel there are findings to suggest a DVT. Additionally she complains of some itchiness and skin changes to the right foot at the base of the toes. This may be some degree of a tinea pedis. My overall impression is that the patient is not significantly acutely ill. She is afebrile. She is not tachycardic. I think she may be discharged with a prescription for ibuprofen and acetaminophen as needed for discomfort. Also a prescription for clotrimazole cream that she may apply to her foot for a possible tinea pedis infection. She should apply this 2 times a day for 4 weeks. She should contact her PCP in the morning for a follow up appointment next week. Medications Administered Discontinued Medications Generic Name Dose Route Start Last Admin Trade Name Freq PRN Reason Stop Dose Admin Acetaminophen 975 mg 05/08/25 02:14 05/08/25 02:43 Acetaminophen 325 Mg Tablet PO 05/08/25 02:15 975 mg ONCE ONE Administration Ibuprofen 400 mg 05/08/25 02:14 05/08/25 02:43 Ibuprofen 400 Mg Tablet PO 05/08/25 02:15 400 mg ONCE ONE Administration Medical Decision Making Medical Decision Making MDM Narrative: 64-year-old female with a past medical history as above presents for evaluation of multiple complaints. Again history taking is extremely limited due to the patient being unable to communicate with the social worker delinquency prevention, unable to write and unable to speak. It seems as though she has had viral symptoms with cough, some nausea and vomiting, headache for the last week. She also complains of leg swelling and back pain. Her vital signs are stable, she is quite well appearing, lungs are clear to auscultation and she is afebrile. Plan for basic labs, chest x-ray, lumbar spine x-ray, EKG, BNP, viral swabs. Differential Diagnosis Differential Diagnoses: The differential diagnosis associated with the presentation includes Viral syndrome Upper respiratory infection Asthma exacerbation Bronchitis Pneumonia CHF Lab Data 05/08/25 01:47 05/08/25 01:47 Labs: Lab Results 05/08/25 05/08/25 05/08/25 Range/Units 01:47 02:07 03:12 WBC 5.6 (4.8-10.8) X10*3/uL RBC 4.24 (4.20-5.50) X10*6/uL Hgb 12.0 (12.0-16.0) g/dl Hct 36.3 L (37.0-47.0) % MCV 85.6 (80.0-98.0) fL MCH 28.3 (27.0-33.0) pg MCHC 33.1 (31.0-35.0) g/dl RDW 13.0 (11.0-16.0) % Plt Count 248 (160-400) X10*3/uL MPV 9.1 L (9.4-12.3) fL Immature Gran % (Auto) 0.4 (0.0-0.4) % Neut % (Auto) 59.9 (45-73) % Lymph % (Auto) 30.8 (20-40) % [place] % (Auto) 6.4 (2-11) % Eos % (Auto) 2.1 (0-4) % Baso % (Auto) 0.4 (0-2) % Lymph # (Auto) 1.7 (1.2-4.9) X10*3/uL [place] # (Auto) 0.4 (0.1-1.2) X10*3/uL Eos # (Auto) 0.1 (0.0-0.4) X10*3/uL Baso # (Auto) 0.0 (0.0-0.2) X10*3/uL Abs Immat Gran (auto) 0.02 (0.00-0.03) X10*3/uL Absolute Neuts (auto) 3.4 (2.0-8.3) x10*3/uL Absolute Nucleated RBC 0.000 (0.0-0.012) X10*3/uL Nucleated RBC % (auto) 0.0 (0.0-0.2) /100WBC Sodium 143 (135-145) mmol/L Potassium 3.4 (3.3-5.1) mmol/L Chloride 108 (96-108) mmol/L Carbon Dioxide 26 (22-29) mmol/L Anion Gap 12 (12-20) BUN 18 H (9-16) mg/dL Creatinine 0.67 (0.5-1.4) mg/dL Estim Creat Clear Calc 97.3 Estimated GFR > 60 Random Glucose 161 H (60-115) mg/dL Calcium 8.6 (8.4-10.2) mg/dL Total Bilirubin 0.2 (0.0-1.0) mg/dL AST 27 (5-31) U/L ALT 28 (0-31) U/L Alkaline Phosphatase 98 (39-117) U/L C-Reactive Protein 0.47 (< or = 0.50) mg/dL B-Natriuretic Peptide 18 (<100) pg/mL Total Protein 6.7 (6.5-8.0) g/dL Albumin 4.0 (3.5-5.0) g/dL Lipase 36 (8-78) U/L Urine Color Yellow Urine Appearance Clear Urine pH 6.0 (5.0-9.0) Ur Specific [place] 1.020 (1.005-1.025) Urine Protein Negative (Neg-Trace) mg/dL Urine Glucose (UA) 100 H (Negative) mg/dL Urine Ketones Negative (Negative) mg/dL Urine Blood Negative (Negative) Urine Nitrite Negative (Negative) Ur Leukocyte Esterase Small (1+) H (Negative) Urine RBC 0-2 (0-2) /HPF Urine WBC 0-5 (0-5) /HPF Ur Squamous Epith Cells 0-2 (0-2) /HPF Urine Bacteria None Seen (None Seen) Hyaline Casts 0-2 (0-2) /LPF Influenza Type A (PCR) NEGATIVE (Negative) Influenza Type B (PCR) NEGATIVE (Negative) RSV RNA Qual (PCR) NEGATIVE (Negative) SARS-CoV-2 RNA (RT-PCR) NEGATIVE (Negative) Discharge Plan Discharge Clinical Impression: Back pain, Bilateral leg edema, Tinea pedis Patient Disposition: Home, Self-Care Additional Instructions: Your testing in the emergency room today has been very reassuring. You may use ibuprofen and/or acetaminophen as needed for pain. Please use the clotrimazole cream topically to the areas of your feet which are bothering you. Apply the cream 2 times a day. Please contact your primary care doctor's office in the morning to set up a follow up appointment. Try to get an appointment next week to discuss these symptoms further. Return to the emergency room if significantly worse. Prescriptions: New clotrimazole 1 % cream 1 appl topical BID 28 Days Qty: 45 0RF ibuprofen 400 mg tablet 400 mg PO Q6H PRN (Reason: pain) Qty: 14 0RF acetaminophen 500 mg capsule 1,000 mg PO Q8H PRN (Reason: fever or pain) Qty: 14 0RF No Action melatonin 5 mg tablet 1 tab PO BEDTIME PRN (Reason: insomnia) meclizine 25 mg tablet 25 mg PO BID PRN (Reason: dizziness) Qty: 14 0RF ondansetron 4 mg tablet,disintegrating 4 mg PO Q8H PRN (Reason: nausea and vomiting) Qty: 10 0RF albuterol sulfate 90 mcg/actuation HFA aerosol inhaler 1 puff inhalation QID PRN (Reason: shortness of breath or wheezing) Qty: 8.5 0RF fluticasone propion-salmeterol [Advair HFA] 230-21 mcg/actuation HFA aerosol inhaler 2 puff INHALATION BID Biktarvy 50-200-25 mg tablet 1 tab PO QAM amlodipine 5 mg tablet 5 mg PO QAM calcium carbonate-vitamin D3 [Oyster Shell Calcium-Vit D3] 500 mg-5 mcg (200 unit) tablet 1 tab PO DAILY lidocaine 5 % adhesive patch,medicated topical cimetidine 200 mg tablet 200 mg PO BID Qty: 60 6RF Referrals: Anne Marie Locke MD [Physician, Family Practice] Print Language: Australian
[2025-05-08 02:06] LABS: Alanine Aminotransferase 28 U/L (0-31); Albumin Level 4.0 g/dL (3.5-5.0); Alkaline Phosphatase 98 U/L (39-117); Anion Gap 12 (12-20); Aspartate Amino Transferase 27 U/L (5-31); Blood Urea Nitrogen 18 mg/dL (9-16); Calcium 8.6 mg/dL (8.4-10.2); Carbon Dioxide 26 mmol/L (22-29); Chloride 108 mmol/L (96-108); Creatinine Clr Calc Pharmacy 97.3; Estimated Glomerular Filt Rate > 60; Lipase 36 U/L (8-78); Potassium 3.4 mmol/L (3.3-5.1); Sodium 143 mmol/L (135-145); Total Protein 6.7 g/dL (6.5-8.0)
[2025-05-08 02:12] LABS: B Type Natriuretic Peptide 18 pg/mL (<100)
[2025-05-08 02:49] LABS: Resp Syncy Virus RNA Qual PCR NEGATIVE (Negative); SARS COV2 PCR INHOUSE NEGATIVE (Negative)
[2025-05-08 03:18] LABS: Appearance Urine Clear; Glucose Urine UA 100 mg/dL (Negative); PH 6.0 (5.0-9.0); Specific Gravity - Urine 1.020 (1.005-1.025); UMIC TRIGGER UACC YES
[2025-05-08 03:32] LABS: UACC Culture Trigger YES
[2025-05-08 04:47] VITALS: BP 139/65; PULSE 77; RESP 22; TEMP 36.4; O2SAT 98
== END 2025-05-08 04:47 | disposition home or self-care (01) ==
PROVIDERS: Physician Assistant; Emergency Provider Emergency Medicine
DX: M54.9 Dorsalgia, unspecified (principal); B35.3 Tinea pedis; R60.9 Edema, unspecified; H91.3 Deaf nonspeaking, not elsewhere classified; R51.9 Headache, unspecified; Z79.899 Other long term (current) drug therapy
CPT/HCPCS: 71045; 72100; 80053; 81001; 83690; 83880; 85025; 86140; 87086; 87637; 93005; 99283; 99284

== ENCOUNTER → 2025-05-08 01:34 | Outpatient (BNV) | payer MEDICAID, SELFPAY | PROVIDERS: Emergency Provider Emergency Medicine; Visit Provider Internal Medicine Cardiovascular Disease | DX: R94.31 Abnormal electrocardiogram [ECG] [EKG] (principal); R06.00 Dyspnea, unspecified | CPT/HCPCS: 93010 ==

== ENCOUNTER → 2025-05-08 01:34 | Outpatient (BNV) | payer MEDICAID, SELFPAY | PROVIDERS: Emergency Provider Emergency Medicine; Visit Provider Radiology Diagnostic Radiology | DX: M54.50 Low back pain, unspecified (principal); R05.9 Cough, unspecified | CPT/HCPCS: 71045; 72100 ==

== ENCOUNTER 2025-05-13 11:25 | Outpatient (AMB) | payer MEDICAID, SELFPAY ==
--- NOTE | 2025-05-13 11:32 | MHC.OFFVIS ---
Vital Signs 05/13/25 11:33 Height 5 ft 4 in Weight 200 lb BMI 34.3 BP 140/80 H Intake Visit Reasons: annual Sorting And Folding Supervisor Required: Yes Sorting And Folding Supervisor Language: Household Appliances Service Technician Services: Sorting And Folding Supervisor Present (in person) Sorting And Folding Supervisor Name: Karley HERRING Information Interpreted: non-clinical & clinical Clerical And Administrative Workers: Clerical And Administrative Workers Present (Karley HERRING) Accompanied by: Self / Same As Patient Allergies adhesive tape (ADHESIVE TAPE) Allergy (Intermediate, Verified 05/13/25 11:44) RASH dolutegravir Allergy (Intermediate, Verified 05/13/25 11:44) rash Post menopausal: Yes HPI Comments Details: Presenting for annual exam. No complaints. Last Pap/HPV was negative in 12/19 Last Mammogram was BI-RADS 1 in 12/19 Last Colonoscopy was in 07/21, the recommendation was to repeat in 6-12 months [facility] Medical History (Updated 05/13/25 @ 12:00 by Tai King MD) Well woman exam COVID-19 Upper abdominal pain Umbilical hernia Dysplasia of cervix, low grade (KAREN 1) COVID-19 Right knee pain Asthma History of breast cancer Primary osteoarthritis of left knee Primary osteoarthritis of right knee Deafness HIV (human immunodeficiency virus infection) Surgical History H/O mastectomy Status post right breast lumpectomy History of tubal ligation Social History Household Members: None Housing: Apartment Are you a primary career advisor to a significant other at home: No Do you presently have visiting nurse or other home services: Yes Alcohol intake: unknown Patient Tobacco Use Status: Never used Tobacco service: No Current occupational status: disabled Current occupation: Right Handed Female Reproductive History Menstrual Age of Menarche: 89 Date of last pap smear: 12/05/23 Date of Mammogram: 12/26/23 Review of Systems Const All systems reviewed & are unremarkable except as noted in HPI and below Card Reports as per HPI Resp Reports as per HPI GI Reports as per HPI and Reports no additional complaints Reports as per HPI Physical Exam Vital Signs: Last Vital Signs BP 140/80 H 05/13/25 11:33 BMI result Body Mass Index 34.3 Const General: cooperative, healthy appearing and comfortable Chest Chest palpation & inspection: normal inspection of the chest and normal palpation of entire chest wall Breast/axilla inspection: normal inspection of the breasts and normal inspection of the axillae Breast/axilla palpation: palpation of the breasts abnormal (Right breast surgically absent, left breast within normal), normal palpation of the axillae and no axillary lymphadenopathy Resp Effort & Inspection: normal respiratory effort Auscultation: clear to auscultation bilaterally Percussion: percussion normal Cardio Palpation: normal PMI Rate: regular rate Rhythm: regular rhythm Heart sounds: no murmurs and no rubs Peripheral pulses: Peripheral pulses 2+ throughout GI Inspection: Yes normal to inspection Palpation (GI): Soft to palpation, nontender, no guarding, not rigid and No hepatosplenomegaly present Percussion: Yes normal to percussion Auscultation: normal bowel sounds Rectal Exam - Female: deferred General: Yes bladder normal to palpation External Female Exam: No lesion Speculum Exam - Vagina: normal appearance of the vagina, normal palpation, normal vaginal discharge and not erythematous Speculum Exam - Cervix: normal appearance of the cervix and normal palpation Bimanual exam- vagina & uterus: normal bimanual exam, normal palpation, uterine size normal, bladder normal to palpation, consistency normal and normal palpation Bimanual Exam- Adnexa, other: normal adnexae, no masses and no tenderness Assessment & Plan Assessment & Plan (1) Well woman exam: Comment: HIV positive Code(s): Z01.419 - Encounter for gynecological examination (general) (routine) without abnormal findings Category: Medical Plan: Co testing not indicated this year. Counseled the patient about the recommended dietary allowance of 1200 mg of Calcium & 600 IU of vitamin D. Mammogram ordered. The patient was referred to GI for screening colonoscopy . The patient was instructed to perform monthly self-breast exams and schedule annual exam in a year. All questions answered and the patient verbalized understanding. (2) Pelvic pain: Code(s): R10.2 - Pelvic and perineal pain Category: Medical Plan: Urine dip showed microscopic hematuria. pelvic ultrasound ordered. Discussed with the patient the differential diagnosis of pelvic pain including but not limited to adnexal, uterine masses, pelvic infections (PID), GI the (Irritable bowel syndrome, diverticulitis, others), musculoskeletal, myofascial pain abdominal wall , adhesions, endometriosis, psychological and others causes. Will check results and treat accordingly. All questions answered, the patient verbalized understanding. Instructed the patient to schedule an ultrasound and a follow-up appointment in 2 weeks. All questions answered, the patient verbalized understanding and agreed with the plan. (3) Microscopic hematuria: Code(s): R31.29 - Other microscopic hematuria Category: Medical Plan: Urine dip showed microscopic hematuria, urine culture sent. Will repeat urine dip in 2 weeks. Discussed with the patient the possible causes of microscopic hematuria including but not limited to: interstitial cystitis, polyps, stones, masses, urethral inflammatory processes and others. If Urine Culture is negative and repeat urine dip in 2 weeks shows persistent microscopic hematuria, will proceed with CT abdomen/pelvis and urology referral. Instructions given the patient to schedule a 2 week urine dip follow-up appointment. All questions answered and the patient verbalized understanding. Orders: Orders MM tomosynthesis screening LT Today Z12.31 - Encounter for screening mammogram for malignant neoplasm of breast US pelvic and transvaginal Today R10.2 - Pelvic and perineal pain Referrals Gastroenterology Referral Z12.11 - Encounter for screening for malignant neoplasm of colon Coding Level of Care Code Est Pt Level 3 (87305) Est Pt Prev Care 40-64y(54213) Diagnoses Well woman exam Z01.419 Pelvic pain R10.2 Microscopic hematuria R31.29
[2025-05-13 11:33] VITALS: BP 140/80; BMI 34.3
== END 2025-05-13 12:08 | disposition home or self-care (01) ==
LOC: HO.HWS 11:25
PROVIDERS: Visit Provider Obstetrics & Gynecology
DX: Z01.419 Encounter for gynecological examination (general) (routine) without abnormal findings (principal); R10.2 Pelvic and perineal pain; R31.29 Other microscopic hematuria
CPT/HCPCS: 99213; 99396; 99459

== ENCOUNTER 2025-05-13 11:25 | Outpatient (REF) | payer MEDICAID, SELFPAY | END 2025-05-13 11:26 | disposition home or self-care (01) | LOC: HO.LNP 11:25 | PROVIDERS: Visit Provider Obstetrics & Gynecology | DX: Z01.419 Encounter for gynecological examination (general) (routine) without abnormal findings (principal); R10.2 Pelvic and perineal pain; R31.29 Other microscopic hematuria; Z12.31 Encounter for screening mammogram for malignant neoplasm of breast; Z12.11 Encounter for screening for malignant neoplasm of colon; Z98.51 Tubal ligation status | CPT/HCPCS: 81002; 87086; 99212; 99396 ==

== ENCOUNTER 2025-05-15 11:38 | Outpatient (REF) | payer MEDICAID, SELFPAY ==
[2025-05-15 13:02] LABS: MANUAL DIFF FLAG NO
[2025-05-15 13:12] LABS: Hematocrit 38.6 % (37.0-47.0); Hemoglobin 12.6 g/dl (12.0-16.0); Imm Gran Abs Auto 0.02 X10*3/uL (0.00-0.03); Imm Gran Pct Auto 0.3 % (0.0-0.4); Lymphocytes Absolute Auto 2.2 X10*3/uL (1.2-4.9); Mean Corpuscular HGB Conc 32.6 g/dl (31.0-35.0); Mean Corpuscular Hemoglobin 28.3 pg (27.0-33.0); Mean Corpuscular Volume 86.7 fL (80.0-98.0); NRBC Abs Auto 0.000 X10*3/uL (0.0-0.012); NRBC Pct Auto 0.0 /100WBC (0.0-0.2); Platelet Count 295 X10*3/uL (160-400); Red Blood Count 4.45 X10*6/uL (4.20-5.50); White Blood Count 6.4 X10*3/uL (4.8-10.8)
[2025-05-15 13:30] LABS: Total Hemoglobin (HGBA1C) 3308.8724 umol/L
[2025-05-15 13:42] LABS: Alanine Aminotransferase 30 U/L (0-31); Albumin Level 4.4 g/dL (3.5-5.0); Alkaline Phosphatase 94 U/L (39-117); Anion Gap 12 (12-20); Aspartate Amino Transferase 27 U/L (5-31); Blood Urea Nitrogen 17 mg/dL (9-16); Calcium 9.0 mg/dL (8.4-10.2); Carbon Dioxide 25 mmol/L (22-29); Chloride 109 mmol/L (96-108); Estimated Glomerular Filt Rate > 60; Potassium 3.8 mmol/L (3.3-5.1); Sodium 142 mmol/L (135-145); Total Protein 7.4 g/dL (6.5-8.0)
[2025-05-15 14:30] LABS: Microalbum/Creatinine Ratio Ur 9.7 ug/mg cr (<30)
[2025-05-16 06:03] LABS: Rubeola IgG (Measles) 174.00 AU/mL
[2025-05-16 09:27] LABS: HBS Num1 1.50 mIU/mL (0-7.99); HBc Num1 0.06 S/CO (0.00-0.79); HBsAGNum1 0.37 S/CO (0.00-0.99); Hepatitis B Surface Antigen Negative (Negative); ~Hepatitis B Surface Antibody NONREACTIVE (Nonreactive)
[2025-05-16 15:33] LABS: HIV RNA PCR Qn Copies 40 copies/mL (NOT DETECTED); HIV RNA PCR Qn Log Copies 1.60 (NOT DETECTED)
[2025-05-21 17:33] LABS: Absolute CD3 Count 1992 cells/uL (840-3060); Absolute CD8 Count 1228 cells/uL (180-1170); Percent CD3 Cells 85 % (57-85); Percent CD8 Cells 52 % (12-42)
== END 2025-05-15 11:39 | disposition home or self-care (01) ==
LOC: HO.HHCL 11:38
PROVIDERS: Nurse Practitioner Primary Care; PCP Family Medicine; Visit Provider Student in an Organized Health Care Education/Training Program
DX: Z01.84 Encounter for antibody response examination (principal); I10 Essential (primary) hypertension; Z21 Asymptomatic human immunodeficiency virus [HIV] infection status; R73.03 Prediabetes; Z11.59 Encounter for screening for other viral diseases
CPT/HCPCS: 36415; 80053; 82043; 82570; 83036; 85025; 86359; 86360; 86704; 86706; 86735; 86762; 86765; 87340; 87536